=== PATIENT | female | born 1945 | race Two or more races ===

== ENCOUNTER → 2017-09-05 | Outpatient (CLI) | payer OTHER ==
[2017-09-05] MEDS: REGADENOSON 0.4 MG/5 ML DISP.SYRIN. IV (09:51)
== END | disposition home or self-care (01) ==
LOC: NM 07:59
DX: I73.9 Peripheral vascular disease, unspecified (principal); K21.9 Gastro-esophageal reflux disease without esophagitis; R06.00 Dyspnea, unspecified
CPT/HCPCS: 78452; 93017; 93925; 93970; 96374; 96375; 96376; A9500; J2785

== ENCOUNTER → 2017-09-29 | Outpatient (CLI) | payer OTHER | END | disposition home or self-care (01) | LOC: ECHO 11:46 | DX: I51.7 Cardiomegaly (principal); K21.9 Gastro-esophageal reflux disease without esophagitis; R07.9 Chest pain, unspecified | CPT/HCPCS: 93306 ==

== ENCOUNTER 2018-01-03 17:23 | Inpatient (IN) | payer OTHER ==
[~2018-01-03] VITALS: Ht 160 cm; Wt 64.4 kg
[2018-01-03] MEDS ORDERED: MORPHINE SULFATE 4 MG/ML VIAL. IV ONE (18:15)
[2018-01-03] MEDS ORDERED: CONTRAST GIVEN. MC PRN (18:15)
[2018-01-03] MEDS ORDERED: IOHEXOL 300 MG/ML 100ML VIAL. IV ONE (18:15)
[2018-01-03] MEDS ORDERED: ONDANSETRON PF 4 MG/2 ML VIAL. IV ONE (18:15)
[2018-01-03 18:24] LABS: BASO # 0.1 x10^3/uL (0.0-0.2); BASO % 1 % (0-3); EOS % 0 % (0-3); HEMATOCRIT 37.6 % (36.0-47.0); HEMOGLOBIN 12.3 g/dL (12.0-15.5); LYMPH # 0.5 x10^3/uL (1.0-4.8); LYMPH % 4 % (24-48); MEAN CORPUSCULAR HEMOGLOBIN 26 pg (25-35); MEAN CORPUSCULAR HGB CONC 33 g/dL (31-37); MEAN CORPUSCULAR VOLUME 80 fL (79-100); MONO # 0.9 x10^3/uL (0.0-1.1); MONO % 5 % (0-9); NEUT # 14.3 x10^3uL (1.8-7.7); NEUT % 91 % (31-73); PLATELET COUNT 231 x10^3/uL (140-400); RED CELL DISTRIBUTION WIDTH 15.9 % (11.5-14.5); WHITE BLOOD COUNT 15.8 x10^3/uL (4.0-11.0)
[2018-01-03 18:25] LABS: BILIRUBIN,URINE NEGATIVE (NEG); CLARITY,URINE CLEAR; COLOR,URINE YELLOW; NITRITE,URINE NEGATIVE (NEG); PH,URINE 8.5; PROTEIN,URINE NEGATIVE (NEG-TRACE)
[2018-01-03 18:32] LABS: BACTERIA,URINE 0 /HPF (0-FEW); RBC,URINE 0 /HPF (0-2); SQUAMOUS EPITHELIAL CELL,UR FEW /LPF; WBC,URINE RARE /HPF (0-4)
[2018-01-03 18:35] LABS: CALCIUM 9.8 mg/dL (8.5-10.1); CREATININE 0.6 mg/dL (0.6-1.0); GFR 98.5; POTASSIUM 3.9 mmol/L (3.5-5.1)
[2018-01-03 18:41] LABS: ALBUMIN 3.6 g/dL (3.4-5.0); DIRECT BILIRUBIN 0.1 mg/dL (0.0-0.2); TOTAL BILIRUBIN 0.5 mg/dL (0.2-1.0); TOTAL PROTEIN 7.5 g/dL (6.4-8.2)
--- NOTE | 2018-01-03 19:00 | PHYS DOC ---
Past Medical History Past Medical History: Diabetes-Type I Additional Past Surgical Histo: CYST REMOVAL ON OVARY Alcohol Use: None Adult General Chief Complaint Chief Complaint: ABDOMINAL PAIN HPI HPI Patient is a 72 year old female who presents with abdominal pain. Patient is a Portuguese speaking 72-year-old female who complains of diffuse abdominal pain over the last 3-4 days. Pain is not localized. She does have a history of hysterectomy previously. This was many years ago. She has some nausea and did have one episode of emesis as she was checking into the emergency department. She denies hematemesis or hematochezia or melanotic stools. Her last bowel movement was 3 days ago which is not normal for her. She denies urinary symptoms. She denies prior history of similar symptoms. Review of Systems Review of Systems Constitutional: Denies Eyes: Denies change in visual acuity HENT: Denies nasal congestion Respiratory: Denies cough Cardiovascular: No additional information GI: as documented above : Denies dysuria or hematuria Musculoskeletal: Denies back pain Integument: Denies rash or skin lesions Neurologic: Denies headache Endocrine: Denies polyuria All other systems were reviewed and found to be within normal limits, except as documented in this note. Current Medications Current Medications Allergies Allergies Allergies Coded Allergies Type Severity Reaction Last Updated Verified No Known Drug Allergies 09/05/17 No Physical Exam Physical Exam Constitutional: Well developed, well nourished, no acute distress HENT: Normocephalic, atraumatic, bilateral external ears normal, oropharynx moist Eyes: PERRLA, EOMI, conjunctiva normal Neck: Normal range of motion, no tenderness Cardiovascular:Heart rate regular rhythm, no murmur Lungs & Thorax: Bilateral breath sounds clear to auscultation Abdomen: Soft, TTP over right LQ. mildly guarded Skin: Warm, dry, no erythema Back: No tenderness Extremities: No tenderness, no edema Neurologic: Alert and oriented X 3 Psychologic: Affect normal Current Patient Data Vital Signs Lab Values EKG EKG No STEMI Interpretation Time: 19:25 Radiology/Procedures Radiology/Procedures FINDINGS: Images through the lung bases demonstrate minimal dependent subsegmental atelectasis bilaterally. The liver parenchyma has a decreased attenuation consistent with mild fatty infiltration. The spleen, pancreas, adrenal glands and kidneys are within normal limits. Moderate atherosclerotic calcification of the abdominal aorta is seen. The abdominal aorta tapers normally. Calcified gallstones are seen within the gallbladder. No free fluid or free air is seen within the abdomen. There is no evidence of bowel obstruction. The appendix is dilated measuring 1.8 cm in diameter. Mild wall thickening of the appendix is seen. Increased density is seen within the adjacent fat. These findings are consistent with acute appendicitis. No abnormal fluid collection is seen to suggest evidence of an abscess. Images through the pelvis demonstrate the urinary bladder distended with urine. Calcifications are seen within the pelvis consistent with phleboliths. No free fluid is seen. Multiple diverticula are seen involving the sigmoid colon. Degenerative changes are seen involving the thoracic and throughout the lumbar spine and both hips. IMPRESSION: Findings consistent with acute appendicitis. Course & Med Decision Making Course & Med Decision Making Pertinent Labs and Imaging studies reviewed. (See chart for details) Patient is seen and examined. Morphine for pain. CT scan and standard abd pain workup. Trop/EKG. 19:45: Pain is currently improved. CT scan is revealing for acute appendicitis which is consistent with the patient's presentation. She last ate at 9 AM this morning. Surgery is consulted. 20:30: Discussed with Dr. Peralta who will take patient to OR in the am. Patient is currently stable with no fever. She has mildly elevated white blood cell count but is nontoxic in appearance. Her abdominal exam is positive for tenderness at McBurney's point but no guarding or rebound. I also spoke to the patient's primary care physician, Dr. Drake, who will primarily admit. Orders are placed for Ancef 2 g as well as Flagyl 500. Patient's family member is primary implementation manager. All results are explained and all of her questions are answered prior to admission. She is agreeable to the plan of care. Dragon Disclaimer Dragon Disclaimer This electronic medical record was generated, in whole or in part, using a voice recognition dictation system. Departure Departure Referrals: ELLIOTT DRAKE MD (PCP) ALFREDA MAHONEY DO Jan 03, 2018 19:00
--- NOTE | 2018-01-03 19:26 | RAD ---
CT scan of the abdomen and pelvis with contrast 01/03/2018 CLINICAL HISTORY: Abdominal pain with nausea. TECHNIQUE: After the intravenous administration of 75 cc of Omnipaque 300, contiguous, 5 mm axial sections were obtained through the abdomen and pelvis. One or more of the following individualized dose reduction techniques were utilized for this study: 1. Automated exposure control. 2. Adjustment of the mA and/or kV according to patient size. 3. Use of iterative reconstruction technique. FINDINGS: Images through the lung bases demonstrate minimal dependent subsegmental atelectasis bilaterally. The liver parenchyma has a decreased attenuation consistent with mild fatty infiltration. The spleen, pancreas, adrenal glands and kidneys are within normal limits. Moderate atherosclerotic calcification of the abdominal aorta is seen. The abdominal aorta tapers normally. Calcified gallstones are seen within the gallbladder. No free fluid or free air is seen within the abdomen. There is no evidence of bowel obstruction. The appendix is dilated measuring 1.8 cm in diameter. Mild wall thickening of the appendix is seen. Increased density is seen within the adjacent fat. These findings are consistent with acute appendicitis. No abnormal fluid collection is seen to suggest evidence of an abscess. Images through the pelvis demonstrate the urinary bladder distended with urine. Calcifications are seen within the pelvis consistent with phleboliths. No free fluid is seen. Multiple diverticula are seen involving the sigmoid colon. Degenerative changes are seen involving the thoracic and throughout the lumbar spine and both hips. IMPRESSION: Findings consistent with acute appendicitis. Electronically signed by: Aroldo Sutton MD (01/03/2018 7:23 PM) [facility]
[2018-01-03] MEDS ORDERED: ONDANSETRON PF 4 MG/2 ML VIAL. IV PRN (20:00)
[2018-01-03] MEDS ORDERED: IV RINGERS,LACTATED 1000ML 1,000 ML IV ONE (20:00)
[2018-01-03] MEDS: MORPHINE SULFATE 4 MG/ML VIAL. IV PRN (20:31)
[2018-01-03 21:15] VITALS: BP 117/51
[2018-01-03] MEDS ORDERED: LISI-334 PO (22:21)
[2018-01-03] MEDS ORDERED: INSU100I13 SQ (22:21)
[2018-01-03] MEDS ORDERED: ATOR20TA58 PO (22:21)
[2018-01-03] MEDS ORDERED: METF10007 PO (22:21)
[2018-01-03] MEDS ORDERED: INSU100C4 SQ (22:21)
[2018-01-03 23:00] VITALS: BP 111/48
[2018-01-04] VITALS (11 sets, daily range): BP systolic 108–128; BP diastolic 45–65
--- NOTE | 2018-01-04 00:03 | EKG ---
[facility] [address] [place] [address] Test Date: 2018-01-03 Test Time: 19:21:23 Pat Name: RAJIV BARRERA Department: Room: 418 1 Gender: Female Anesthesia Director: : [id number] Requested By: ALFREDA MAHONEY Order Number: [id number] Reading MD: Robert Carter MD Measurements Intervals [place] Rate: 88 P: NV: QRS: 43 QRSD: 90 T: 37 QT: 366 QTc: 446 Interpretive Statements SR PAC'S Electronically Signed On 01-04-2018 8:10:27 CDT by Robert Carter MD
[2018-01-04] MEDS: MORPHINE SULFATE 4 MG/ML VIAL. IV PRN (00:53)
[2018-01-04 06:58] LABS: BASO % 0 % (0-3); EOS % 0 % (0-3); HEMATOCRIT 34.3 % (36.0-47.0); HEMOGLOBIN 11.3 g/dL (12.0-15.5); LYMPH # 0.5 x10^3/uL (1.0-4.8); LYMPH % 3 % (24-48); MEAN CORPUSCULAR HEMOGLOBIN 27 pg (25-35); MEAN CORPUSCULAR HGB CONC 33 g/dL (31-37); MEAN CORPUSCULAR VOLUME 81 fL (79-100); MONO # 1.5 x10^3/uL (0.0-1.1); MONO % 8 % (0-9); NEUT # 16.7 x10^3uL (1.8-7.7); NEUT % 89 % (31-73); PLATELET COUNT 209 x10^3/uL (140-400); RED BLOOD COUNT 4.25 x10^6/uL (3.50-5.40); RED CELL DISTRIBUTION WIDTH 15.9 % (11.5-14.5); WHITE BLOOD COUNT 18.8 x10^3/uL (4.0-11.0)
[2018-01-04 07:21] LABS: CALCIUM 9.2 mg/dL (8.5-10.1); CREATININE 0.7 mg/dL (0.6-1.0); GFR 82.5; POTASSIUM 3.7 mmol/L (3.5-5.1)
[2018-01-04 08:35] LABS: % BANDS 18 % (0-9); % LYMPHS 3 % (24-48); % MONOS 6 % (0-10); % SEGS 73 % (35-66)
[2018-01-04 08:36] LABS: PLT ESTIMATE ADEQUATE (ADEQUATE)
--- NOTE | 2018-01-04 08:37 | PDOC2 ---
CONSULT Date of Consult Date of Consult DATE: 01/04/18 TIME: 08:31 History of Present Illness Reason for Visit: The patient is a 72 year old female who has been experiencing 3 days of abdominal pain. The pain worsened yesterday and localized to the RLQ. She has associated vomiting. Past Medical History Past Medical History Diabetes Past Surgical History Past Surgical History Ovarian excision Current Medications Current Medications Current Medications Iohexol (Omnipaque 300 Mg/ml) 75 ml 1X ONCE IV Last administered on 01/03/18at 18:15; Start 01/03/18 at 18:15; Stop 01/03/18 at 18:16; Status DC Info (CONTRAST GIVEN -- Rx MONITORING) 1 each PRN DAILY PRN MC SEE COMMENTS; Start 01/03/18 at 18:15; Stop 01/05/18 at 18:14 Morphine Sulfate (Morphine Sulfate) 4 mg 1X ONCE IV Last administered on at 18:46; Start 01/03/18 at 18:15; Stop 01/03/18 at 18:18; Status DC Ondansetron HCl (Zofran) 4 mg 1X ONCE IV Last administered on 01/03/18at 18:44 ; Start 01/03/18 at 18:15; Stop 01/03/18 at 18:18; Status DC Ondansetron HCl (Zofran) 4 mg PRN Q8HRS PRN IV NAUSEA/VOMITING Last administered on 01/03/18at 21:28; Start 01/03/18 at 20:00; Stop 01/04/18 at 19:59 Morphine Sulfate (Morphine Sulfate) 4 mg PRN Q2HR PRN IV PAIN Last administered on 01/04/18at 00:53; Start 01/03/18 at 20:00; Stop 01/04/18 at 19:59 Ringer's Solution 1,000 ml @ 75 mls/hr 1X ONCE IV Last administered on at 21:48; Start 01/03/18 at 20:00; Stop 01/04/18 at 09:19 Cefazolin Sodium/ Dextrose 50 ml @ 100 mls/hr 1X ONCE IV Last administered on 01/03/18at 20:35; Start 01/03/18 at 20:00; Stop 01/03/18 at 20:29; Status DC Metronidazole 100 ml @ 100 mls/hr 1X ONCE IV Last administered on 01/03/18at 21:48; Start 01/03/18 at 20:00; Stop 01/03/18 at 20:59; Status DC Active Scripts Active Reported Atorvastatin Calcium 20 Mg Tablet 1 Tab PO DAILY Lisinopril 20 Mg Tablet 1 Tab PO DAILY Metformin Hcl 1,000 Mg Tablet 1,000 Mg PO BID Novolog (Insulin Aspart) 100 Unit/1 Ml Cartridge 15 Unit SQ TIDWMEALS Lantus Solostar (Insulin Glargine,Hum.rec.anlog) 100 Unit/1 Ml Insuln.pen 40 Unit SQ QHS Allergies Allergies: Coded Allergies: No Known Drug Allergies (Unverified , 09/05/17) ROS General: No: Chills, Night Sweats, Fatigue, Malaise, Appetite, Other PSYCHOLOGICAL ROS: No: Anxiety, Behavioral Disorder, Concentration difficultie , Decreased libido, Depression, Disorientation, Hallucinations, Hostility, Irritablity, Memory difficulties, Mood Swings, Obsessive thoughts, Physical abuse, Sexual abuse, Sleep disturbances, Suicidal ideation, Other Eyes: No Blurry vision, No Decreased vision, No Double vision, No Dry eyes, No Excessive tearing, No Eye Pain, No Itchy Eyes, No Loss of vision, No Photophobia , No Scotomata, No Uses contacts, No Uses glasses, No Other HEENT: No: Heacaches, Visual Changes, Hearing change, Nasal congestion, Nasal discharge, Oral lesions, Sinus pain, Sore Throat, Epistaxis, Sneezing, Snoring, Tinnitus, Vertigo, Vocal changes, Other Respiratory: No: Cough, Hemoptysis, Orthopnea, Pleuritic Pain, Shortness of breath, SOB with excertion, Sputum Changes, Stridor, Tachypnea, Wheezing, Other Cardiovascular: No Chest Pain, No Palpitations, No Orthopnea, No Paroxysmal Noc. Dyspnea, No Edema, No Lt Headedness, No Other Gastrointestinal: No Nausea, No Vomiting, No Abdominal Pain, No Diarrhea, No Constipation, No Melena, No Hematochezia, No Other Genitourinary: No Dysuria, No Frequency, No Incontinence, No Hematuria, No Retention, No Discharge, No Urgency, No Pain, No Flank Pain, No Other, No , No , No , No , No , No , No Musculoskeletal: No Gait Disturbance, No Joint Pain, No Joint Stiffness, No Joint Swelling, No Muscle Pain, No Muscular Weakness, No Pain In:, No Swelling In:, No Other Skin: No Dry Skin, No Eczema, No Hair Changes, No Lumps, No Mole Changes, No Mottling, No Nail Changes, No Pruritus, No Rash, No Skin Lesion Changes, No Other, No Acne Physical Exam General: Alert, Oriented X3, Cooperative HEENT: Atraumatic Lungs: Clear to auscultation Abdomen: Soft (obese, tender low abdomen, worse RLQ) Extremities: No clubbing, No cyanosis Skin: No rashes, No breakdown Neuro: Normal gait, Normal speech Psych/Mental Status: Mental status NL MUSCULOSKELETAL: No joint tenderness, No swelling Vitals VITALS Vital Signs Date Time Temp Pulse Resp B/P (MAP) Pulse Ox O2 Delivery O2 Flow Rate FiO2 01/04/18 07:00 98.3 90 16 113/53 (73) 94 Room Air 98.3 01/03/18 23:00 2.0 Labs Labs Laboratory Tests Test 01/03/18 18:15 01/03/18 23:02 01/04/18 05:48 01/04/18 06:30 White Blood Count 15.8 x10^3/uL (4.0-11.0) 18.8 x10^3/uL (4.0-11.0) Red Blood Count 4.70 x10^6/uL (3.50-5.40) 4.25 x10^6/uL (3.50-5.40) Hemoglobin 12.3 g/dL (12.0-15.5) 11.3 g/dL (12.0-15.5) Hematocrit 37.6 % (36.0-47.0) 34.3 % (36.0-47.0) Mean Corpuscular Volume 80 fL (79-100) 81 fL (79-100) Mean Corpuscular Hemoglobin 26 pg (25-35) 27 pg (25-35) Mean Corpuscular Hemoglobin Concent 33 g/dL (31-37) 33 g/dL (31-37) Red Cell Distribution Width 15.9 % (11.5-14.5) 15.9 % (11.5-14.5) Platelet Count 231 x10^3/uL (140-400) 209 x10^3/uL (140-400) Neutrophils (%) (Auto) 91 % (31-73) 89 % (31-73) Lymphocytes (%) (Auto) 4 % (24-48) 3 % (24-48) Monocytes (%) (Auto) 5 % (0-9) 8 % (0-9) Eosinophils (%) (Auto) 0 % (0-3) 0 % (0-3) Basophils (%) (Auto) 1 % (0-3) 0 % (0-3) Neutrophils # (Auto) 14.3 x10^3uL (1.8-7.7) 16.7 x10^3uL (1.8-7.7) Lymphocytes # (Auto) 0.5 x10^3/uL (1.0-4.8) 0.5 x10^3/uL (1.0-4.8) Monocytes # (Auto) 0.9 x10^3/uL (0.0-1.1) 1.5 x10^3/uL (0.0-1.1) Eosinophils # (Auto) 0.0 x10^3/uL (0.0-0.7) 0.0 x10^3/uL (0.0-0.7) Basophils # (Auto) 0.1 x10^3/uL (0.0-0.2) 0.0 x10^3/uL (0.0-0.2) Urine Collection Type Unknown Urine Color Yellow Urine Clarity Clear Urine pH 8.5 Urine Specific [place] 1.020 Urine Protein Negative mg/dL (NEG-TRACE) Urine Glucose (UA) Negative mg/dL (NEG) Urine Ketones (Stick) Trace mg/dL (NEG) Urine Blood Negative (NEG) Urine Nitrite Negative (NEG) Urine Bilirubin Negative (NEG) Urine Urobilinogen Dipstick 1.0 mg/dL (0.2 mg/dL) Urine Leukocyte Esterase Negative (NEG) Urine RBC 0 /HPF (0-2) Urine WBC Rare /HPF (0-4) Urine Squamous Epithelial Cells Few /LPF Urine Bacteria 0 /HPF (0-FEW) Urine Mucus Mod /LPF Sodium Level 139 mmol/L (136-145) 139 mmol/L (136-145) Potassium Level 3.9 mmol/L (3.5-5.1) 3.7 mmol/L (3.5-5.1) Chloride Level 102 mmol/L (98-107) 102 mmol/L (98-107) Carbon Dioxide Level 28 mmol/L (21-32) 29 mmol/L (21-32) Anion Gap 9 (6-14) 8 (6-14) Blood Urea Nitrogen 14 mg/dL (7-20) 15 mg/dL (7-20) Creatinine 0.6 mg/dL (0.6-1.0) 0.7 mg/dL (0.6-1.0) Estimated GFR (Cockcroft-Gault) 98.5 82.5 Glucose Level 188 mg/dL (70-99) 173 mg/dL (70-99) Lactic Acid Level 1.5 mmol/L (0.4-2.0) Calcium Level 9.8 mg/dL (8.5-10.1) 9.2 mg/dL (8.5-10.1) Total Bilirubin 0.5 mg/dL (0.2-1.0) Direct Bilirubin 0.1 mg/dL (0.0-0.2) Aspartate Amino Transf (AST/SGOT) 12 U/L (15-37) Alanine Aminotransferase (ALT/SGPT) 19 U/L (14-59) Alkaline Phosphatase 96 U/L (46-116) Troponin I Quantitative < 0.017 ng/mL (0.000-0.055) Total Protein 7.5 g/dL (6.4-8.2) Albumin 3.6 g/dL (3.4-5.0) Lipase 67 U/L (73-393) Glucose (Fingerstick) 162 mg/dL (70-99) 177 mg/dL (70-99) Test 01/04/18 07:41 Glucose (Fingerstick) 159 mg/dL (70-99) Laboratory Tests Test 01/03/18 18:15 01/03/18 23:02 01/04/18 05:48 01/04/18 06:30 White Blood Count 15.8 x10^3/uL (4.0-11.0) 18.8 x10^3/uL (4.0-11.0) Red Blood Count 4.70 x10^6/uL (3.50-5.40) 4.25 x10^6/uL (3.50-5.40) Hemoglobin 12.3 g/dL (12.0-15.5) 11.3 g/dL (12.0-15.5) Hematocrit 37.6 % (36.0-47.0) 34.3 % (36.0-47.0) Mean Corpuscular Volume 80 fL (79-100) 81 fL (79-100) Mean Corpuscular Hemoglobin 26 pg (25-35) 27 pg (25-35) Mean Corpuscular Hemoglobin Concent 33 g/dL (31-37) 33 g/dL (31-37) Red Cell Distribution Width 15.9 % (11.5-14.5) 15.9 % (11.5-14.5) Platelet Count 231 x10^3/uL (140-400) 209 x10^3/uL (140-400) Neutrophils (%) (Auto) 91 % (31-73) 89 % (31-73) Lymphocytes (%) (Auto) 4 % (24-48) 3 % (24-48) Monocytes (%) (Auto) 5 % (0-9) 8 % (0-9) Eosinophils (%) (Auto) 0 % (0-3) 0 % (0-3) Basophils (%) (Auto) 1 % (0-3) 0 % (0-3) Neutrophils # (Auto) 14.3 x10^3uL (1.8-7.7) 16.7 x10^3uL (1.8-7.7) Lymphocytes # (Auto) 0.5 x10^3/uL (1.0-4.8) 0.5 x10^3/uL (1.0-4.8) Monocytes # (Auto) 0.9 x10^3/uL (0.0-1.1) 1.5 x10^3/uL (0.0-1.1) Eosinophils # (Auto) 0.0 x10^3/uL (0.0-0.7) 0.0 x10^3/uL (0.0-0.7) Basophils # (Auto) 0.1 x10^3/uL (0.0-0.2) 0.0 x10^3/uL (0.0-0.2) Urine Collection Type Unknown Urine Color Yellow Urine Clarity Clear Urine pH 8.5 Urine Specific [place] 1.020 Urine Protein Negative mg/dL (NEG-TRACE) Urine Glucose (UA) Negative mg/dL (NEG) Urine Ketones (Stick) Trace mg/dL (NEG) Urine Blood Negative (NEG) Urine Nitrite Negative (NEG) Urine Bilirubin Negative (NEG) Urine Urobilinogen Dipstick 1.0 mg/dL (0.2 mg/dL) Urine Leukocyte Esterase Negative (NEG) Urine RBC 0 /HPF (0-2) Urine WBC Rare /HPF (0-4) Urine Squamous Epithelial Cells Few /LPF Urine Bacteria 0 /HPF (0-FEW) Urine Mucus Mod /LPF Sodium Level 139 mmol/L (136-145) 139 mmol/L (136-145) Potassium Level 3.9 mmol/L (3.5-5.1) 3.7 mmol/L (3.5-5.1) Chloride Level 102 mmol/L (98-107) 102 mmol/L (98-107) Carbon Dioxide Level 28 mmol/L (21-32) 29 mmol/L (21-32) Anion Gap 9 (6-14) 8 (6-14) Blood Urea Nitrogen 14 mg/dL (7-20) 15 mg/dL (7-20) Creatinine 0.6 mg/dL (0.6-1.0) 0.7 mg/dL (0.6-1.0) Estimated GFR (Cockcroft-Gault) 98.5 82.5 Glucose Level 188 mg/dL (70-99) 173 mg/dL (70-99) Lactic Acid Level 1.5 mmol/L (0.4-2.0) Calcium Level 9.8 mg/dL (8.5-10.1) 9.2 mg/dL (8.5-10.1) Total Bilirubin 0.5 mg/dL (0.2-1.0) Direct Bilirubin 0.1 mg/dL (0.0-0.2) Aspartate Amino Transf (AST/SGOT) 12 U/L (15-37) Alanine Aminotransferase (ALT/SGPT) 19 U/L (14-59) Alkaline Phosphatase 96 U/L (46-116) Troponin I Quantitative < 0.017 ng/mL (0.000-0.055) Total Protein 7.5 g/dL (6.4-8.2) Albumin 3.6 g/dL (3.4-5.0) Lipase 67 U/L (73-393) Glucose (Fingerstick) 162 mg/dL (70-99) 177 mg/dL (70-99) Test 01/04/18 07:41 Glucose (Fingerstick) 159 mg/dL (70-99) Assessment/Plan Assessment/Plan 72 year old female with RLQ pain, CT consistent with appendicitis. Plan to OR for laparoscopy. The details and risks of surgery were discussed with the patient and her daughter. She understands and would like to proceed. CAITLIN STEVE MD Jan 04, 2018 08:37
[2018-01-04] MEDS ORDERED: PROPOFOL 20 ML IV ONE (09:04)
[2018-01-04] MEDS ORDERED: SUCCINYLCHOLINE 200 MG/10 ML VIAL. ONE (09:04)
[2018-01-04] MEDS ORDERED: ROCURONIUM 50 MG/5 ML VIAL. ONE (09:04)
[2018-01-04] MEDS ORDERED: fentaNYL PF VIAL 100 MCG/2 ML VIAL ONE ×3 (09:04→14:02)
[2018-01-04] MEDS ORDERED: BUPIVACAINE-EPI 0.5%-1:200000 50 ML VIAL. ONE (09:27)
[2018-01-04] MEDS ORDERED: PIPERACILLIN/TAZOBACTAM 3.375 GM in IV NORMAL SALINE 50ML 50 ML IV ONE (09:45)
[2018-01-04] MEDS ORDERED: DEXAMETHASONE SOD PHOS 20 MG/5 ML VIAL. ONE (10:52)
[2018-01-04] MEDS ORDERED: DESFLURANE 31 TO 60 MINUTES IH ONE (10:52)
[2018-01-04] MEDS ORDERED: ONDANSETRON PF 4 MG/2 ML VIAL. ONE (10:52)
[2018-01-04] MEDS ORDERED: IV RINGERS,LACTATED 1000ML 1,000 ML IV SCH (10:57)
[2018-01-04] MEDS ORDERED: MORPHINE SULFATE 2 MG/ML VIAL. IV PRN (11:00)
[2018-01-04] MEDS ORDERED: HYDROmorphone 2 MG/ML VIAL IV PRN (11:00)
[2018-01-04] MEDS ORDERED: PROCHLORPERAZINE 10 MG/2 ML VIAL. IV PRN (11:00)
[2018-01-04] MEDS ORDERED: LIDOCAINE 1% PF 2 ML VIAL. ID PRN (11:00)
[2018-01-04] MEDS ORDERED: fentaNYL PF VIAL 100 MCG/2 ML VIAL IV PRN ×2 (11:00)
[2018-01-04] MEDS ORDERED: ONDANSETRON PF 4 MG/2 ML VIAL. IV PRN (11:00)
[2018-01-04] MEDS ORDERED: NEOSTIGMINE METHYLSULFATE 5 MG/5 ML SYRINGE. ONE (11:05)
[2018-01-04] MEDS ORDERED: GLYCOPYRROLATE 1 MG/5 ML VIAL. ONE (11:05)
[2018-01-04] MEDS ORDERED: PHENYLEPHRINE in 0.9% NACL PF 1 MG/10 ML SYRINGE. IV ONE (11:09)
[2018-01-04] MEDS ORDERED: IV NORMAL SALINE 1000ML BAG 1,000 ML IV SCH (11:29)
[2018-01-04] MEDS: INSULIN LISPRO 300 UNITS/3 ML INSULN.PEN. SQ SCH ×3 (12:00→18:12)
[2018-01-04] MEDS: LISINOPRIL 20 MG TABLET PO SCH (12:00)
--- NOTE | 2018-01-04 12:06 | HP ---
ADMIT DATE: 01/03/2018 CHIEF COMPLAINT: Abdominal pain. HISTORY OF PRESENT ILLNESS AND HOSPITAL COURSE: This patient is a 72-year-old female who came into the hospital with a 48-hour history of increasing abdominal pain. She was evaluated and had right lower quadrant pain with confirmed appendicitis by CT. She also had elevated white count. Due to severity of symptoms, Surgery was consulted and the patient was admitted to the hospital for further evaluation and urgent surgery. PAST MEDICAL HISTORY: Significant for: 1. Type 2 diabetes. 2. Hypercholesterolemia. 3. Hypertension. 4. Venous insufficiency. 5. Osteoarthritis. PAST SURGICAL HISTORY: Significant for cataract in right eye and ovarian surgery. SOCIAL HISTORY: The patient does not smoke or use alcohol. She quit smoking over a year ago and is a former smoker. The patient lives with daughter and is Eritrean speaking. ALLERGIES: The patient exhibits no known drug allergies. REVIEW OF SYSTEMS: The patient was doing well until 48 hours ago when she began having increasing abdominal pain localizing to the right lower quadrant over the last 24 hours. The patient has been having bowel movements until the last 24 hours. She denies any cough, congestion, chest pain, or shortness of breath. She has had no recent weight gain or weight loss. PHYSICAL EXAMINATION: GENERAL: This is a well-nourished, well-developed, female in no apparent distress on my exam, she is alert and oriented x 3. HEENT: Benign. CARDIAC: Regular rate and rhythm. LUNGS: Clear. ABDOMEN: Soft with tenderness in the right lower quadrant with guarding and minimal rebound. EXTREMITIES: 2+ pulses without significant edema. NEUROLOGIC: Showed no unilateral findings. ASSESSMENT AND PLAN: 1. Acute appendicitis. Plan to proceed with surgical consultation treatment. 2. Type 2 diabetes. Monitor sugar levels and manage hypertension, diabetes during hospital stay and continue to follow. ELLIOTT DRAKE MD DR: MARISSA/ysabel JOB#: [id number] / [id number]
[2018-01-04] MEDS ORDERED: MORPHINE SULFATE/PF 30 ML IV PRN (13:30)
--- NOTE | 2018-01-04 13:41 | PDOC4 ---
Operative Note Operative Note Preoperative Diagnosis: Acute Appendicitis Postoperative Diagnosis: Same Procedure: Laparoscopic converted to open appendectomy Surgeon: Dc Asst: Marguerite YOUNG Anesthesia: Gen. EBL: 50 mL Specimen: Appendix to pathology Drains: None Complications: None Indication: The patient is a 72-year-old female who reported to the emergency department with abdominal pain. The evaluation is consistent with acute appendicitis. The patient was offered surgical treatment with a laparoscopic appendectomy. The risks of surgery were discussed which include bleeding, infection, visceral injury, pain, anesthetic risk, potential need for additional surgery or procedure. The patient understands and would like to proceed. Description: The patient was taken to the operating room and placed supine on the operating table. Gen. anesthesia was performed. The abdomen was prepped with ChloraPrep and draped in a standard surgical manner. A visualized 5 mm trocar was inserted in the left upper abdomen. A pneumoperitoneum was then created and the laparoscope was introduced. Initial inspection of the abdomen showed several areas of adhesions of the omentum to the abdominal wall from prior surgery. In the left lower quadrant a 5 mm trocar was inserted. Sharp dissection was used for lysis of adhesions freeing up the omentum from the anterior abdominal wall. In the lower midabdomen a 12 mm trocar was inserted. We then directed our attention the right lower quadrant and identified the cecum. The appendix could not initially be identified due to multiple adhesions involving small bowel loops. Two additional 5 mm trochars were then placed one in the left abdomen and one in the right abdomen to assist with lysis of adhesions and mobilization of the small bowel. We still had some difficulty identifying the appendix however by moving the laparoscope to the other port sites we were finally able to see an acutely inflamed appendix. There was no clear evidence of perforation or periappendiceal abscess. We began bluntly freeing up some of the surrounding inflammatory adhesions which were quite dense. The mesoappendix was bluntly from the appendix. The mesoappendix was controlled using several clips and it was divided. We continued mobilizing the appendix proximally however were unable to identify clearly its junction with the cecum. With the Harmonic scalpel we mobilized some of the lateral attachments of the cecum to improve exposure. With repeated attempts and considerable time and effort we remained unable to clearly visualize the junction of the appendix with the cecum. We inverted to an open procedure to ensure securing the appendix base. A lower vertical midline incision was made with a scalpel at the site of her prior scar. Cautery dissection was carried through subcutaneous tissue. The fascia and peritoneum were then divided, and the Omni retractor was used to facilitate exposure. With gradual continued dissection were able to fully free up the remaining proximal portion of the appendix up to the cecum. The cecum seemed to overlap the appendix making the dissection initially difficult. Eventually however we clarified the junction with the cecum. The appendix was then emptied off the cecum using an Endo STEPHANY 45 stapling device. The appendix was then sent to pathology for evaluation. Some irrigation fluid was instilled in the right lower quadrant and then suctioned. Hemostasis appeared good and no other abnormalities were identified. The fascia was approximated with 1 PDS. A Ney drain was placed in the subcutaneous space and exited inferiorly. This was secured to the skin with a Vicryl suture. The skin was then approximated over the drain with 4-0 Monocryl was also used to close the laparoscopic incisions. Steri-Strips and a dressing were applied. The patient tolerated the procedure well sent to the recovery room in stable condition. At the end of the case all counts were correct. CAITLIN STEVE MD Jan 04, 2018 13:41
[2018-01-04] MEDS ORDERED: INSULIN LISPRO 100 UNIT/ML 3ML VIAL. SQ ONE (14:00)
[2018-01-04] MEDS: ENOXAPARIN 40 MG/0.4 ML SYRINGE. SQ SCH (14:00)
[2018-01-04] MEDS ORDERED: MORPHINE SULFATE/PF 30 ML IV ONE (14:03)
[2018-01-04] MEDS: PIPERACILLIN/TAZOBACTAM 3.375 GM in IV NORMAL SALINE 50ML 50 ML IV SCH (17:40)
[2018-01-04] MEDS ORDERED: DEXTROSE 50% 25 GM / 50ML DISP.SYRIN. IV PRN (18:00)
[2018-01-04] MEDS ORDERED: diphenhydrAMINE HCL 25 MG CAPSULE PO PRN (20:00)
[2018-01-04] MEDS: ATORVASTATIN CALCIUM 20 MG TABLET PO SCH (20:35)
[2018-01-04] MEDS: INSULIN GLARGINE 300 UNITS/3 ML INSULN.PEN. SQ SCH (21:42)
[2018-01-05] MEDS: PIPERACILLIN/TAZOBACTAM 3.375 GM in IV NORMAL SALINE 50ML 50 ML IV SCH ×4 (00:12→18:24)
[2018-01-05] MEDS ORDERED: CELE200C PO (02:13)
[2018-01-05 03:00] VITALS: BP 102/34
[2018-01-05 04:30] LABS: BASO % 0 % (0-3); EOS % 0 % (0-3); LYMPH # 0.7 x10^3/uL (1.0-4.8); LYMPH % 4 % (24-48); MEAN CORPUSCULAR HEMOGLOBIN 27 pg (25-35); MEAN CORPUSCULAR HGB CONC 33 g/dL (31-37); MEAN CORPUSCULAR VOLUME 80 fL (79-100); MONO % 6 % (0-9); NEUT # 14.7 x10^3uL (1.8-7.7); NEUT % 89 % (31-73); PLATELET COUNT 188 x10^3/uL (140-400); RED BLOOD COUNT 3.74 x10^6/uL (3.50-5.40); RED CELL DISTRIBUTION WIDTH 15.6 % (11.5-14.5); WHITE BLOOD COUNT 16.4 x10^3/uL (4.0-11.0)
[2018-01-05 05:15] LABS: ALBUMIN 2.6 g/dL (3.4-5.0); ALBUMIN/GLOBULIN RATIO 0.7 (1.0-1.7); ALK PHOS 82 U/L (46-116); ANION GAP 8 (6-14); AST (SGOT) 14 U/L (15-37); BLOOD UREA NITROGEN 19 mg/dL (7-20); BUN/CREATININE RATIO 24 (6-20); CALCIUM 8.1 mg/dL (8.5-10.1); CARBON DIOXIDE 27 mmol/L (21-32); CHLORIDE 100 mmol/L (98-107); CREATININE 0.8 mg/dL (0.6-1.0); GFR 70.7; GLUCOSE 167 mg/dL (70-99); SODIUM 135 mmol/L (136-145); TOTAL BILIRUBIN 0.8 mg/dL (0.2-1.0); TOTAL PROTEIN 6.1 g/dL (6.4-8.2)
[2018-01-05 05:23] LABS: ALT (SGPT) < 6 U/L (14-59)
[2018-01-05 07:00] VITALS: BP 118/48
[2018-01-05] MEDS: INSULIN LISPRO 300 UNITS/3 ML INSULN.PEN. SQ SCH ×6 (08:00→17:00)
[2018-01-05] MEDS: IV NORMAL SALINE 1000ML BAG 1,000 ML IV SCH (08:24)
[2018-01-05] MEDS: LISINOPRIL 20 MG TABLET PO SCH (08:31)
--- NOTE | 2018-01-05 08:49 | PDOC ---
VICKI WATKINS MAGNETIC RESONANCE IMAGING COORDINATOR 01/05/18 0849: SURGICAL PROGRESS NOTE Subjective no flatus pain managed no n/v Vital Signs Vital Signs Date Time Temp Pulse Resp B/P (MAP) Pulse Ox O2 Delivery O2 Flow Rate FiO2 01/05/18 08:31 79 117/52 01/05/18 03:00 97.5 16 93 Room Air 97.5 01/05/18 00:00 2.0 I&O Intake and Output 01/05/18 07:00 Intake Total 2220 ml Output Total 1050 ml Balance 1170 ml Intake Oral 170 ml IV Total 2050 ml Output Urine Total 1000 ml Estimated Blood Loss 50 ml PATIENT HAS A KENNEDY: Yes (dc pod 2) General: Alert, Oriented X3, Cooperative, No acute distress Abdomen: Soft, Other (dressing dry) Labs Laboratory Tests Test 01/03/18 18:15 01/03/18 23:02 01/04/18 05:48 01/04/18 06:30 White Blood Count 15.8 x10^3/uL (4.0-11.0) 18.8 x10^3/uL (4.0-11.0) Red Blood Count 4.70 x10^6/uL (3.50-5.40) 4.25 x10^6/uL (3.50-5.40) Hemoglobin 12.3 g/dL (12.0-15.5) 11.3 g/dL (12.0-15.5) Hematocrit 37.6 % (36.0-47.0) 34.3 % (36.0-47.0) Mean Corpuscular Volume 80 fL (79-100) 81 fL (79-100) Mean Corpuscular Hemoglobin 26 pg (25-35) 27 pg (25-35) Mean Corpuscular Hemoglobin Concent 33 g/dL (31-37) 33 g/dL (31-37) Red Cell Distribution Width 15.9 % (11.5-14.5) 15.9 % (11.5-14.5) Platelet Count 231 x10^3/uL (140-400) 209 x10^3/uL (140-400) Neutrophils (%) (Auto) 91 % (31-73) 89 % (31-73) Lymphocytes (%) (Auto) 4 % (24-48) 3 % (24-48) Monocytes (%) (Auto) 5 % (0-9) 8 % (0-9) Eosinophils (%) (Auto) 0 % (0-3) 0 % (0-3) Basophils (%) (Auto) 1 % (0-3) 0 % (0-3) Neutrophils # (Auto) 14.3 x10^3uL (1.8-7.7) 16.7 x10^3uL (1.8-7.7) Lymphocytes # (Auto) 0.5 x10^3/uL (1.0-4.8) 0.5 x10^3/uL (1.0-4.8) Monocytes # (Auto) 0.9 x10^3/uL (0.0-1.1) 1.5 x10^3/uL (0.0-1.1) Eosinophils # (Auto) 0.0 x10^3/uL (0.0-0.7) 0.0 x10^3/uL (0.0-0.7) Basophils # (Auto) 0.1 x10^3/uL (0.0-0.2) 0.0 x10^3/uL (0.0-0.2) Urine Collection Type Unknown Urine Color Yellow Urine Clarity Clear Urine pH 8.5 Urine Specific [place] 1.020 Urine Protein Negative mg/dL (NEG-TRACE) Urine Glucose (UA) Negative mg/dL (NEG) Urine Ketones (Stick) Trace mg/dL (NEG) Urine Blood Negative (NEG) Urine Nitrite Negative (NEG) Urine Bilirubin Negative (NEG) Urine Urobilinogen Dipstick 1.0 mg/dL (0.2 mg/dL) Urine Leukocyte Esterase Negative (NEG) Urine RBC 0 /HPF (0-2) Urine WBC Rare /HPF (0-4) Urine Squamous Epithelial Cells Few /LPF Urine Bacteria 0 /HPF (0-FEW) Urine Mucus Mod /LPF Sodium Level 139 mmol/L (136-145) 139 mmol/L (136-145) Potassium Level 3.9 mmol/L (3.5-5.1) 3.7 mmol/L (3.5-5.1) Chloride Level 102 mmol/L (98-107) 102 mmol/L (98-107) Carbon Dioxide Level 28 mmol/L (21-32) 29 mmol/L (21-32) Anion Gap 9 (6-14) 8 (6-14) Blood Urea Nitrogen 14 mg/dL (7-20) 15 mg/dL (7-20) Creatinine 0.6 mg/dL (0.6-1.0) 0.7 mg/dL (0.6-1.0) Estimated GFR (Cockcroft-Gault) 98.5 82.5 Glucose Level 188 mg/dL (70-99) 173 mg/dL (70-99) Lactic Acid Level 1.5 mmol/L (0.4-2.0) Calcium Level 9.8 mg/dL (8.5-10.1) 9.2 mg/dL (8.5-10.1) Total Bilirubin 0.5 mg/dL (0.2-1.0) Direct Bilirubin 0.1 mg/dL (0.0-0.2) Aspartate Amino Transf (AST/SGOT) 12 U/L (15-37) Alanine Aminotransferase (ALT/SGPT) 19 U/L (14-59) Alkaline Phosphatase 96 U/L (46-116) Troponin I Quantitative < 0.017 ng/mL (0.000-0.055) Total Protein 7.5 g/dL (6.4-8.2) Albumin 3.6 g/dL (3.4-5.0) Lipase 67 U/L (73-393) Glucose (Fingerstick) 162 mg/dL (70-99) 177 mg/dL (70-99) Segmented Neutrophils % 73 % (35-66) Band Neutrophils % 18 % (0-9) Lymphocytes % 3 % (24-48) Monocytes % 6 % (0-10) Platelet Estimate Adequate (ADEQUATE) Test 01/04/18 07:41 01/04/18 13:55 01/04/18 17:37 01/04/18 21:15 Glucose (Fingerstick) 159 mg/dL (70-99) 254 mg/dL (70-99) 228 mg/dL (70-99) 197 mg/dL (70-99) Test 01/05/18 01:43 01/05/18 04:15 Glucose (Fingerstick) 178 mg/dL (70-99) White Blood Count 16.4 x10^3/uL (4.0-11.0) Red Blood Count 3.74 x10^6/uL (3.50-5.40) Hemoglobin 10.0 g/dL (12.0-15.5) Hematocrit 30.0 % (36.0-47.0) Mean Corpuscular Volume 80 fL (79-100) Mean Corpuscular Hemoglobin 27 pg (25-35) Mean Corpuscular Hemoglobin Concent 33 g/dL (31-37) Red Cell Distribution Width 15.6 % (11.5-14.5) Platelet Count 188 x10^3/uL (140-400) Neutrophils (%) (Auto) 89 % (31-73) Lymphocytes (%) (Auto) 4 % (24-48) Monocytes (%) (Auto) 6 % (0-9) Eosinophils (%) (Auto) 0 % (0-3) Basophils (%) (Auto) 0 % (0-3) Neutrophils # (Auto) 14.7 x10^3uL (1.8-7.7) Lymphocytes # (Auto) 0.7 x10^3/uL (1.0-4.8) Monocytes # (Auto) 1.0 x10^3/uL (0.0-1.1) Eosinophils # (Auto) 0.0 x10^3/uL (0.0-0.7) Basophils # (Auto) 0.0 x10^3/uL (0.0-0.2) Sodium Level 135 mmol/L (136-145) Potassium Level 4.0 mmol/L (3.5-5.1) Chloride Level 100 mmol/L (98-107) Carbon Dioxide Level 27 mmol/L (21-32) Anion Gap 8 (6-14) Blood Urea Nitrogen 19 mg/dL (7-20) Creatinine 0.8 mg/dL (0.6-1.0) Estimated GFR (Cockcroft-Gault) 70.7 BUN/Creatinine Ratio 24 (6-20) Glucose Level 167 mg/dL (70-99) Calcium Level 8.1 mg/dL (8.5-10.1) Total Bilirubin 0.8 mg/dL (0.2-1.0) Aspartate Amino Transf (AST/SGOT) 14 U/L (15-37) Alanine Aminotransferase (ALT/SGPT) < 6 U/L (14-59) Alkaline Phosphatase 82 U/L (46-116) Total Protein 6.1 g/dL (6.4-8.2) Albumin 2.6 g/dL (3.4-5.0) Albumin/Globulin Ratio 0.7 (1.0-1.7) Laboratory Tests Test 01/04/18 13:55 01/04/18 17:37 01/04/18 21:15 01/05/18 01:43 Glucose (Fingerstick) 254 mg/dL (70-99) 228 mg/dL (70-99) 197 mg/dL (70-99) 178 mg/dL (70-99) Test 01/05/18 04:15 White Blood Count 16.4 x10^3/uL (4.0-11.0) Red Blood Count 3.74 x10^6/uL (3.50-5.40) Hemoglobin 10.0 g/dL (12.0-15.5) Hematocrit 30.0 % (36.0-47.0) Mean Corpuscular Volume 80 fL (79-100) Mean Corpuscular Hemoglobin 27 pg (25-35) Mean Corpuscular Hemoglobin Concent 33 g/dL (31-37) Red Cell Distribution Width 15.6 % (11.5-14.5) Platelet Count 188 x10^3/uL (140-400) Neutrophils (%) (Auto) 89 % (31-73) Lymphocytes (%) (Auto) 4 % (24-48) Monocytes (%) (Auto) 6 % (0-9) Eosinophils (%) (Auto) 0 % (0-3) Basophils (%) (Auto) 0 % (0-3) Neutrophils # (Auto) 14.7 x10^3uL (1.8-7.7) Lymphocytes # (Auto) 0.7 x10^3/uL (1.0-4.8) Monocytes # (Auto) 1.0 x10^3/uL (0.0-1.1) Eosinophils # (Auto) 0.0 x10^3/uL (0.0-0.7) Basophils # (Auto) 0.0 x10^3/uL (0.0-0.2) Sodium Level 135 mmol/L (136-145) Potassium Level 4.0 mmol/L (3.5-5.1) Chloride Level 100 mmol/L (98-107) Carbon Dioxide Level 27 mmol/L (21-32) Anion Gap 8 (6-14) Blood Urea Nitrogen 19 mg/dL (7-20) Creatinine 0.8 mg/dL (0.6-1.0) Estimated GFR (Cockcroft-Gault) 70.7 BUN/Creatinine Ratio 24 (6-20) Glucose Level 167 mg/dL (70-99) Calcium Level 8.1 mg/dL (8.5-10.1) Total Bilirubin 0.8 mg/dL (0.2-1.0) Aspartate Amino Transf (AST/SGOT) 14 U/L (15-37) Alanine Aminotransferase (ALT/SGPT) < 6 U/L (14-59) Alkaline Phosphatase 82 U/L (46-116) Total Protein 6.1 g/dL (6.4-8.2) Albumin 2.6 g/dL (3.4-5.0) Albumin/Globulin Ratio 0.7 (1.0-1.7) Assessment/Plan s/p open appy increase activity eric kennedy in AM await bowel function CAITLIN STEVE MD 01/06/18 0838: SURGICAL PROGRESS NOTE Assessment/Plan Agree with above VICKI WATKINS APRN Jan 05, 2018 08:49 CAITLIN STEVE MD Jan 06, 2018 08:38
[2018-01-05] MEDS ORDERED: CELECOXIB 100 MG CAPSULE. PO SCH (09:00)
[2018-01-05 11:00] VITALS: BP 118/62
--- NOTE | 2018-01-05 12:44 | PDOC ---
PROGRESS NOTES Subjective Subjective Patient doing well POD #1. Starting to pass gas Objective Objective Vital Signs Date Time Temp Pulse Resp B/P (MAP) Pulse Ox O2 Delivery O2 Flow Rate FiO2 01/05/18 08:31 79 117/52 01/05/18 08:00 Nasal Cannula 2.0 01/05/18 07:00 98.2 16 93 98.2 Intake and Output 01/05/18 07:00 Intake Total 2220 ml Output Total 1050 ml Balance 1170 ml Intake Oral 170 ml IV Total 2050 ml Output Urine Total 1000 ml Estimated Blood Loss 50 ml Physical Exam Abdomen: Other (+BS) Heart: Regular rate Extremities: No edema General: Alert Lungs: Clear to auscultation Assessment Assessment 1. Acute appendicitis 2. Type 2 diabetes 3. HTN Plan Plan of Care Continue post op care Advance diet per Surgery increase activity Home when stable Comment Review of Relevant I have reviewed the following items jorgito (where applicable) has been applied. Labs Laboratory Tests Test 01/03/18 18:15 01/03/18 23:02 01/04/18 05:48 01/04/18 06:30 White Blood Count 15.8 x10^3/uL (4.0-11.0) 18.8 x10^3/uL (4.0-11.0) Red Blood Count 4.70 x10^6/uL (3.50-5.40) 4.25 x10^6/uL (3.50-5.40) Hemoglobin 12.3 g/dL (12.0-15.5) 11.3 g/dL (12.0-15.5) Hematocrit 37.6 % (36.0-47.0) 34.3 % (36.0-47.0) Mean Corpuscular Volume 80 fL (79-100) 81 fL (79-100) Mean Corpuscular Hemoglobin 26 pg (25-35) 27 pg (25-35) Mean Corpuscular Hemoglobin Concent 33 g/dL (31-37) 33 g/dL (31-37) Red Cell Distribution Width 15.9 % (11.5-14.5) 15.9 % (11.5-14.5) Platelet Count 231 x10^3/uL (140-400) 209 x10^3/uL (140-400) Neutrophils (%) (Auto) 91 % (31-73) 89 % (31-73) Lymphocytes (%) (Auto) 4 % (24-48) 3 % (24-48) Monocytes (%) (Auto) 5 % (0-9) 8 % (0-9) Eosinophils (%) (Auto) 0 % (0-3) 0 % (0-3) Basophils (%) (Auto) 1 % (0-3) 0 % (0-3) Neutrophils # (Auto) 14.3 x10^3uL (1.8-7.7) 16.7 x10^3uL (1.8-7.7) Lymphocytes # (Auto) 0.5 x10^3/uL (1.0-4.8) 0.5 x10^3/uL (1.0-4.8) Monocytes # (Auto) 0.9 x10^3/uL (0.0-1.1) 1.5 x10^3/uL (0.0-1.1) Eosinophils # (Auto) 0.0 x10^3/uL (0.0-0.7) 0.0 x10^3/uL (0.0-0.7) Basophils # (Auto) 0.1 x10^3/uL (0.0-0.2) 0.0 x10^3/uL (0.0-0.2) Urine Collection Type Unknown Urine Color Yellow Urine Clarity Clear Urine pH 8.5 Urine Specific [place] 1.020 Urine Protein Negative mg/dL (NEG-TRACE) Urine Glucose (UA) Negative mg/dL (NEG) Urine Ketones (Stick) Trace mg/dL (NEG) Urine Blood Negative (NEG) Urine Nitrite Negative (NEG) Urine Bilirubin Negative (NEG) Urine Urobilinogen Dipstick 1.0 mg/dL (0.2 mg/dL) Urine Leukocyte Esterase Negative (NEG) Urine RBC 0 /HPF (0-2) Urine WBC Rare /HPF (0-4) Urine Squamous Epithelial Cells Few /LPF Urine Bacteria 0 /HPF (0-FEW) Urine Mucus Mod /LPF Sodium Level 139 mmol/L (136-145) 139 mmol/L (136-145) Potassium Level 3.9 mmol/L (3.5-5.1) 3.7 mmol/L (3.5-5.1) Chloride Level 102 mmol/L (98-107) 102 mmol/L (98-107) Carbon Dioxide Level 28 mmol/L (21-32) 29 mmol/L (21-32) Anion Gap 9 (6-14) 8 (6-14) Blood Urea Nitrogen 14 mg/dL (7-20) 15 mg/dL (7-20) Creatinine 0.6 mg/dL (0.6-1.0) 0.7 mg/dL (0.6-1.0) Estimated GFR (Cockcroft-Gault) 98.5 82.5 Glucose Level 188 mg/dL (70-99) 173 mg/dL (70-99) Lactic Acid Level 1.5 mmol/L (0.4-2.0) Calcium Level 9.8 mg/dL (8.5-10.1) 9.2 mg/dL (8.5-10.1) Total Bilirubin 0.5 mg/dL (0.2-1.0) Direct Bilirubin 0.1 mg/dL (0.0-0.2) Aspartate Amino Transf (AST/SGOT) 12 U/L (15-37) Alanine Aminotransferase (ALT/SGPT) 19 U/L (14-59) Alkaline Phosphatase 96 U/L (46-116) Troponin I Quantitative < 0.017 ng/mL (0.000-0.055) Total Protein 7.5 g/dL (6.4-8.2) Albumin 3.6 g/dL (3.4-5.0) Lipase 67 U/L (73-393) Glucose (Fingerstick) 162 mg/dL (70-99) 177 mg/dL (70-99) Segmented Neutrophils % 73 % (35-66) Band Neutrophils % 18 % (0-9) Lymphocytes % 3 % (24-48) Monocytes % 6 % (0-10) Platelet Estimate Adequate (ADEQUATE) Test 01/04/18 07:41 01/04/18 13:55 01/04/18 17:37 01/04/18 21:15 Glucose (Fingerstick) 159 mg/dL (70-99) 254 mg/dL (70-99) 228 mg/dL (70-99) 197 mg/dL (70-99) Test 01/05/18 01:43 01/05/18 04:15 Glucose (Fingerstick) 178 mg/dL (70-99) White Blood Count 16.4 x10^3/uL (4.0-11.0) Red Blood Count 3.74 x10^6/uL (3.50-5.40) Hemoglobin 10.0 g/dL (12.0-15.5) Hematocrit 30.0 % (36.0-47.0) Mean Corpuscular Volume 80 fL (79-100) Mean Corpuscular Hemoglobin 27 pg (25-35) Mean Corpuscular Hemoglobin Concent 33 g/dL (31-37) Red Cell Distribution Width 15.6 % (11.5-14.5) Platelet Count 188 x10^3/uL (140-400) Neutrophils (%) (Auto) 89 % (31-73) Lymphocytes (%) (Auto) 4 % (24-48) Monocytes (%) (Auto) 6 % (0-9) Eosinophils (%) (Auto) 0 % (0-3) Basophils (%) (Auto) 0 % (0-3) Neutrophils # (Auto) 14.7 x10^3uL (1.8-7.7) Lymphocytes # (Auto) 0.7 x10^3/uL (1.0-4.8) Monocytes # (Auto) 1.0 x10^3/uL (0.0-1.1) Eosinophils # (Auto) 0.0 x10^3/uL (0.0-0.7) Basophils # (Auto) 0.0 x10^3/uL (0.0-0.2) Sodium Level 135 mmol/L (136-145) Potassium Level 4.0 mmol/L (3.5-5.1) Chloride Level 100 mmol/L (98-107) Carbon Dioxide Level 27 mmol/L (21-32) Anion Gap 8 (6-14) Blood Urea Nitrogen 19 mg/dL (7-20) Creatinine 0.8 mg/dL (0.6-1.0) Estimated GFR (Cockcroft-Gault) 70.7 BUN/Creatinine Ratio 24 (6-20) Glucose Level 167 mg/dL (70-99) Calcium Level 8.1 mg/dL (8.5-10.1) Total Bilirubin 0.8 mg/dL (0.2-1.0) Aspartate Amino Transf (AST/SGOT) 14 U/L (15-37) Alanine Aminotransferase (ALT/SGPT) < 6 U/L (14-59) Alkaline Phosphatase 82 U/L (46-116) Total Protein 6.1 g/dL (6.4-8.2) Albumin 2.6 g/dL (3.4-5.0) Albumin/Globulin Ratio 0.7 (1.0-1.7) Laboratory Tests Test 01/04/18 13:55 01/04/18 17:37 01/04/18 21:15 01/05/18 01:43 Glucose (Fingerstick) 254 mg/dL (70-99) 228 mg/dL (70-99) 197 mg/dL (70-99) 178 mg/dL (70-99) Test 01/05/18 04:15 White Blood Count 16.4 x10^3/uL (4.0-11.0) Red Blood Count 3.74 x10^6/uL (3.50-5.40) Hemoglobin 10.0 g/dL (12.0-15.5) Hematocrit 30.0 % (36.0-47.0) Mean Corpuscular Volume 80 fL (79-100) Mean Corpuscular Hemoglobin 27 pg (25-35) Mean Corpuscular Hemoglobin Concent 33 g/dL (31-37) Red Cell Distribution Width 15.6 % (11.5-14.5) Platelet Count 188 x10^3/uL (140-400) Neutrophils (%) (Auto) 89 % (31-73) Lymphocytes (%) (Auto) 4 % (24-48) Monocytes (%) (Auto) 6 % (0-9) Eosinophils (%) (Auto) 0 % (0-3) Basophils (%) (Auto) 0 % (0-3) Neutrophils # (Auto) 14.7 x10^3uL (1.8-7.7) Lymphocytes # (Auto) 0.7 x10^3/uL (1.0-4.8) Monocytes # (Auto) 1.0 x10^3/uL (0.0-1.1) Eosinophils # (Auto) 0.0 x10^3/uL (0.0-0.7) Basophils # (Auto) 0.0 x10^3/uL (0.0-0.2) Sodium Level 135 mmol/L (136-145) Potassium Level 4.0 mmol/L (3.5-5.1) Chloride Level 100 mmol/L (98-107) Carbon Dioxide Level 27 mmol/L (21-32) Anion Gap 8 (6-14) Blood Urea Nitrogen 19 mg/dL (7-20) Creatinine 0.8 mg/dL (0.6-1.0) Estimated GFR (Cockcroft-Gault) 70.7 BUN/Creatinine Ratio 24 (6-20) Glucose Level 167 mg/dL (70-99) Calcium Level 8.1 mg/dL (8.5-10.1) Total Bilirubin 0.8 mg/dL (0.2-1.0) Aspartate Amino Transf (AST/SGOT) 14 U/L (15-37) Alanine Aminotransferase (ALT/SGPT) < 6 U/L (14-59) Alkaline Phosphatase 82 U/L (46-116) Total Protein 6.1 g/dL (6.4-8.2) Albumin 2.6 g/dL (3.4-5.0) Albumin/Globulin Ratio 0.7 (1.0-1.7) Medications Current Medications Iohexol (Omnipaque 300 Mg/ml) 75 ml 1X ONCE IV Last administered on 01/03/18at 18:15; Start 01/03/18 at 18:15; Stop 01/03/18 at 18:16; Status DC Info (CONTRAST GIVEN -- Rx MONITORING) 1 each PRN DAILY PRN MC SEE COMMENTS; Start 01/03/18 at 18:15; Stop 01/05/18 at 18:14 Morphine Sulfate (Morphine Sulfate) 4 mg 1X ONCE IV Last administered on at 18:46; Start 01/03/18 at 18:15; Stop 01/03/18 at 18:18; Status DC Ondansetron HCl (Zofran) 4 mg 1X ONCE IV Last administered on 01/03/18at 18:44 ; Start 01/03/18 at 18:15; Stop 01/03/18 at 18:18; Status DC Ondansetron HCl (Zofran) 4 mg PRN Q8HRS PRN IV NAUSEA/VOMITING Last administered on 01/03/18at 21:28; Start 01/03/18 at 20:00; Stop 01/04/18 at 19:59 ; Status DC Morphine Sulfate (Morphine Sulfate) 4 mg PRN Q2HR PRN IV PAIN Last administered on 01/04/18at 00:53; Start 01/03/18 at 20:00; Stop 01/04/18 at 16:41 ; Status DC Ringer's Solution 1,000 ml @ 75 mls/hr 1X ONCE IV Last administered on at 21:48; Start 01/03/18 at 20:00; Stop 01/04/18 at 09:19; Status DC Cefazolin Sodium/ Dextrose 50 ml @ 100 mls/hr 1X ONCE IV Last administered on 01/03/18at 20:35; Start 01/03/18 at 20:00; Stop 01/03/18 at 20:29; Status DC Metronidazole 100 ml @ 100 mls/hr 1X ONCE IV Last administered on 01/03/18at 21:48; Start 01/03/18 at 20:00; Stop 01/03/18 at 20:59; Status DC Propofol 20 ml @ As Directed STK-MED ONCE IV ; Start 01/04/18 at 09:04; Stop at 09:05; Status DC Succinylcholine Chloride (Anectine) 200 mg STK-MED ONCE .ROUTE ; Start 01/04/18 at 09:04; Stop 01/04/18 at 09:05; Status DC Rocuronium [place] (Zemuron) 50 mg STK-MED ONCE .ROUTE ; Start 01/04/18 at 09:04 ; Stop 01/04/18 at 09:05; Status DC Fentanyl Citrate (Fentanyl 2ml Vial) 100 mcg STK-MED ONCE .ROUTE ; Start at 09:04; Stop 01/04/18 at 09:05; Status DC Piperacillin Sod/ Tazobactam Sod 3.375 gm/Sodium Chloride 50 ml @ 100 mls/hr 1X ONCE IV Last administered on 01/04/18at 11:01; Start 01/04/18 at 09:45; Stop 01/04/18 at 10:14; Status DC Bupivacaine HCl/ Epinephrine Bitart (Marcaine-Epi 0.5%-[id number]) 50 ml STK-MED ONCE .ROUTE Last administered on 01/04/18at 13:34; Start 01/04/18 at 09:27; Stop 01/04/18 at 10:28; Status DC Dexamethasone Sodium Phosphate (Decadron) 20 mg STK-MED ONCE .ROUTE ; Start at 10:52; Stop 01/04/18 at 10:53; Status DC Ondansetron HCl (Zofran) 4 mg STK-MED ONCE .ROUTE ; Start 01/04/18 at 10:52; Stop 01/04/18 at 10:53; Status DC Desflurane (Suprane) 30 ml STK-MED ONCE IH ; Start 01/04/18 at 10:52; Stop 01/04 at 10:53; Status DC Ondansetron HCl (Zofran) 4 mg PRN Q6HRS PRN IV NAUSEA/VOMITING; Start 01/04/18 at 11:00; Stop 01/05/18 at 10:59; Status DC Fentanyl Citrate (Fentanyl 2ml Vial) 25 mcg PRN Q5MIN PRN IV MILD PAIN; Start 01/04/18 at 11:00; Stop 01/05/18 at 10:59; Status DC Fentanyl Citrate (Fentanyl 2ml Vial) 50 mcg PRN Q5MIN PRN IV MODERATE TO SEVERE PAIN Last administered on 01/04/18at 14:13; Start 01/04/18 at 11:00; Stop 01/05/18 at 10:59; Status DC Morphine Sulfate (Morphine Sulfate) 1 mg PRN Q10MIN PRN IV SEVERE PAIN; Start 01/04/18 at 11:00; Stop 01/04/18 at 16:41; Status DC Ringer's Solution 1,000 ml @ 30 mls/hr Q24H IV ; Start 01/04/18 at 10:57; Stop 01/04/18 at 22:56; Status DC Lidocaine HCl (Xylocaine-Mpf 1% 2ml Vial) 2 ml 1X PRN PRN ID IV START; Start at 11:00; Stop 01/05/18 at 10:59; Status DC Hydromorphone HCl (Dilaudid) 0.5 mg PRN Q10MIN PRN IV SEV PAIN, Second choice; Start 01/04/18 at 11:00; Stop 01/05/18 at 10:59; Status DC Prochlorperazine Edisylate (Compazine) 5 mg PACU PRN PRN IV NAUSEA, MRX1; Start 01/04/18 at 11:00; Stop 01/05/18 at 10:59; Status DC Glycopyrrolate (Robinul) 1 mg STK-MED ONCE .ROUTE ; Start 01/04/18 at 11:05; Stop 01/04/18 at 11:06; Status DC Neostigmine Methylsulfate (Neostigmine Methylsulfate) 5 mg STK-MED ONCE .ROUTE ; Start 01/04/18 at 11:05; Stop 01/04/18 at 11:06; Status DC Phenylephrine HCl (PHENYLEPHRINE in 0.9% NACL PF) 1 mg STK-MED ONCE IV ; Start 01/04/18 at 11:09; Stop 01/04/18 at 11:10; Status DC Atorvastatin Calcium (Lipitor) 20 mg QHS PO Last administered on 01/04/18at 20: 35; Start 01/04/18 at 21:00 Insulin Glargine (Lantus) 40 units QHS SQ Last administered on 01/04/18at 21:42 ; Start 01/04/18 at 21:00 Lisinopril (Prinivil) 20 mg DAILY PO Last administered on 01/05/18at 08:31; Start 01/04/18 at 12:00 Insulin Human Lispro (HumaLOG) 15 units TIDWMEALS SQ ; Start 01/04/18 at 12:00 Metformin HCl (Glucophage) 1,000 mg BIDWMEALS PO ; Start 01/06/18 at 08:00 Sodium Chloride 1,000 ml @ 100 mls/hr Q10H IV ; Start 01/04/18 at 11:29; Stop 01/04/18 at 21:28; Status DC Fentanyl Citrate (Fentanyl 2ml Vial) 100 mcg STK-MED ONCE .ROUTE ; Start at 12:43; Stop 01/04/18 at 12:44; Status DC Morphine Sulfate 30 ml @ 0 mls/hr CONT PRN PRN IV PER PROTOCOL Last administered on 01/04/18at 14:23; Start 01/04/18 at 13:30 Piperacillin Sod/ Tazobactam Sod 3.375 gm/Sodium Chloride 50 ml @ 100 mls/hr Q6HRS IV Last administered on 01/05/18at 12:25; Start 01/04/18 at 18:00 Enoxaparin Sodium (Lovenox 40mg Syringe) 40 mg Q24H SQ ; Start 01/04/18 at 14:00 Insulin Human Lispro (HumaLOG VIAL) 8 unit 1X ONCE SQ Last administered on at 14:06; Start 01/04/18 at 14:00; Stop 01/04/18 at 14:02; Status DC Fentanyl Citrate (Fentanyl 2ml Vial) 100 mcg STK-MED ONCE .ROUTE ; Start at 14:02; Stop 01/04/18 at 14:03; Status DC Morphine Sulfate 30 ml @ As Directed STK-MED ONCE IV ; Start 01/04/18 at 14:03; Stop 01/04/18 at 14:04; Status DC Insulin Human Lispro (HumaLOG) 0-9 UNITS TIDWMEALS SQ Last administered on 01/04at 18:12; Start 01/04/18 at 18:30 Dextrose (Dextrose 50%-Water Syringe) 12.5 gm PRN Q15MIN PRN IV SEE COMMENTS; Start 01/04/18 at 18:00 Diphenhydramine HCl (Benadryl) 25 mg PRN Q6HRS PRN PO ITCHING Last administered on 01/04/18at 20:35; Start 01/04/18 at 20:00 Celecoxib (CeleBREX) 200 mg BID PO ; Start 01/05/18 at 09:00; Status UNV Sodium Chloride 1,000 ml @ 25 mls/hr Q24H IV Last administered on 01/05/18at 08 :24; Start 01/05/18 at 07:45 Active Scripts Active Reported Celebrex (Celecoxib) 200 Mg Capsule 200 Mg PO BID 30 Days Atorvastatin Calcium 20 Mg Tablet 1 Tab PO DAILY Lisinopril 20 Mg Tablet 1 Tab PO DAILY Metformin Hcl 1,000 Mg Tablet 1,000 Mg PO BID Novolog (Insulin Aspart) 100 Unit/1 Ml Cartridge 15 Unit SQ TIDWMEALS Lantus Solostar (Insulin Glargine,Hum.rec.anlog) 100 Unit/1 Ml Insuln.pen 40 Unit SQ QHS Vitals/I & O Vital Sign - Last 24 Hours 01/04/18 01/04/18 01/04/18 01/04/18 13:48 13:48 14:03 14:13 Temp 99.6 99.6 Pulse 96 98 Resp 10 16 15 B/P (MAP) 155/53 110/54 Pulse Ox 100 92 92 O2 Delivery Mask Simple Mask Nasal Cannula Nasal Cannula O2 Flow Rate 10 10 3 3.0 01/04/18 01/04/1818 01/04/18 14:18 14:23 14:33 14:48 Pulse 96 96 98 Resp 14 20 10 18 B/P (MAP) 141/55 140/52 142/52 Pulse Ox 94 91 96 97 O2 Delivery Nasal Cannula Nasal Cannula Nasal Cannula Nasal Cannula O2 Flow Rate 4 2.0 4 4 01/04/18 01/04/18 01/04/18 01/04/18 15:03 15:18 15:45 16:00 Temp 98.2 97.5 97.9 98.2 97.5 97.9 Pulse 94 94 90 89 Resp 16 16 16 16 B/P (MAP) 139/48 125/46 127/48 (74) 122/45 (70) Pulse Ox 94 94 91 92 O2 Delivery Nasal Cannula Nasal Cannula Room Air Room Air O2 Flow Rate 2 2 01/04/18 01/04/18 01/04/18 01/04/18 16:15 16:30 16:45 17:15 Temp 97.9 98.0 97.9 98.1 97.9 98.0 97.9 98.1 Pulse 89 87 88 89 Resp 16 16 16 16 B/P (MAP) 123/46 (71) 118/50 (72) 128/49 (75) 108/52 (70) Pulse Ox 92 91 92 93 O2 Delivery Room Air Room Air Room Air Room Air 01/04/18 01/04/18 01/04/18 01/04/18 17:45 19:00 20:00 20:00 Temp 97.9 97.7 97.9 97.7 Pulse 90 95 Resp 16 16 11 B/P (MAP) 120/51 (74) 113/53 (73) Pulse Ox 92 91 93 O2 Delivery Room Air Room Air Nasal Cannula Mask O2 Flow Rate 2.0 2.0 01/04/1818 01/05/18 01/05/18 23:30 00:00 03:00 07:00 Temp 98.5 97.5 98.2 98.5 97.5 98.2 Pulse 89 85 80 Resp 16 8 16 16 B/P (MAP) 128/65 (86) 102/34 (56) 118/48 (71) Pulse Ox 90 90 93 93 O2 Delivery Room Air Nasal Cannula Room Air Room Air O2 Flow Rate 2.0 01/05/18 01/05/18 08:00 08:31 Pulse 79 B/P (MAP) 117/52 O2 Delivery Nasal Cannula O2 Flow Rate 2.0 Intake and Output 01/04/18 01/04/18 01/05/18 15:00 23:00 07:00 Intake Total 2050 ml 170 ml Output Total 300 ml 300 ml 450 ml Balance 1750 ml -130 ml -450 ml ELLIOTT DRAKE MD Jan 05, 2018 12:44
[2018-01-05] MEDS: ENOXAPARIN 40 MG/0.4 ML SYRINGE. SQ SCH (14:00)
[2018-01-05] MEDS: ONDANSETRON PF 4 MG/2 ML VIAL. IV PRN ×2 (14:56→20:15)
[2018-01-05 15:00] VITALS: BP 117/42
[2018-01-05] MEDS ORDERED: PROCHLORPERAZINE 10 MG/2 ML VIAL. IM PRN (18:30)
[2018-01-05] MEDS ORDERED: PROCHLORPERAZINE 10 MG/2 ML VIAL. IV PRN (18:30)
[2018-01-05 19:25] VITALS: BP 102/50
[2018-01-05] MEDS: ATORVASTATIN CALCIUM 20 MG TABLET PO SCH (20:14)
[2018-01-05] MEDS: CELECOXIB 100 MG CAPSULE. PO SCH (20:14)
[2018-01-05] MEDS: INSULIN GLARGINE 300 UNITS/3 ML INSULN.PEN. SQ SCH (21:17)
[2018-01-05 23:16] VITALS: BP 115/53
[2018-01-06] MEDS: PIPERACILLIN/TAZOBACTAM 3.375 GM in IV NORMAL SALINE 50ML 50 ML IV SCH ×5 (00:55→23:55)
[2018-01-06 03:20] VITALS: BP 115/50
[2018-01-06 07:00] VITALS: BP 120/52
[2018-01-06] MEDS: IV NORMAL SALINE 1000ML BAG 1,000 ML IV SCH (07:45)
[2018-01-06] MEDS: INSULIN LISPRO 300 UNITS/3 ML INSULN.PEN. SQ SCH ×6 (08:00→17:00)
--- NOTE | 2018-01-06 08:20 | PDOC ---
VICKI WATKINS LADLE FILLER 01/06/18 0820: SURGICAL PROGRESS NOTE Subjective pain managed + flatus no nausea Vital Signs Vital Signs Date Time Temp Pulse Resp B/P (MAP) Pulse Ox O2 Delivery O2 Flow Rate FiO2 01/06/18 03:20 97.4 85 16 115/50 (71) 94 Room Air 97.4 01/05/18 23:16 2.0 I&O Intake and Output 01/06/18 07:00 Intake Total 1880.22 ml Output Total 3000 ml Balance -1119.78 ml Intake Oral 50 ml IV Total 1830.22 ml Output Urine Total 3000 ml General: Alert, Oriented X3, Cooperative, No acute distress Abdomen: Soft, Other (incision c/d/i, no erythema, ND) Labs Laboratory Tests Test 01/04/18 13:55 01/04/18 17:37 01/04/18 21:15 01/05/18 01:43 Glucose (Fingerstick) 254 mg/dL (70-99) 228 mg/dL (70-99) 197 mg/dL (70-99) 178 mg/dL (70-99) Test 01/05/18 04:15 01/05/18 08:15 01/05/18 12:15 01/05/18 17:20 White Blood Count 16.4 x10^3/uL (4.0-11.0) Red Blood Count 3.74 x10^6/uL (3.50-5.40) Hemoglobin 10.0 g/dL (12.0-15.5) Hematocrit 30.0 % (36.0-47.0) Mean Corpuscular Volume 80 fL (79-100) Mean Corpuscular Hemoglobin 27 pg (25-35) Mean Corpuscular Hemoglobin Concent 33 g/dL (31-37) Red Cell Distribution Width 15.6 % (11.5-14.5) Platelet Count 188 x10^3/uL (140-400) Neutrophils (%) (Auto) 89 % (31-73) Lymphocytes (%) (Auto) 4 % (24-48) Monocytes (%) (Auto) 6 % (0-9) Eosinophils (%) (Auto) 0 % (0-3) Basophils (%) (Auto) 0 % (0-3) Neutrophils # (Auto) 14.7 x10^3uL (1.8-7.7) Lymphocytes # (Auto) 0.7 x10^3/uL (1.0-4.8) Monocytes # (Auto) 1.0 x10^3/uL (0.0-1.1) Eosinophils # (Auto) 0.0 x10^3/uL (0.0-0.7) Basophils # (Auto) 0.0 x10^3/uL (0.0-0.2) Sodium Level 135 mmol/L (136-145) Potassium Level 4.0 mmol/L (3.5-5.1) Chloride Level 100 mmol/L (98-107) Carbon Dioxide Level 27 mmol/L (21-32) Anion Gap 8 (6-14) Blood Urea Nitrogen 19 mg/dL (7-20) Creatinine 0.8 mg/dL (0.6-1.0) Estimated GFR (Cockcroft-Gault) 70.7 BUN/Creatinine Ratio 24 (6-20) Glucose Level 167 mg/dL (70-99) Calcium Level 8.1 mg/dL (8.5-10.1) Total Bilirubin 0.8 mg/dL (0.2-1.0) Aspartate Amino Transf (AST/SGOT) 14 U/L (15-37) Alanine Aminotransferase (ALT/SGPT) < 6 U/L (14-59) Alkaline Phosphatase 82 U/L (46-116) Total Protein 6.1 g/dL (6.4-8.2) Albumin 2.6 g/dL (3.4-5.0) Albumin/Globulin Ratio 0.7 (1.0-1.7) Glucose (Fingerstick) 164 mg/dL (70-99) 149 mg/dL (70-99) 139 mg/dL (70-99) Test 01/05/18 20:50 Glucose (Fingerstick) 144 mg/dL (70-99) Laboratory Tests Test 01/05/18 12:15 01/05/18 17:20 01/05/18 20:50 Glucose (Fingerstick) 149 mg/dL (70-99) 139 mg/dL (70-99) 144 mg/dL (70-99) Assessment/Plan s/p open appy start diet ambulate CAITLIN STEVE MD 01/06/18 0839: SURGICAL PROGRESS NOTE Assessment/Plan Agree with above VICKI WATKINS APRN Jan 06, 2018 08:20 CAITLIN STEVE MD Jan 06, 2018 08:39
[2018-01-06] MEDS: CELECOXIB 100 MG CAPSULE. PO SCH ×2 (08:27→21:21)
[2018-01-06] MEDS: LISINOPRIL 20 MG TABLET PO SCH (08:28)
--- NOTE | 2018-01-06 08:33 | PDOC ---
PROGRESS NOTES Subjective Subjective Patient feeling better. Passing gas Objective Objective Vital Signs Date Time Temp Pulse Resp B/P (MAP) Pulse Ox O2 Delivery O2 Flow Rate FiO2 01/06/18 08:28 79 120/52 01/06/18 03:20 97.4 16 94 Room Air 97.4 01/05/18 23:16 2.0 Intake and Output 01/06/18 07:00 Intake Total 1880.22 ml Output Total 3000 ml Balance -1119.78 ml Intake Oral 50 ml IV Total 1830.22 ml Output Urine Total 3000 ml Physical Exam Abdomen: Normal bowel sounds Heart: Regular rate Extremities: No edema General: Alert Lungs: Clear to auscultation Assessment Assessment 1. Acute appendicitis s/p open appendectomy POD # 2 2. Type 2 diabetes 3. HTN Plan Plan of Care Continue post op care Advance diet per Surgery increase activity Home when stable Comment Review of Relevant I have reviewed the following items jorgito (where applicable) has been applied. Labs Laboratory Tests Test 01/04/18 13:55 01/04/18 17:37 01/04/18 21:15 01/05/18 01:43 Glucose (Fingerstick) 254 mg/dL (70-99) 228 mg/dL (70-99) 197 mg/dL (70-99) 178 mg/dL (70-99) Test 01/05/18 04:15 01/05/18 08:15 01/05/18 12:15 01/05/18 17:20 White Blood Count 16.4 x10^3/uL (4.0-11.0) Red Blood Count 3.74 x10^6/uL (3.50-5.40) Hemoglobin 10.0 g/dL (12.0-15.5) Hematocrit 30.0 % (36.0-47.0) Mean Corpuscular Volume 80 fL (79-100) Mean Corpuscular Hemoglobin 27 pg (25-35) Mean Corpuscular Hemoglobin Concent 33 g/dL (31-37) Red Cell Distribution Width 15.6 % (11.5-14.5) Platelet Count 188 x10^3/uL (140-400) Neutrophils (%) (Auto) 89 % (31-73) Lymphocytes (%) (Auto) 4 % (24-48) Monocytes (%) (Auto) 6 % (0-9) Eosinophils (%) (Auto) 0 % (0-3) Basophils (%) (Auto) 0 % (0-3) Neutrophils # (Auto) 14.7 x10^3uL (1.8-7.7) Lymphocytes # (Auto) 0.7 x10^3/uL (1.0-4.8) Monocytes # (Auto) 1.0 x10^3/uL (0.0-1.1) Eosinophils # (Auto) 0.0 x10^3/uL (0.0-0.7) Basophils # (Auto) 0.0 x10^3/uL (0.0-0.2) Sodium Level 135 mmol/L (136-145) Potassium Level 4.0 mmol/L (3.5-5.1) Chloride Level 100 mmol/L (98-107) Carbon Dioxide Level 27 mmol/L (21-32) Anion Gap 8 (6-14) Blood Urea Nitrogen 19 mg/dL (7-20) Creatinine 0.8 mg/dL (0.6-1.0) Estimated GFR (Cockcroft-Gault) 70.7 BUN/Creatinine Ratio 24 (6-20) Glucose Level 167 mg/dL (70-99) Calcium Level 8.1 mg/dL (8.5-10.1) Total Bilirubin 0.8 mg/dL (0.2-1.0) Aspartate Amino Transf (AST/SGOT) 14 U/L (15-37) Alanine Aminotransferase (ALT/SGPT) < 6 U/L (14-59) Alkaline Phosphatase 82 U/L (46-116) Total Protein 6.1 g/dL (6.4-8.2) Albumin 2.6 g/dL (3.4-5.0) Albumin/Globulin Ratio 0.7 (1.0-1.7) Glucose (Fingerstick) 164 mg/dL (70-99) 149 mg/dL (70-99) 139 mg/dL (70-99) Test 01/05/18 20:50 Glucose (Fingerstick) 144 mg/dL (70-99) Laboratory Tests Test 01/05/18 12:15 01/05/18 17:20 01/05/18 20:50 Glucose (Fingerstick) 149 mg/dL (70-99) 139 mg/dL (70-99) 144 mg/dL (70-99) Medications Current Medications Iohexol (Omnipaque 300 Mg/ml) 75 ml 1X ONCE IV Last administered on 01/03/18at 18:15; Start 01/03/18 at 18:15; Stop 01/03/18 at 18:16; Status DC Info (CONTRAST GIVEN -- Rx MONITORING) 1 each PRN DAILY PRN MC SEE COMMENTS; Start 01/03/18 at 18:15; Stop 01/05/18 at 18:14; Status DC Morphine Sulfate (Morphine Sulfate) 4 mg 1X ONCE IV Last administered on at 18:46; Start 01/03/18 at 18:15; Stop 01/03/18 at 18:18; Status DC Ondansetron HCl (Zofran) 4 mg 1X ONCE IV Last administered on 01/03/18at 18:44 ; Start 01/03/18 at 18:15; Stop 01/03/18 at 18:18; Status DC Ondansetron HCl (Zofran) 4 mg PRN Q8HRS PRN IV NAUSEA/VOMITING Last administered on 01/03/18at 21:28; Start 01/03/18 at 20:00; Stop 01/04/18 at 19:59 ; Status DC Morphine Sulfate (Morphine Sulfate) 4 mg PRN Q2HR PRN IV PAIN Last administered on 01/04/18at 00:53; Start 01/03/18 at 20:00; Stop 01/04/18 at 16:41 ; Status DC Ringer's Solution 1,000 ml @ 75 mls/hr 1X ONCE IV Last administered on at 21:48; Start 01/03/18 at 20:00; Stop 01/04/18 at 09:19; Status DC Cefazolin Sodium/ Dextrose 50 ml @ 100 mls/hr 1X ONCE IV Last administered on 01/03/18at 20:35; Start 01/03/18 at 20:00; Stop 01/03/18 at 20:29; Status DC Metronidazole 100 ml @ 100 mls/hr 1X ONCE IV Last administered on 01/03/18at 21:48; Start 01/03/18 at 20:00; Stop 01/03/18 at 20:59; Status DC Propofol 20 ml @ As Directed STK-MED ONCE IV ; Start 01/04/18 at 09:04; Stop at 09:05; Status DC Succinylcholine Chloride (Anectine) 200 mg STK-MED ONCE .ROUTE ; Start 01/04/18 at 09:04; Stop 01/04/18 at 09:05; Status DC Rocuronium Reading (Zemuron) 50 mg STK-MED ONCE .ROUTE ; Start 01/04/18 at 09:04 ; Stop 01/04/18 at 09:05; Status DC Fentanyl Citrate (Fentanyl 2ml Vial) 100 mcg STK-MED ONCE .ROUTE ; Start at 09:04; Stop 01/04/18 at 09:05; Status DC Piperacillin Sod/ Tazobactam Sod 3.375 gm/Sodium Chloride 50 ml @ 100 mls/hr 1X ONCE IV Last administered on 01/04/18at 11:01; Start 01/04/18 at 09:45; Stop 01/04/18 at 10:14; Status DC Bupivacaine HCl/ Epinephrine Bitart (Marcaine-Epi 0.5%-1:802500) 50 ml STK-MED ONCE .ROUTE Last administered on 01/04/18at 13:34; Start 01/04/18 at 09:27; Stop 01/04/18 at 10:28; Status DC Dexamethasone Sodium Phosphate (Decadron) 20 mg STK-MED ONCE .ROUTE ; Start at 10:52; Stop 01/04/18 at 10:53; Status DC Ondansetron HCl (Zofran) 4 mg STK-MED ONCE .ROUTE ; Start 01/04/18 at 10:52; Stop 01/04/18 at 10:53; Status DC Desflurane (Suprane) 30 ml STK-MED ONCE IH ; Start 01/04/18 at 10:52; Stop 01/04 at 10:53; Status DC Ondansetron HCl (Zofran) 4 mg PRN Q6HRS PRN IV NAUSEA/VOMITING; Start 01/04/18 at 11:00; Stop 01/05/18 at 10:59; Status DC Fentanyl Citrate (Fentanyl 2ml Vial) 25 mcg PRN Q5MIN PRN IV MILD PAIN; Start 01/04/18 at 11:00; Stop 01/05/18 at 10:59; Status DC Fentanyl Citrate (Fentanyl 2ml Vial) 50 mcg PRN Q5MIN PRN IV MODERATE TO SEVERE PAIN Last administered on 01/04/18at 14:13; Start 01/04/18 at 11:00; Stop 01/05/18 at 10:59; Status DC Morphine Sulfate (Morphine Sulfate) 1 mg PRN Q10MIN PRN IV SEVERE PAIN; Start 01/04/18 at 11:00; Stop 01/04/18 at 16:41; Status DC Ringer's Solution 1,000 ml @ 30 mls/hr Q24H IV ; Start 01/04/18 at 10:57; Stop 01/04/18 at 22:56; Status DC Lidocaine HCl (Xylocaine-Mpf 1% 2ml Vial) 2 ml 1X PRN PRN ID IV START; Start at 11:00; Stop 01/05/18 at 10:59; Status DC Hydromorphone HCl (Dilaudid) 0.5 mg PRN Q10MIN PRN IV SEV PAIN, Second choice; Start 01/04/18 at 11:00; Stop 01/05/18 at 10:59; Status DC Prochlorperazine Edisylate (Compazine) 5 mg PACU PRN PRN IV NAUSEA, MRX1; Start 01/04/18 at 11:00; Stop 01/05/18 at 10:59; Status DC Glycopyrrolate (Robinul) 1 mg STK-MED ONCE .ROUTE ; Start 01/04/18 at 11:05; Stop 01/04/18 at 11:06; Status DC Neostigmine Methylsulfate (Neostigmine Methylsulfate) 5 mg STK-MED ONCE .ROUTE ; Start 01/04/18 at 11:05; Stop 01/04/18 at 11:06; Status DC Phenylephrine HCl (PHENYLEPHRINE in 0.9% NACL PF) 1 mg STK-MED ONCE IV ; Start 01/04/18 at 11:09; Stop 01/04/18 at 11:10; Status DC Atorvastatin Calcium (Lipitor) 20 mg QHS PO Last administered on 01/05/18at 20: 14; Start 01/04/18 at 21:00 Insulin Glargine (Lantus) 40 units QHS SQ Last administered on 01/05/18at 21:17 ; Start 01/04/18 at 21:00 Lisinopril (Prinivil) 20 mg DAILY PO Last administered on 01/06/18at 08:28; Start 01/04/18 at 12:00 Insulin Human Lispro (HumaLOG) 15 units TIDWMEALS SQ ; Start 01/04/18 at 12:00 Metformin HCl (Glucophage) 1,000 mg BIDWMEALS PO ; Start 01/06/18 at 08:00 Sodium Chloride 1,000 ml @ 100 mls/hr Q10H IV ; Start 01/04/18 at 11:29; Stop 01/04/18 at 21:28; Status DC Fentanyl Citrate (Fentanyl 2ml Vial) 100 mcg STK-MED ONCE .ROUTE ; Start at 12:43; Stop 01/04/18 at 12:44; Status DC Morphine Sulfate 30 ml @ 0 mls/hr CONT PRN PRN IV PER PROTOCOL Last administered on 01/04/18at 14:23; Start 01/04/18 at 13:30 Piperacillin Sod/ Tazobactam Sod 3.375 gm/Sodium Chloride 50 ml @ 100 mls/hr Q6HRS IV Last administered on 01/06/18at 06:08; Start 01/04/18 at 18:00 Enoxaparin Sodium (Lovenox 40mg Syringe) 40 mg Q24H SQ ; Start 01/04/18 at 14:00 Insulin Human Lispro (HumaLOG VIAL) 8 unit 1X ONCE SQ Last administered on at 14:06; Start 01/04/18 at 14:00; Stop 01/04/18 at 14:02; Status DC Fentanyl Citrate (Fentanyl 2ml Vial) 100 mcg STK-MED ONCE .ROUTE ; Start at 14:02; Stop 01/04/18 at 14:03; Status DC Morphine Sulfate 30 ml @ As Directed STK-MED ONCE IV ; Start 01/04/18 at 14:03; Stop 01/04/18 at 14:04; Status DC Insulin Human Lispro (HumaLOG) 0-9 UNITS TIDWMEALS SQ Last administered on 01/04at 18:12; Start 01/04/18 at 18:30 Dextrose (Dextrose 50%-Water Syringe) 12.5 gm PRN Q15MIN PRN IV SEE COMMENTS; Start 01/04/18 at 18:00 Diphenhydramine HCl (Benadryl) 25 mg PRN Q6HRS PRN PO ITCHING Last administered on 01/04/18at 20:35; Start 01/04/18 at 20:00 Celecoxib (CeleBREX) 200 mg BID PO ; Start 01/05/18 at 09:00; Status UNV Sodium Chloride 1,000 ml @ 25 mls/hr Q24H IV Last administered on 01/05/18at 08 :24; Start 01/05/18 at 07:45 Ondansetron HCl (Zofran) 4 mg PRN Q6HRS PRN IV NAUSEA/VOMITING Last administered on 01/05/18at 20:15; Start 01/05/18 at 15:00 Celecoxib (CeleBREX) 200 mg BID PO Last administered on 01/06/18at 08:27; Start 01/05/18 at 21:00 Prochlorperazine Edisylate (Compazine) 10 mg PRN Q6HRS PRN IM NAUSEA/VOMITING; Start 01/05/18 at 18:30; Stop 01/05/18 at 18:30; Status DC Prochlorperazine Edisylate (Compazine) 10 mg PRN Q6HRS PRN IV NAUSEA/VOMITING; Start 01/05/18 at 18:30 Active Scripts Active Reported Celebrex (Celecoxib) 200 Mg Capsule 200 Mg PO BID 30 Days Atorvastatin Calcium 20 Mg Tablet 1 Tab PO DAILY Lisinopril 20 Mg Tablet 1 Tab PO DAILY Metformin Hcl 1,000 Mg Tablet 1,000 Mg PO BID Novolog (Insulin Aspart) 100 Unit/1 Ml Cartridge 15 Unit SQ TIDWMEALS Lantus Solostar (Insulin Glargine,Hum.rec.anlog) 100 Unit/1 Ml Insuln.pen 40 Unit SQ QHS Vitals/I & O Vital Sign - Last 24 Hours 01/05/18 01/05/18 01/05/18 01/05/18 08:31 11:00 15:00 19:25 Temp 97.9 98.1 97.8 97.9 98.1 97.8 Pulse 79 68 81 74 Resp 16 16 18 B/P (MAP) 117/52 118/62 (80) 117/42 (67) 102/50 (67) Pulse Ox 94 94 99 O2 Delivery Room Air Room Air Room Air 01/05/18 01/05/18 01/06/18 01/06/18 20:05 23:16 03:20 08:28 Temp 97.6 97.4 97.6 97.4 Pulse 77 85 79 Resp 18 16 B/P (MAP) 115/53 (73) 115/50 (71) 120/52 Pulse Ox 96 94 O2 Delivery Nasal Cannula Nasal Cannula Room Air O2 Flow Rate 2.0 2.0 Intake and Output 01/05/18 01/05/18 01/06/18 15:00 23:00 07:00 Intake Total 1141.0 ml 50 ml 689.22 ml Output Total 2500 ml 500 ml Balance 1141.0 ml -2450 ml 189.22 ml ELLIOTT DRAKE MD Jan 06, 2018 08:33
[2018-01-06 11:00] VITALS: BP 99/57
--- NOTE | 2018-01-06 14:08 | PATHOLOGY ---
[facility] Accession Number: [id number] . 01 Material submitted: . APPENDIX . 01 Clinical history: . Appendicitis . 02 Diagnosis: Appendix, laparoscopic appendectomy: - Acute suppurative and hemorrhagic appendicitis. [facility]/01/06/2018 . 02 Comment: There is no evidence of rupture. There is no evidence of malignancy. . (JPM:mm; 01/06/18) . 02 Electronically signed: . Rupert Hayes MD, Pathologist NPI- [id number] . 01 Gross description: . Received in formalin labeled "Macarena Gibbons, appendix" is a burnett, brown and hemorrhagic vermiform appendix (9.0 x 1.4 cm) with attached congested and hemorrhagic mesoappendix (4.0 x 2.2 x 2.0 cm). The stapled margin is inked. The lumen contains thick brown material. There is marked transmural necrosis as well as red-brown mucosal discoloration. There are no masses identified. Team Facilitator sections are submitted A1-A2. (NORBERTO; 01/05/2018) JBR/JBR . 02 Pathologist provided ICD-10: K35.80 . 02 CPT . 053546 Specimen Comment: A courtesy copy of this report has been sent to Specimen Comment: [phone], . Specimen Comment: Report sent to Performed at: 01 [facility] [address], [place] [id number] MD Dom Valencia MD Phone: [phone] Performed at: 02 [facility] [address] [place], [place] [id number] MD Rupert Hayes MD Phone: [phone]
[2018-01-06 15:00] VITALS: BP 130/47
[2018-01-06] MEDS ORDERED: HYDROcodone/APAP 7.5/325MG 1 TAB TABLET PO PRN (15:00)
[2018-01-06] MEDS: HYDROcodone/APAP 7.5/325MG 1 TAB TABLET PO PRN (15:54)
[2018-01-06] MEDS: ENOXAPARIN 40 MG/0.4 ML SYRINGE. SQ SCH (15:55)
[2018-01-06 19:00] VITALS: BP 126/43
[2018-01-06] MEDS: INSULIN GLARGINE 300 UNITS/3 ML INSULN.PEN. SQ SCH (21:00)
[2018-01-06] MEDS: LACTOBACILLUS RHAMNOSUS GG 1 CAPSULE. PO SCH (21:20)
[2018-01-06] MEDS: ATORVASTATIN CALCIUM 20 MG TABLET PO SCH (21:20)
[2018-01-06 23:00] VITALS: BP 134/61
[2018-01-07 03:00] VITALS: BP 130/75
[2018-01-07 05:09] LABS: BASO % 1 % (0-3); EOS % 1 % (0-3); HEMATOCRIT 31.3 % (36.0-47.0); HEMOGLOBIN 10.2 g/dL (12.0-15.5); LYMPH % 15 % (24-48); MEAN CORPUSCULAR HEMOGLOBIN 26 pg (25-35); MEAN CORPUSCULAR HGB CONC 33 g/dL (31-37); MEAN CORPUSCULAR VOLUME 80 fL (79-100); MONO # 0.6 x10^3/uL (0.0-1.1); MONO % 9 % (0-9); NEUT % 75 % (31-73); PLATELET COUNT 198 x10^3/uL (140-400); RED BLOOD COUNT 3.89 x10^6/uL (3.50-5.40); RED CELL DISTRIBUTION WIDTH 15.4 % (11.5-14.5); WHITE BLOOD COUNT 6.6 x10^3/uL (4.0-11.0)
[2018-01-07 05:43] LABS: CALCIUM 8.8 mg/dL (8.5-10.1); CREATININE 0.5 mg/dL (0.6-1.0); GFR 121.6; POTASSIUM 3.8 mmol/L (3.5-5.1)
[2018-01-07] MEDS: PIPERACILLIN/TAZOBACTAM 3.375 GM in IV NORMAL SALINE 50ML 50 ML IV SCH ×3 (06:18→18:26)
[2018-01-07 07:00] VITALS: BP 153/64
[2018-01-07] MEDS: INSULIN LISPRO 300 UNITS/3 ML INSULN.PEN. SQ SCH ×6 (08:00→17:00)
[2018-01-07] MEDS: LACTOBACILLUS RHAMNOSUS GG 1 CAPSULE. PO SCH ×2 (08:32→20:57)
[2018-01-07] MEDS: CELECOXIB 100 MG CAPSULE. PO SCH ×2 (08:37→20:58)
[2018-01-07] MEDS: LISINOPRIL 20 MG TABLET PO SCH (08:37)
--- NOTE | 2018-01-07 09:52 | PDOC ---
SURGICAL PROGRESS NOTE Subjective Patient doing well minimal complaints no pain passing stool Vital Signs Vital Signs Date Time Temp Pulse Resp B/P (MAP) Pulse Ox O2 Delivery O2 Flow Rate FiO2 01/07/18 08:37 153 64/74 01/07/18 07:00 97.9 16 100 Room Air 2.5 97.9 I&O Intake and Output 01/07/18 07:00 Intake Total 150 ml Balance 150 ml Intake Oral 150 ml # Voids 4 PATIENT HAS A HOFFMAN: No General: Alert, Oriented X3, Cooperative, mild distress Abdomen: Normal bowel sounds, Soft, No tenderness, Other (wounds clean dry and intact) Labs Laboratory Tests Test 01/05/18 12:15 01/05/18 17:20 01/05/18 20:50 01/06/18 08:11 Glucose (Fingerstick) 149 mg/dL (70-99) 139 mg/dL (70-99) 144 mg/dL (70-99) 105 mg/dL (70-99) Test 01/06/18 11:38 01/06/18 13:25 01/06/18 17:11 01/06/18 21:18 Glucose (Fingerstick) 114 mg/dL (70-99) 160 mg/dL (70-99) 134 mg/dL (70-99) 137 mg/dL (70-99) Test 01/07/18 04:05 01/07/18 08:38 White Blood Count 6.6 x10^3/uL (4.0-11.0) Red Blood Count 3.89 x10^6/uL (3.50-5.40) Hemoglobin 10.2 g/dL (12.0-15.5) Hematocrit 31.3 % (36.0-47.0) Mean Corpuscular Volume 80 fL (79-100) Mean Corpuscular Hemoglobin 26 pg (25-35) Mean Corpuscular Hemoglobin Concent 33 g/dL (31-37) Red Cell Distribution Width 15.4 % (11.5-14.5) Platelet Count 198 x10^3/uL (140-400) Neutrophils (%) (Auto) 75 % (31-73) Lymphocytes (%) (Auto) 15 % (24-48) Monocytes (%) (Auto) 9 % (0-9) Eosinophils (%) (Auto) 1 % (0-3) Basophils (%) (Auto) 1 % (0-3) Neutrophils # (Auto) 5.0 x10^3uL (1.8-7.7) Lymphocytes # (Auto) 1.0 x10^3/uL (1.0-4.8) Monocytes # (Auto) 0.6 x10^3/uL (0.0-1.1) Eosinophils # (Auto) 0.0 x10^3/uL (0.0-0.7) Basophils # (Auto) 0.0 x10^3/uL (0.0-0.2) Sodium Level 141 mmol/L (136-145) Potassium Level 3.8 mmol/L (3.5-5.1) Chloride Level 105 mmol/L (98-107) Carbon Dioxide Level 29 mmol/L (21-32) Anion Gap 7 (6-14) Blood Urea Nitrogen 14 mg/dL (7-20) Creatinine 0.5 mg/dL (0.6-1.0) Estimated GFR (Cockcroft-Gault) 121.6 Glucose Level 112 mg/dL (70-99) Calcium Level 8.8 mg/dL (8.5-10.1) Glucose (Fingerstick) 124 mg/dL (70-99) Laboratory Tests Test 01/06/18 11:38 01/06/18 13:25 01/06/18 17:11 01/06/18 21:18 Glucose (Fingerstick) 114 mg/dL (70-99) 160 mg/dL (70-99) 134 mg/dL (70-99) 137 mg/dL (70-99) Test 01/07/18 04:05 01/07/18 08:38 White Blood Count 6.6 x10^3/uL (4.0-11.0) Red Blood Count 3.89 x10^6/uL (3.50-5.40) Hemoglobin 10.2 g/dL (12.0-15.5) Hematocrit 31.3 % (36.0-47.0) Mean Corpuscular Volume 80 fL (79-100) Mean Corpuscular Hemoglobin 26 pg (25-35) Mean Corpuscular Hemoglobin Concent 33 g/dL (31-37) Red Cell Distribution Width 15.4 % (11.5-14.5) Platelet Count 198 x10^3/uL (140-400) Neutrophils (%) (Auto) 75 % (31-73) Lymphocytes (%) (Auto) 15 % (24-48) Monocytes (%) (Auto) 9 % (0-9) Eosinophils (%) (Auto) 1 % (0-3) Basophils (%) (Auto) 1 % (0-3) Neutrophils # (Auto) 5.0 x10^3uL (1.8-7.7) Lymphocytes # (Auto) 1.0 x10^3/uL (1.0-4.8) Monocytes # (Auto) 0.6 x10^3/uL (0.0-1.1) Eosinophils # (Auto) 0.0 x10^3/uL (0.0-0.7) Basophils # (Auto) 0.0 x10^3/uL (0.0-0.2) Sodium Level 141 mmol/L (136-145) Potassium Level 3.8 mmol/L (3.5-5.1) Chloride Level 105 mmol/L (98-107) Carbon Dioxide Level 29 mmol/L (21-32) Anion Gap 7 (6-14) Blood Urea Nitrogen 14 mg/dL (7-20) Creatinine 0.5 mg/dL (0.6-1.0) Estimated GFR (Cockcroft-Gault) 121.6 Glucose Level 112 mg/dL (70-99) Calcium Level 8.8 mg/dL (8.5-10.1) Glucose (Fingerstick) 124 mg/dL (70-99) Assessment/Plan That is post open appendectomy white count normal Advance diet if tolerated potentially home tomorrow JADE NGUYỄN MD Jan 07, 2018 09:52
--- NOTE | 2018-01-07 12:11 | PDOC ---
PROGRESS NOTES Subjective She feels well, no chest pain, no SOA, pain controlled, dressing dry, bowel function returning but needs another day here per surgery. Family present, no concerns or questions Objective Afebrile General: Up in chair, NAD Heart: RRR no murmur Lungs: CTAB Abd: soft, incision healing Ext: no C/C/E Vital Signs Vital Signs Date Time Temp Pulse Resp B/P (MAP) Pulse Ox O2 Delivery O2 Flow Rate FiO2 01/07/18 08:37 153 64/74 01/07/18 07:00 97.9 16 100 Room Air 2.5 97.9 I & O Intake and Output 01/07/18 07:00 Intake Total 150 ml Balance 150 ml Intake Oral 150 ml # Voids 4 Assessment and Plan 1. Acute appendicitis s/p open appendectomy POD # 3 - likely home tomorrow 2. Type 2 diabetes - controlled 3. HTN - controlled Stephanie ODELL MD Jan 07, 2018 12:11
[2018-01-07 15:23] VITALS: BP 149/53
[2018-01-07] MEDS: ENOXAPARIN 40 MG/0.4 ML SYRINGE. SQ SCH (17:18)
[2018-01-07 19:00] VITALS: BP 139/53
[2018-01-07] MEDS: ATORVASTATIN CALCIUM 20 MG TABLET PO SCH (20:58)
[2018-01-07] MEDS: HYDROcodone/APAP 7.5/325MG 1 TAB TABLET PO PRN (20:58)
[2018-01-07] MEDS: INSULIN GLARGINE 300 UNITS/3 ML INSULN.PEN. SQ SCH (20:59)
[2018-01-07 23:00] VITALS: BP 145/71
[2018-01-08] MEDS: PIPERACILLIN/TAZOBACTAM 3.375 GM in IV NORMAL SALINE 50ML 50 ML IV SCH ×2 (00:15→06:14)
[2018-01-08 03:00] VITALS: BP 154/58
[2018-01-08 07:00] VITALS: BP 153/58
[2018-01-08] MEDS: INSULIN LISPRO 300 UNITS/3 ML INSULN.PEN. SQ SCH ×2 (08:00)
[2018-01-08 09:05] VITALS: BP 154/58
[2018-01-08] MEDS: LACTOBACILLUS RHAMNOSUS GG 1 CAPSULE. PO SCH (09:05)
[2018-01-08] MEDS: LISINOPRIL 20 MG TABLET PO SCH (09:05)
[2018-01-08] MEDS: CELECOXIB 100 MG CAPSULE. PO SCH (09:05)
--- NOTE | 2018-01-08 09:34 | PDOC ---
SURGICAL PROGRESS NOTE Subjective Patient doing well denies any pain tolerating diet Vital Signs Vital Signs Date Time Temp Pulse Resp B/P (MAP) Pulse Ox O2 Delivery O2 Flow Rate FiO2 01/08/18 09:05 76 154/58 01/08/18 03:00 98.3 18 95 Room Air 98.3 01/07/18 07:00 2.5 I&O Intake and Output 01/08/18 07:00 Intake Total 150 ml Balance 150 ml IV Total 150 ml # Voids 9 # Bowel Movements 3 General: Alert, Oriented X3, Cooperative, No acute distress Abdomen: Normal bowel sounds, Soft, No tenderness, Other (wounds clean dry and intact) Labs Laboratory Tests Test 01/06/18 11:38 01/06/18 13:25 01/06/18 17:11 01/06/18 21:18 Glucose (Fingerstick) 114 mg/dL (70-99) 160 mg/dL (70-99) 134 mg/dL (70-99) 137 mg/dL (70-99) Test 01/07/18 04:05 01/07/18 08:38 01/07/18 12:10 01/07/18 16:58 White Blood Count 6.6 x10^3/uL (4.0-11.0) Red Blood Count 3.89 x10^6/uL (3.50-5.40) Hemoglobin 10.2 g/dL (12.0-15.5) Hematocrit 31.3 % (36.0-47.0) Mean Corpuscular Volume 80 fL (79-100) Mean Corpuscular Hemoglobin 26 pg (25-35) Mean Corpuscular Hemoglobin Concent 33 g/dL (31-37) Red Cell Distribution Width 15.4 % (11.5-14.5) Platelet Count 198 x10^3/uL (140-400) Neutrophils (%) (Auto) 75 % (31-73) Lymphocytes (%) (Auto) 15 % (24-48) Monocytes (%) (Auto) 9 % (0-9) Eosinophils (%) (Auto) 1 % (0-3) Basophils (%) (Auto) 1 % (0-3) Neutrophils # (Auto) 5.0 x10^3uL (1.8-7.7) Lymphocytes # (Auto) 1.0 x10^3/uL (1.0-4.8) Monocytes # (Auto) 0.6 x10^3/uL (0.0-1.1) Eosinophils # (Auto) 0.0 x10^3/uL (0.0-0.7) Basophils # (Auto) 0.0 x10^3/uL (0.0-0.2) Sodium Level 141 mmol/L (136-145) Potassium Level 3.8 mmol/L (3.5-5.1) Chloride Level 105 mmol/L (98-107) Carbon Dioxide Level 29 mmol/L (21-32) Anion Gap 7 (6-14) Blood Urea Nitrogen 14 mg/dL (7-20) Creatinine 0.5 mg/dL (0.6-1.0) Estimated GFR (Cockcroft-Gault) 121.6 Glucose Level 112 mg/dL (70-99) Calcium Level 8.8 mg/dL (8.5-10.1) Glucose (Fingerstick) 124 mg/dL (70-99) 132 mg/dL (70-99) 144 mg/dL (70-99) Test 01/07/18 20:41 01/08/18 07:55 Glucose (Fingerstick) 151 mg/dL (70-99) 176 mg/dL (70-99) Laboratory Tests Test 01/07/18 12:10 01/07/18 16:58 01/07/18 20:41 01/08/18 07:55 Glucose (Fingerstick) 132 mg/dL (70-99) 144 mg/dL (70-99) 151 mg/dL (70-99) 176 mg/dL (70-99) Assessment/Plan Status post open appendectomy Stable from surgical point of view Follow-up with Dr. Irwin in 2 weeks JADE NGUYỄN MD Jan 08, 2018 09:34
--- NOTE | 2018-01-08 09:35 | DISCH ---
DISCHARGE INSTRUCTIONS Activity After Discharge Activity Instructions for Disc: Avoid exertion Other activity instructions: no lifting more than 20 pounds for 2 weeks Follow-Up Follow up with: Dr. Irwin in 2 weeks JADE NGUYỄN MD Jan 08, 2018 09:35
[2018-01-08] MEDS ORDERED: HYDR-2762 PO (11:01)
[2018-01-08] MEDS ORDERED: ONDA4TAB7 PO (11:01)
--- NOTE | 2018-01-08 11:13 | PDOC3 ---
Discharge Summary [facility] Date of Admission: Jan 03, 2018 Discharge Date: Jan 08, 2018 Admitting Diagnosis acute appendicitis Final Diagnosis acute appendicitis CONSULTS Dc Procedures open appendectomy Brief Hospital Course Ms. Gibbons is a 72 old who presented with: acute RLQ abdominal pain and found to have acute appendicitis and taken to OR with plan for laparoscopic removal but it was difficult to isolate from the cecum due to adhesions and required an open procedure resulting in longer hospital stay while awaiting bowel function to return. Her chronic problems were stable and her diabetes and blood pressure were controlled Disposition home CONDITION AT DISCHARGE: Improved, Stable Diet advance as tolerated to diabetic Scheduled Atorvastatin Calcium (Atorvastatin Calcium), 1 TAB PO DAILY, (Reported) Celecoxib (Celebrex), 200 MG PO BID, (Reported) Insulin Aspart (Novolog), 15 UNIT SQ TIDWMEALS, (Reported) Insulin Glargine,Hum.rec.anlog (Lantus Solostar), 40 UNIT SQ QHS, (Reported) Lisinopril (Lisinopril), 1 TAB PO DAILY, (Reported) Metformin Hcl (Metformin Hcl), 1,000 MG PO BID, (Reported) Follow Up [address] Irwin and Dr. Del Angel within 2 weeks Stephanie ODELL MD Jan 08, 2018 11:13
== END 2018-01-08 13:20 | disposition home or self-care (01) | DRG 341 ==
LOC: ER 17:23 → 4 NORTH 17:45
PROVIDERS: ADMIT Family Medicine; ATTEND Family Medicine
PROC: 0DJD4ZZ Inspection of Lower Intestinal Tract, Percutaneous Endoscopic Approach (ICD-10-PCS; 2018-01-04)
PROC: 0DTJ0ZZ Resection of Appendix, Open Approach (ICD-10-PCS; principal; 2018-01-04 10:00)
DX: K35.80 Unspecified acute appendicitis (principal); R65.11 Systemic inflammatory response syndrome (SIRS) of non-infectious origin with acute organ dysfunction; E11.9 Type 2 diabetes mellitus without complications; E78.00 Pure hypercholesterolemia, unspecified; I10 Essential (primary) hypertension; M19.90 Unspecified osteoarthritis, unspecified site; H26.9 Unspecified cataract; I87.2 Venous insufficiency (chronic) (peripheral); Z90.710 Acquired absence of both cervix and uterus; Z87.891 Personal history of nicotine dependence; Z53.31 Laparoscopic surgical procedure converted to open procedure
CPT/HCPCS: 36415; 74177; 80048; 80053; 80076; 81001; 82962; 83605; 83690; 84484; 85007; 85025; 88304; 93005; 96365; 96368; 96375; 96376; J0330; J0690; J1100; J1650; J1815; J2270; J2370; J2405; J2543; J2704; J2710; J3010; J3490; J7030; J7120; Q0163; Q9967; 97116; 97535; 99285-25

== ENCOUNTER → 2018-02-23 | Outpatient (CLI) | payer OTHER ==
[~2018-02-23] MED LIST: ALBUTEROL SULFATE 2.5 MG/3 ML NEBU. NEB ONE; ATOR20TA58 PO; CELE200C PO; HYDR-2762 PO; INSU100C4 SQ; INSU100I13 SQ; LISI-334 PO; METF10007 PO; ONDA4TAB7 PO
--- NOTE | 2018-02-28 14:53 | RESP ---
DATE OF SERVICE: 02/23/2018 ATTENDING PHYSICIAN: Dr. Carter. The patient's FVC was 2.04, which is 83% predicted, FEV1 1.37, which is 73% predicted. The FEV1/FVC ratio was mildly reduced. VPQ50-40 was 40% predicted. There was an excellent response to bronchodilators with 20% improvement in FVC and 18% improvement in FEV1. Lung volume showed a total lung capacity of 117% predicted, residual volume increased at 164% predicted. Diffusion capacity was normal at 81% predicted. IMPRESSION: 1. Mild obstructive airway disease. 2. Excellent response to bronchodilators, suggesting a component of reactive airway disease. 3. Lung volumes consistent with hyperinflation and air trapping. 4. Normal diffusion capacity. ROSA LIMON MD DR: LILIANE/ysabel JOB#: [id number] / [id number] DUSTIN Corbett MD
== END | disposition home or self-care (01) ==
LOC: PF 08:47
PROVIDERS: ATTEND Internal Medicine Cardiovascular Disease
DX: R06.00 Dyspnea, unspecified (principal)
CPT/HCPCS: 94060; 94640; 94729; J7613

== ENCOUNTER → 2018-06-13 | Outpatient (CLI) | payer OTHER ==
[~2018-06-13] MED LIST changes: -ALBUTEROL SULFATE 2.5 MG/3 ML NEBU. NEB ONE; +ATOR10TA60 PO; +CITA20TA6 PO; +FERR325T14 PO; -HYDR-2762 PO; +HYDR-2765 PO; +LISI10TA2 PO; +OXYC1TAB15 PO
--- NOTE | 2018-06-13 14:05 | RAD ---
DATE: June 13, 2018 EXAM: DIGITAL SCREEN BILAT W/CAD HISTORY: Screening study. COMPARISON: August 11, 2012 2-D digital mammography of both breasts were performed in the CC and MLO projections. This study was interpreted with the benefit of Computerized Aided Detection (CAD). FINDINGS: Breast Density: SCATTERED The breast parenchyma shows scattered fibroglandular densities. Breast parenchyma level B.. There are no dominant suspicious masses, suspicious microcalcifications or evidence of architectural distortion. Scattered calcifications of the upper-outer quadrant of the left breast are stable. Coarse benign-appearing calcifications of the right breast are stable. IMPRESSION: No mammographic indicators for malignancy. BI-RADS CATEGORY: 2 BENIGN FINDING RECOMMENDED FOLLOW-UP: 12M 12 MONTH FOLLOW-UP PQRS compliance statement: Patient information was entered into a reminder system with a target due date June 14, 2019 for the next mammogram. Mammography is a sensitive method for finding small breast cancers, but it does not detect them all and is not a substitute for careful clinical examination. A negative mammogram does not negate a clinically suspicious finding and should not result in delay in biopsying a clinically suspicious abnormality. "Our facility is accredited by the [employer] Mammography Program." The patient's breast density may affect the ability of mammography to detect breast cancer. There are 4 categories of breast density, A, B, C and D. Breast density A means that most of the breast tissue is replaced with adipose tissue and therefore is not dense. Breast density B means that the breast tissue is mildly dense and scattered. Breast density C means that the breast tissue is heterogeneously dense. Breast density D means that the breast tissue is very dense. Breast densities especially C and D may decrease the sensitivity of mammography to detect breast cancer. Therefore, the patient may benefit from 3-D breast mammography (3D breast tomography) as a part of their screening mammogram. Insurance may or may not pay for this additional imaging. The patient's breast density based on today's mammogram is category B..
== END | disposition home or self-care (01) ==
LOC: MAMMO 09:51
PROVIDERS: ATTEND Family Medicine
DX: Z12.31 Encounter for screening mammogram for malignant neoplasm of breast (principal)
CPT/HCPCS: 77067

== ENCOUNTER → 2018-06-28 | Outpatient (CLI) | payer OTHER ==
--- NOTE | 2018-06-28 09:43 | RAD ---
Abdominal ultrasound, 06/28/2018: HISTORY: Gallstone The gallbladder is within normal limits in size. It contains multiple echogenic foci with posterior acoustic shadowing compatible with gallstones. The gallbladder wall is not thickened. The common hepatic duct measures 5 mm which is within normal limits. The hepatic echogenicity is mildly increased in a diffuse pattern, most commonly due to fatty change. No hepatic mass is evident. The visualized portions of the pancreatic body are unremarkable. Other portions of the pancreas as well as much of the abdominal aorta and inferior vena cava were obscured by overlying bowel. The spleen is within normal limits in size. No renal abnormality is detected. No free fluid is evident in the abdomen. IMPRESSION: 1. Cholelithiasis. 2. Increased hepatic echogenicity suggesting fatty change. Electronically signed by: Bradley Oropeza MD (06/28/2018 9:40 AM) [facility]
== END | disposition home or self-care (01) ==
LOC: US 09:11
PROVIDERS: ATTEND Family Medicine
DX: K80.12 Calculus of gallbladder with acute and chronic cholecystitis without obstruction (principal)
CPT/HCPCS: 76700

== ENCOUNTER → 2018-07-10 | Outpatient (CLI) | payer OTHER ==
[2018-07-10 10:48] LABS: BASO % 0 % (0-3); EOS % 0 % (0-3); HEMATOCRIT 39.8 % (36.0-47.0); HEMOGLOBIN 12.6 g/dL (12.0-15.5); LYMPH # 1.2 x10^3/uL (1.0-4.8); LYMPH % 21 % (24-48); MEAN CORPUSCULAR HEMOGLOBIN 26 pg (25-35); MEAN CORPUSCULAR HGB CONC 32 g/dL (31-37); MEAN CORPUSCULAR VOLUME 81 fL (79-100); MONO # 0.4 x10^3/uL (0.0-1.1); MONO % 7 % (0-9); NEUT # 4.2 x10^3uL (1.8-7.7); NEUT % 72 % (31-73); PLATELET COUNT 219 x10^3/uL (140-400); RED BLOOD COUNT 4.93 x10^6/uL (3.50-5.40); RED CELL DISTRIBUTION WIDTH 18.7 % (11.5-14.5); WHITE BLOOD COUNT 5.9 x10^3/uL (4.0-11.0)
[2018-07-10 11:27] LABS: ALBUMIN 3.4 g/dL (3.4-5.0); ALBUMIN/GLOBULIN RATIO 0.8 (1.0-1.7); CALCIUM 9.5 mg/dL (8.5-10.1); CREATININE 0.6 mg/dL (0.6-1.0); GFR 98.5; POTASSIUM 4.6 mmol/L (3.5-5.1); TOTAL BILIRUBIN 0.4 mg/dL (0.2-1.0); TOTAL PROTEIN 7.6 g/dL (6.4-8.2)
[2018-07-11 06:15] LABS: HEMOGLOBIN A1C 7.4 % (4.8-5.6)
--- NOTE | 2018-07-11 18:32 | NUR ---
PRE -OP TEST REPORTS WAS FAXED TO 'S OFFICE AT 0355 07/11/2018 AND ALSO CALLED OFFICE AND TALKED TO JEREMI YOUNG OF OFFICE PANEL LAMINATOR AT 1350 TODAY AND INFORMED HER THAT EKG WAS DONE 01/03/2018..
== END | disposition home or self-care (01) ==
LOC: SURGPAT 09:16
PROVIDERS: ATTEND Surgery
DX: K80.12 Calculus of gallbladder with acute and chronic cholecystitis without obstruction (principal); Z01.812 Encounter for preprocedural laboratory examination; Z87.891 Personal history of nicotine dependence; R79.89 Other specified abnormal findings of blood chemistry
CPT/HCPCS: 36415; 80053; 83036; 85025

== ENCOUNTER → 2018-07-14 | Day surgery (SDC) | payer OTHER ==
[~2018-07-14] VITALS: Ht 147.3 cm; Wt 73.9 kg
[~2018-07-14] MED LIST changes: +BUPIVAC MPF-EPI 0.5%-1:200000 30 ML VIAL. ONE; +DEXAMETHASONE SOD PHOS 20 MG/5 ML VIAL. ONE; +GLYCOPYRROLATE 1 MG/5 ML VIAL. ONE; +HYDROmorphone 2 MG/ML VIAL IV PRN; +IV RINGERS,LACTATED 1000ML 1,000 ML IV SCH; +LIDOCAINE 2% PF 5 ML VIAL. ONE; +MORPHINE SULFATE 2 MG/ML VIAL. IV PRN; +NEOSTIGMINE METHYLSULFATE 5 MG/5 ML SYRINGE. ONE; +ONDANSETRON PF 4 MG/2 ML VIAL. ONE; +PROCHLORPERAZINE 10 MG/2 ML VIAL. IV PRN; +PROPOFOL 20 ML IV ONE; +ROCURONIUM 50 MG/5 ML VIAL. ONE; +SEVOFLURANE 31 TO 60 MINUTES. IH ONE; +SURGICEL HEMOSTAT 4X8 EACH. ONE; +ceFAZolin 2GM PREMIX 2 GM/50 ML BAG IV ONE; +fentaNYL PF VIAL 100 MCG/2 ML VIAL IV PRN; +fentaNYL PF VIAL 250 MCG/5 ML VIAL ONE; +oxyCODONE/APAP 5/325 1 TAB TABLET PO ONE
--- NOTE | 2018-07-14 10:13 | PDOC4 ---
Operative Note Operative Note Date: 07/14/2018 Preoperative diagnosis chronic cholecystitis cholelithiasis Postoperative diagnosis: Same Procedure: Laparoscopic cholecystectomy Surgeon: Paulo Specimen: Gallbladder Dictation: Patient is a 72-year-old female is had right upper quadrant abdominal pain postprandial nausea and ultrasound showing gallbladder sludge and small stones. The procedure of laparoscopic cholecystectomy was explained to the patient and her family in detail all risks benefits were also discussed including bleeding infection injury to intra-abdominal contents possibly necessitating further open operations alternatives to this procedure also discussed with the patient who seemed to understand and gave both verbal and written consent to have the procedure performed. Patient was taken to the operating room placed in supine position general anesthesia was initiated once patient was sleep and intubated her abdomen was prepped and draped usual sterile fashion using ChloraPrep since patient had previous abdominal surgery and area in the left upper quadrant was injected with quarter percent Marcaine with epinephrine small incision was made with 11 blade scalpel and a 5 mm Visiport was placed under direct visualization into the abdomen and a pneumoperitoneum was achieved 5 mm scope was then placed within the abdomen and inspected there were minimal adhesions mostly below the umbilicus in her pelvis eighth 11 mm port was placed at the umbilicus under direct visualization a 5 mm port was placed in the epigastrium a 5 mill meter port was placed in the right lateral abdomen and a 5 mm port was placed in the right mid abdomen the dome of the gallbladder is grasped and retracted cephalad the infundibulum of the gallbladder is grasped and retracted laterally exposing the triangle the adherent tissues the triangle were taken down with blunt and sharp dissection exposing the cystic duct and cystic artery artery was doubly clipped and transected the duct was doubly clipped and transected the gallbladder taken off the liver with a clot cautery placed in Endo Catch bag and removed from the umbilicus right upper quadrant was irrigated and suctioned dry hemostasis was deemed to be appropriate and the pneumoperitoneum was reduced all ports removed the fascial defect at the umbilicus was closed with a [id number]-[id number]-vennb 0 Vicryl suture and the skin was reapproximated all port sites with 40 subarticular Monocryl Mastisol Steri-Strips and island dressings were applied. The patient was awakened and extubated in the operating room taken to recovery in stable condition all sponge instrument needle counts listed as correct. Estimated blood loss 20 mL JADE NGUYỄN MD Jul 14, 2018 10:13
--- NOTE | 2018-07-14 10:15 | DISCH ---
DISCHARGE INSTRUCTIONS Condition on Discharge Condition on Discharge: Stable Activity After Discharge Activity Instructions for Disc: Avoid exertion Other activity instructions: no lifting more than 20 pounds for 2 weeks Diet after Discharge Diet after Discharge: Low Fat Wound Incision Care Other wound/incision instructi: May shower in 24 hours Contacting the after DC Call your doctor for: If your condition worsens Follow-Up Follow up with: Dr. Nguyễn in 2 weeks JADE NGUYỄN MD Jul 14, 2018 10:15
[2018-07-14 11:30] VITALS: BP 126/65
--- NOTE | 2018-07-17 16:07 | PATHOLOGY ---
[facility] Accession Number: [id number] . 01 Material submitted: . GALLBLADDER . 01 Clinical history: . Chronic cholecystitis . 02 Diagnosis: Gallbladder, laparoscopic cholecystectomy: - Cholelithiasis. - Chronic cholecystitis. . (JP:mm; 07/17/2018) [facility]/07/17/2018 . 02 Comment: There is no evidence of malignancy. . (JPM:mm; 07/17/2018) . 02 Electronically signed: . Rupert Hayes MD, Pathologist NPI- [id number] . 01 Gross description: . The specimen is received in formalin, labeled "Lopezserna, Macarena, gallbladder", is a disrupted, collapsed gallbladder measuring 6.0 x 3.2 x 1.4 c m with a harris-pink serosa. The lumen has scant yellow-harris blie and multiple irregular black-yellow calculi and its fragments measuring 2.8 x 2.0 x 1.2 cm in aggregate. The cystic duct is impacted by a calculus and is dilated. The mucosa is harris-pink, granular and the wall has an average thickness of 0.1 cm. No discrete masses are identified. [employer] tissue is submitted in A1. ([facility]; 07/14/2018) [facility] . 02 Pathologist provided ICD-10: K80.10 . 02 CPT . 557010 Specimen Comment: A courtesy copy of this report has been sent to Specimen Comment: [phone]. Specimen Comment: Report sent to Performed at: 01 [facility] [address], [place], [place] [id number] MD Dom Valencia MD Phone: [phone] Performed at: 02 [facility] [place] [address] [place], [place] [id number] MD Rupert Hayes MD Phone: [phone]
== END | disposition home or self-care (01) ==
LOC: SURG 07:20
PROVIDERS: ATTEND Surgery
DX: K80.10 Calculus of gallbladder with chronic cholecystitis without obstruction (principal); I10 Essential (primary) hypertension; E11.9 Type 2 diabetes mellitus without complications; E78.5 Hyperlipidemia, unspecified; J44.9 Chronic obstructive pulmonary disease, unspecified; M19.90 Unspecified osteoarthritis, unspecified site; Z79.84 Long term (current) use of oral hypoglycemic drugs; Z79.899 Other long term (current) drug therapy; Z79.2 Long term (current) use of antibiotics; Z90.49 Acquired absence of other specified parts of digestive tract; Z98.41 Cataract extraction status, right eye; Z96.1 Presence of intraocular lens; Z90.722 Acquired absence of ovaries, bilateral; Z82.61 Family history of arthritis; Z83.3 Family history of diabetes mellitus; Z82.49 Family history of ischemic heart disease and other diseases of the circulatory system; Z87.891 Personal history of nicotine dependence
CPT/HCPCS: 47562; 82962; 88304; A7015; J0696; J0780; J1100; J2001; J2405; J2704; J2710; J3010; J3490; J7030

== ENCOUNTER → 2019-05-07 | Outpatient (CLI) | payer MEDICAID ==
[2018-07-14 11:30] VITALS: BP 126/65
[~2019-05-07] MED LIST changes: -BUPIVAC MPF-EPI 0.5%-1:200000 30 ML VIAL. ONE; -DEXAMETHASONE SOD PHOS 20 MG/5 ML VIAL. ONE; -GLYCOPYRROLATE 1 MG/5 ML VIAL. ONE; -HYDROmorphone 2 MG/ML VIAL IV PRN; -IV RINGERS,LACTATED 1000ML 1,000 ML IV SCH; -LIDOCAINE 2% PF 5 ML VIAL. ONE; -MORPHINE SULFATE 2 MG/ML VIAL. IV PRN; -NEOSTIGMINE METHYLSULFATE 5 MG/5 ML SYRINGE. ONE; -ONDANSETRON PF 4 MG/2 ML VIAL. ONE; -PROCHLORPERAZINE 10 MG/2 ML VIAL. IV PRN; -PROPOFOL 20 ML IV ONE; -ROCURONIUM 50 MG/5 ML VIAL. ONE; -SEVOFLURANE 31 TO 60 MINUTES. IH ONE; -SURGICEL HEMOSTAT 4X8 EACH. ONE; -ceFAZolin 2GM PREMIX 2 GM/50 ML BAG IV ONE; -fentaNYL PF VIAL 100 MCG/2 ML VIAL IV PRN; -fentaNYL PF VIAL 250 MCG/5 ML VIAL ONE; -oxyCODONE/APAP 5/325 1 TAB TABLET PO ONE
--- NOTE | 2019-05-07 17:53 | KCIC ---
Pelvic ultrasound 05/07/2019 CLINICAL HISTORY: Pelvic pain. History of hysterectomy with surgical removal of one ovary. The patient is uncertain of which one. TECHNIQUE: Using the distended urinary bladder as a sonographic window, a real-time ultrasound examination of the pelvis was performed. Multiple images were obtained. FINDINGS: The uterus is not visualized consistent with the patient's history of a hysterectomy. Neither ovary is seen. No adnexal mass is noted. No free fluid is seen. IMPRESSION: Negative postoperative pelvic ultrasound. Electronically signed by: Aroldo Sutton MD (05/07/2019 5:50 PM) [id number]
== END | disposition home or self-care (01) ==
LOC: KCIC US 14:35
PROVIDERS: ATTEND Family Medicine
DX: R10.2 Pelvic and perineal pain (principal); Z90.710 Acquired absence of both cervix and uterus; Z90.721 Acquired absence of ovaries, unilateral
CPT/HCPCS: 76856

== ENCOUNTER → 2020-01-02 | Outpatient (CLI) | payer MEDICAID ==
[2018-07-14 11:30] VITALS: BP 126/65
--- NOTE | 2020-01-02 13:56 | RAD ---
Bilateral lower extremity venous doppler ultrasound History: Bilateral lower extremity edema Comparison: None Findings: Multiple grayscale, color, and duplex spectral analysis sonographic images were acquired of the bilateral lower extremity veins to evaluate for the presence of DVT. There is normal phasicity. Normal compression, color-flow, and augmentation is demonstrated from the bilateral common femoral to the popliteal veins. There is normal color flow of the proximal greater saphenous and profunda femoris veins. There is normal color flow of segments of the calf veins. Impression: 1. There is no evidence of deep venous thrombosis from the bilateral common femoral to the popliteal veins. Electronically signed by: Juan Cool MD (01/02/2020 1:53 PM) [id number]
== END | disposition home or self-care (01) ==
LOC: US 11:53
PROVIDERS: ATTEND Nurse Practitioner Gerontology
DX: R60.0 Localized edema (principal)
CPT/HCPCS: 93970

== ENCOUNTER → 2020-05-01 | Outpatient (CLI) | payer MEDICAID ==
[2018-07-14 11:30] VITALS: BP 126/65
--- NOTE | 2020-05-02 09:06 | RAD ---
US RIGHT LOWER EXTREMITY ARTERIAL DUPLEX EVAL 05/01/2020 2:39 PM INDICATION: Right leg pain COMPARISON: None available. TECHNIQUE: Sonographic evaluation of the right lower extremity arterial system was performed utilizi ng grayscale, color Doppler and spectral waveform analysis. FINDINGS: Biphasic waveforms identified throughout the right lower extremity. Common femoral artery: 174 cm/s Profunda artery: 86 cm/s Superficial femoral artery, proximal: 115 cm/s Superficial femoral artery, mid: 206 cm/s Superficial femoral artery, distal: 107 cm/s Popliteal artery: 153 cm/s Posterior tibial artery: 45-84 cm/s Anterior tibial artery: 121 cm/s Peroneal artery: 56 cm/s Dorsalis pedis artery: 122 cm/s IMPRESSION: Triphasic waveforms throughout the right lower extremity may reflect mild peripheral arterial disease . Focal increased velocity involving the mid superficial femoral artery could reflect a focal stenosi s. Electronically signed by: Anais Duncan MD (05/02/2020 9:04 AM) [id number]
== END ==
LOC: US 14:39
PROVIDERS: ATTEND Family Medicine
DX: L97.909 Non-pressure chronic ulcer of unspecified part of unspecified lower leg with unspecified severity (principal); M79.604 Pain in right leg
CPT/HCPCS: 93926

== ENCOUNTER → 2020-10-16 | Outpatient (CLI) | payer MEDICAID ==
[2018-07-14 11:30] VITALS: BP 126/65
[~2020-10-16] MED LIST changes: +IOHEXOL 240 MG/ML 50ML VIAL. PO ONE; +IOHEXOL 300 MG/ML 100ML VIAL. IV ONE; -LISI-334 PO; +LISI10TA16 PO; -LISI10TA2 PO; +LISI20TA18 PO
--- NOTE | 2020-10-16 15:33 | KCIC ---
EXAM: Abdomen and pelvis CT with intravenous contrast. HISTORY: Epigastric pain. Weight loss. TECHNIQUE: Computed tomographic images of the abdomen and pelvis were obtained following the administ ration of intravenous contrast. Multiplanar reformatting was performed. *One or more of the following individualized dose reduction techniques were utilized for this examina tion: 1. Automated exposure control. 2. Adjustment of the mA and/or kV according to patient size. 3. Use of iterative reconstruction technique. COMPARISON: 01/03/2018. FINDINGS: Evaluation of the lower thorax demonstrates a 5 mm nodule within the right lower lobe. No h epatic lesion is seen. The gallbladder is absent. There is a multiloculated cystic lesion involving t he pancreatic neck and proximal pancreatic body, measuring approximately 4.7 cm in maximum dimension. The spleen is normal in size. The adrenal glands are unremarkable. There are tiny simple appearing r ight renal cysts. The appendix is absent. There is a moderate large amount of stool throughout the colon. There is sigm oid diverticulosis. There is no convincing diverticulosis. There is no bowel obstruction. There are nonspecific lymph nodes within the retroperitoneum and mesentery. There is heavily calcifie d and vascular plaque involving the aorta and aortic branch vessels. There is soft tissue prominence superior to a reported vaginal cuff status post hysterectomy, likely due to the cervix. There are sma ll cysts and coarse calcifications along the right aspect of the cervix which appear to be ovarian. T here are degenerative changes involving the spine. There is no suspicious or acute osseous finding. IMPRESSION: 1. Distal colonic diverticulosis without diverticulitis. There is moderate colonic stool. Correlate f or constipation. 2. Small right renal cysts. Follow-up is not routinely performed for simple cysts. 3. Stable multiloculated cystic lesion involving the pancreas. The long-term stability favors irregul ar ductal dilatation related to prior pancreatitis or a low-grade cystic neoplasms such as side branc h intraductal papillary mucinous neoplasms. MRI/MRCP can be performed for better characterization. 4. Stable cystic structure with coarse calcifications within the right adnexa, likely ovarian given a history of unilateral oophorectomy. The interval stability favors benignity. However, given the post menopausal status the patient, pelvic sonography is recommended for characterization. Electronically signed by: Eunice Perez MD (10/16/2020 3:30 PM) [id number]
== END ==
LOC: KCIC CT 12:21
PROVIDERS: ATTEND Internal Medicine Gastroenterology
DX: K57.30 Diverticulosis of large intestine without perforation or abscess without bleeding (principal); N28.1 Cyst of kidney, acquired; K59.00 Constipation, unspecified; N95.9 Unspecified menopausal and perimenopausal disorder; R91.1 Solitary pulmonary nodule; R59.9 Enlarged lymph nodes, unspecified; I70.0 Atherosclerosis of aorta; M47.817 Spondylosis without myelopathy or radiculopathy, lumbosacral region; R63.4 Abnormal weight loss; Z90.710 Acquired absence of both cervix and uterus; Z87.19 Personal history of other diseases of the digestive system; Z90.49 Acquired absence of other specified parts of digestive tract; Z90.721 Acquired absence of ovaries, unilateral
CPT/HCPCS: 74177; Q9966; Q9967

== ENCOUNTER → 2020-10-30 | Outpatient (CLI) | payer MEDICAID ==
[2018-07-14 11:30] VITALS: BP 126/65
[~2020-10-30] MED LIST changes: -IOHEXOL 240 MG/ML 50ML VIAL. PO ONE; -IOHEXOL 300 MG/ML 100ML VIAL. IV ONE
== END ==
LOC: LAB 09:31
PROVIDERS: ATTEND Internal Medicine Gastroenterology
DX: K86.9 Disease of pancreas, unspecified (principal)
CPT/HCPCS: 36415; 86301

== ENCOUNTER → 2020-10-30 | Outpatient (CLI) | payer MEDICAID ==
[2018-07-14 11:30] VITALS: BP 126/65
--- NOTE | 2020-10-30 16:05 | RAD ---
EXAMINATION: MRI and MRCP abdomen without IV contrast. INDICATION: Pancreatic lesion seen on CT exam. Further evaluation. TECHNIQUE: Multiplanar multisequence MRI and MRCP abdomen without IV contrast. 3-D coronal heavily T2 -weighted MRCP sequences obtained. COMPARISON: CT dated 10/16/2020 and multiple priors. FINDINGS: Normal morphology and size of the liver. Mild diffuse hepatic steatosis. Subcentimeter T2 hyperintens e lesion in right hepatic lobe, incompletely evaluated due to lack of IV contrast but most likely rep resenting simple cyst. Unremarkable spleen. Cholecystectomy. No biliary ductal dilatation. No adrenal nodule. No hydronephrosis in either kidney. Simple appearing cyst in the right kidney with the large st measures 0.8 cm. No bowel dilatation. No lymphadenopathy in the abdomen by size criteria. Normal c aliber abdominal aorta. No ascites. Unremarkable visualized lung bases. No suspicious osseous lesion. Diffuse pancreatic parenchymal atrophy. Irregular dilated main pancreatic duct at the body with multi ple internal septations, measures 2.2 cm in maximum diameter and 6 cm in length (series 5 image 23 an d series 5 image 64). The main pancreatic duct at the tail is irregular but normal in caliber. Few pr ominent to side branch ducts seen at the tail. The pancreatic duct at the head is normal in caliber a nd morphology. No discrete soft tissue component. These findings are worsening since December 2017. IMPRESSION: 1. Irregular dilated main pancreatic duct at the body with multiple internal septations measures 2.2 cm in maximum diameter and approximately 6 cm in length, minimally worsened since December 2017. The main pancreatic duct proximal and distal to this segment is normal in caliber. Findings suggesting o f main branch intraductal papillary mucinous neoplasm. Other differential consideration is sequelae o f chronic pancreatitis. No discrete soft tissue component. Further evaluation with EUS and fluid samp le is recommended. 2. Mild diffuse hepatic steatosis. Electronically signed by: Marci Smalls MD (10/30/2020 4:02 PM) [facility]
== END ==
LOC: MRI 08:30
PROVIDERS: ATTEND Internal Medicine Gastroenterology
DX: K86.89 Other specified diseases of pancreas (principal); K76.0 Fatty (change of) liver, not elsewhere classified; R93.89 Abnormal findings on diagnostic imaging of other specified body structures; Z90.49 Acquired absence of other specified parts of digestive tract
CPT/HCPCS: 74181

== ENCOUNTER → 2020-11-04 | Outpatient (CLI) | payer MEDICAID ==
[2018-07-14 11:30] VITALS: BP 126/65
[2020-11-04 13:50] LABS: ALBUMIN 3.2 g/dL (3.4-5.0); ALBUMIN/GLOBULIN RATIO 0.9 (1.0-1.7); CALCIUM 9.5 mg/dL (8.5-10.1); CREATININE 0.7 mg/dL (0.6-1.0); GFR 81.8; POTASSIUM 4.6 mmol/L (3.5-5.1); TOTAL BILIRUBIN 0.2 mg/dL (0.2-1.0); TOTAL PROTEIN 6.7 g/dL (6.4-8.2)
--- NOTE | 2020-11-04 16:32 | CARD ---
MR#: [id number] Date of Study: 11/04/2020 Ordering Physician: DUSTIN PAIGE, Referring Physician: DUSTIN PAIGE, Tech: Hetal Ness [facility] APPROVED REPORT EXAM: Two-dimensional and M-mode echocardiogram with Doppler and color Doppler. Other Information Quality : FairHR: 86bpm Rhythm : NSR INDICATION Murmur RISK FACTORS Hypertension Obesity Hyperlipidemia Diabetes 2D DIMENSIONS Left Atrium(2D)3.0 (1.6-4.0cm)IVSd0.8 (0.7-1.1cm) LVDd4.0 (3.9-5.9cm)LVOT Diameter2.5 (1.8-2.4cm) PWd1.0 (0.7-1.1cm)LVDs3.0 (2.5-4.0cm) FS (%) 25.7 %SV36.3 ml Aortic Valve AoV Peak Wilfredo.115.8cm/Jh Peak GR.5.4mmHg Mitral Valve MV E Aektfwoo34.8cm/sMV A Cejbnxvx929.1cm/s E/A Ratio0.5 TDI Lateral E' P. V16.06cm/sMedial E' P. V6.95cm/s E/Lateral E'3.9E/Medial E'9.0 LEFT VENTRICLE The left ventricle is normal size. There is normal left ventricular wall thickness. The left ventricu lar systolic function is normal and the ejection fraction is within normal range. Estimated ejection fraction 60%. There is normal LV segmental wall motion. RIGHT VENTRICLE The right ventricle is normal size. There is normal right ventricular wall thickness. The right ventr icular systolic function is normal. ATRIA The left atrium size is normal. The right atrium size is normal. The interatrial septum is intact wit h no evidence for an atrial septal defect or patent foramen ovale as noted on 2-D or Doppler imaging. AORTIC VALVE The aortic valve is normal in structure and function. Doppler and Color Flow revealed no significant aortic regurgitation. There is no significant aortic valvular stenosis. MITRAL VALVE The mitral valve is normal in structure and function. There is no evidence of mitral valve prolapse. There is no mitral valve stenosis. Doppler and Color Flow revealed trace mitral valve regurgitation. TRICUSPID VALVE The tricuspid valve is normal in structure and function. Doppler and Color Flow revealed no tricuspid valve regurgitation noted. There is no tricuspid valve prolapse or vegetation. There is no tricuspid valve stenosis. PULMONIC VALVE The pulmonary valve is normal in structure and function. Doppler and Color Flow revealed no pulmonic valvular regurgitation. GREAT VESSELS The aortic root is normal in size. The ascending aorta is normal in size. The IVC is normal in size a nd collapses >50% with inspiration. PERICARDIAL EFFUSION There is no evidence of significant pericardial effusion. Critical Notification Critical Value: No <Conclusion> The left ventricle is normal size. The left ventricular systolic function is normal and the ejection fraction is within normal range. E stimated ejection fraction 60%. There is normal LV segmental wall motion. Doppler and Color Flow revealed no significant aortic regurgitation. There is no significant aortic valvular stenosis. Doppler and Color Flow revealed trace mitral valve regurgitation. Doppler and Color Flow revealed no tricuspid valve regurgitation noted. Signed by : Yanick Theodore MD Electronically Approved : 11/04/2020 16:32:08
--- NOTE | 2020-11-05 18:34 | RAD ---
MR#: [id number] Date of Study: 11/04/2020 Ordering Physician: DUSTIN PAIGE, Referring Physician: DUSTIN PAIGE, Tech: Deyanira Main RDMS, RVT, RTR APPROVED REPORT Patient Location : OUT-PATIENT Indications Lower Extremity Pain : Bilateral Skin Changes Greater Saphenous Veins (GSV) Significant venous relux noted in the RIGHT GSV at the following levels : Superficial Femoral Junctio n, Proximal Thigh, Mid Thigh, Distal Thigh, Proximal Calf, Mid Calf, Distal Calf Significant venous relux noted in the LEFT GSV at the following levels : Superficial Femoral Junction , Proximal Thigh, Mid Thigh, Distal Thigh, Proximal Calf, Mid Calf, Distal Calf Findings Limited grayscale images of bilateral saphenofemoral junctions are grossly unremarkable. On the right side the great saphenous vein measures 6.7 mm in the left side the great saphenous vein measures 5.3 mm. Bilateral greater saphenous veins have notable reflux. On the right side it is 2.8 seconds and on th e left side it is 2 seconds. Bilateral lesser saphenous veins did not reveal any evidence of reflux. Critical Notification Critical Value: No <Conclusion> 1. Positive for reflux in the bilateral greater saphenous veins. Signed by : Dustin Paige, Electronically Approved : 11/05/2020 18:34:10
== END ==
LOC: US 12:05
PROVIDERS: ATTEND Internal Medicine Cardiovascular Disease
DX: I87.2 Venous insufficiency (chronic) (peripheral) (principal); R06.00 Dyspnea, unspecified
CPT/HCPCS: 36415; 80053; 83880; 93306; 93970

== ENCOUNTER → 2020-11-21 | Outpatient (CLI) | payer MEDICAID ==
[2018-07-14 11:30] VITALS: BP 126/65
[~2020-11-21] MED LIST changes: +REGADENOSON 0.4 MG/5 ML DISP.SYRIN. IV ONE
--- NOTE | 2020-11-21 14:01 | RAD ---
MR#: [id number] Date of Study: 11/21/2020 Ordering Physician: DUSTIN PAIGE, Referring Physician: HOLLIS PHELPS Tech: RT Kevin (R) (N) APPROVED REPORT Test Type: Pharmacological Stress Nurse/Tech: Sisi Davila R.N. Test Indications: [place] Cardiac History: copd, hyn, dm, former smoker Medications: see ehr Medical History: see ehr Resting ECG: SR Resting Heart Rate: 91 bpm Resting Blood Pressure: 134/63mmHg Pretest Chest Pain: No chest pain Nurse/Tech Notes lungs cta, heart tones regular Consent: The procedure was explained to the patient in lay terms. Informed consent was witnessed. Alex eout was entered into [employer]. History and Stress Test performed by LUZ MARINA Ledesma Pharm. Details Pharmacologic stress testing was performed using 0.4mg per 5ml of regadenoson given intravenously ove r 7-10 seconds. Stress Symptoms No chest pain or symptoms. POST EXERCISE Reason for Termination: Infusion complete Target HR: Yes Max HR: 117 bpm Max Blood Pressure: 152/59mmHg Chest Pain: No. Arrhythmia: No. ST Change: No. INTERPRETATION Stress EKG Conclusion: Baseline EKG showed sinus rhythm. No ischemic changes at peak stress. No arr hythmias. Imaging Protocol IMAGE PROTOCOL: Rest Tc-99m/stress Tc-99m 1 day Rest: Stress: Viability: Radiopharm.Tc99m IferpouwjIc83d Sestamibi Podg08pRn 32.4mCi Duration 15min. 10min. Img Date 11/21/2020 11/21/2020 Inj-Img Rbtq25isa. 60min. Rest Admin Site:IV - Right HandAdministrator:LUZ MARINA Ledesma Stress Admin Site: IV - Right HandAdministrator: LUZ MARINA Ledesma STRESS DATA End Diast. Vol.41.0mlAv. Heart Lztv563.0bpm End Syst. Vol.1.0mlCO Index BSA0.0L/min Myocardial Mass94.0gEject. Xsmfhawj56.0% Stress Rates Pk. Fill Rate1.43EDV/secLVtime Pk. Fill 99.10msec Pk. Empty Rate7.42ESV/secLVtime Pk. Eject99.12msec /3 Pk. Fill1.68EDV/sec Stress Scores Regional WT1.00Summed WT2.00 Regional WM0.00Summed WM1.00 Study quality was good. Left Ventricular size was Normal at Rest and Stress. Lung uptake was . Left Ventricular ejection fraction is >80%. The rest and stress images show normal perfusion, normal contraction and thickening. LV Perf. Quant 17 Seg. SSS1.00 17 Seg. SRS1.00 17 Seg. SDS0.00 Stress Defect Extent (% LAD)0.00Rest Defect Extent (% LAD)0.00Rev. Defect Extent (% LAD)0.00 Stress Defect Extent (% LCX) 11.30Rest Defect Extent (% LCX)7.50Rev. Defect Extent (% LCX)0.00 Stress Defect Extent (% RCA)0.00Rest Defect Extent (% RCA)0.00Rev. Defect Extent (% RCA)0.00 Stress Defect Extent (% LESLY)2.00Rest Defect Extent (% LESLY)1.70Rev. Defect Extent (% LESLY)0.00 Conclusion 1. Regadenoson cardioisotope stress test did not show any evidence of ischemia or infarct. 2. Normal left ventricular systolic function with ejection fraction calculated at >80%. 3. Low risk for cardiac events. Signed by : Francisco J Mazariegos, Electronically Approved : 11/21/2020 14:00:53
== END ==
LOC: NM 08:54
PROVIDERS: ATTEND Internal Medicine Cardiovascular Disease
DX: R06.00 Dyspnea, unspecified (principal); I10 Essential (primary) hypertension; J44.9 Chronic obstructive pulmonary disease, unspecified; E11.9 Type 2 diabetes mellitus without complications; Z87.891 Personal history of nicotine dependence
CPT/HCPCS: 78452; 93017; A9500; J2785

== ENCOUNTER → 2021-02-03 | Outpatient (CLI) | payer MEDICAID ==
[2018-07-14 11:30] VITALS: BP 126/65
[~2021-02-03] MED LIST changes: -REGADENOSON 0.4 MG/5 ML DISP.SYRIN. IV ONE
--- NOTE | 2021-02-03 14:13 | RAD ---
History: Reason: NAUSEA, VOMITING, GETS FULL QUICKLY AT MEALS / Spl. Instructions: / History: Procedure: The patient ate a standard meal containing 2 mCi Tc-99m sulfur colloid. Scintigraphic images of the a bderika were obtained. Counts were obtained. Findings: Retention percentages are as follows: 1 Hr: 46 2 Hr:31 3 Hr:23 4 Hr:15 Normal Retention Percentage Range is as Follows: 1 Hr: 35-91% 2 Hr: 2.7-60% 3 Hr: 0.5-28% 4 Hr: 0-10% Impression: Time to half emptying for solids is estimated at 57 minutes without evidence of gastroparesis. Gastr ic retention percentage is within normal limits at the 1, 2 and 3 are time point but slightly elevate d at 4 hours. Electronically signed by: Jerry Ferguson MD (02/03/2021 2:10 PM) [id number]
== END ==
LOC: NM 08:54
PROVIDERS: ATTEND Internal Medicine Gastroenterology
DX: R11.2 Nausea with vomiting, unspecified (principal)
CPT/HCPCS: 78264; A9541

== ENCOUNTER → 2021-02-25 | Outpatient (CLI) | payer MEDICAID ==
[2018-07-14 11:30] VITALS: BP 126/65
--- NOTE | 2021-02-25 11:55 | RAD ---
MRI BRAIN WO Date: 02/25/2021 9:57 AM Indication: PARKINSONS Comparison: None. Technique: Multiplanar multisequence MRI of the brain was performed without intravenous contrast usin g the standard protocol. Findings: No acute infarct. No acute or chronic hemorrhage. The ventricles are normal in size and configuration without hydrocephalus. Mild scattered FLAIR hyperintensities in the subcortical and periventricular deep white matter, a nonspecific finding, most commonly seen with chronic small vessel ischemic disea se. The scalp and calvarium are normal. The pituitary and sella are normal. No Chiari malformation. Mild incompletely characterized degenerative spondylosis of the visualized upper cervical spine. The visualized orbits and globes are normal. The visualized paranasal sinuses are clear. The mastoid air cells are clear. Normal flow voids within the vertebral, basilar, and internal carotid arteries indicating patency. IMPRESSION: 1. No acute infarct, hemorrhage, mass, or hydrocephalus. 2. Mild scattered FLAIR hyperintensities in the subcortical and periventricular deep white matter, a nonspecific finding, most commonly seen with chronic small vessel ischemic disease. 3. Mild age-appropriate cerebral volume loss. Electronically signed by: Juan Lemos MD (02/25/2021 11:53 AM) [id number]
== END ==
LOC: MRI 09:37
PROVIDERS: ATTEND Psychiatry & Neurology Neurology with Special Qualifications in Child Neurology
DX: G93.89 Other specified disorders of brain (principal); G20 Parkinson's disease
CPT/HCPCS: 70551

== ENCOUNTER 2021-06-06 21:08 | Inpatient (IN) | payer MEDICAID ==
[~2021-06-06] VITALS: Ht 152.4 cm; Wt 68.0 kg
[2021-06-06 22:28] LABS: BASO # 0.1 x10^3/uL (0.0-0.2); BASO % 1 % (0-3); EOS % 0 % (0-3); HEMATOCRIT 31.8 % (36.0-47.0); HEMOGLOBIN 9.4 g/dL (12.0-15.5); LYMPH % 7 % (24-48); MEAN CORPUSCULAR HEMOGLOBIN 21 pg (25-35); MEAN CORPUSCULAR HGB CONC 30 g/dL (31-37); MEAN CORPUSCULAR VOLUME 72 fL (79-100); MONO # 1.2 x10^3/uL (0.0-1.1); MONO % 8 % (0-9); NEUT # 12.7 x10^3/uL (1.8-7.7); NEUT % 85 % (31-73); PLATELET COUNT 325 x10^3/uL (140-400); RED BLOOD COUNT 4.41 x10^6/uL (3.50-5.40); RED CELL DISTRIBUTION WIDTH 17.6 % (11.5-14.5)
--- NOTE | 2021-06-06 22:29 | PHYS DOC ---
Past Medical History Past Medical History: Diabetes-Type I Additional Past Medical Histor: PARKINSON Past Surgical History: No Surgical History Additional Past Surgical Histo: CYST REMOVAL ON OVARY Smoking Status: Former Smoker Alcohol Use: None General Adult EDM: Chief Complaint: TRAUMA ALERT HPI: HPI: 75-year-old female past medical history of Parkinson's and insulin-dependent diabetes, presents the ED as a trauma alert, with her biological daughter who elects to translate (technical solutions consultant services were offered), presents the ED after patient fell down on 7 wooden steps onto a hard tile surface just prior to ED arrival. Patient was found down lying on her right side, head had hit a door. Family does not suspect any loss of consciousness reports patient is very unsteady on her feet due to her Parkinson's. Patient is not on any anticoagulants. Unknown last tetanus. Patient complains of right upper chest wall pain and right scapular pain. Review of Systems: Review of Systems: Constitutional: Denies fever or chills. [] Eyes: Denies change in visual acuity. [] HENT: Denies nasal congestion or sore throat. [] Respiratory: Denies cough or shortness of breath. [] Cardiovascular: Denies palpitations or edema. [] GI: Denies abdominal pain, nausea, vomiting, bloody stools or diarrhea. [] : Denies saddle anesthesia or incontinence Musculoskeletal: Denies flank pain or joint pain. [] Integument: Denies diaphoresis or blistering lesions Neurologic: Denies headache, midline neck pain, focal weakness or sensory changes. [] Endocrine: Denies polyuria or polydipsia. [] Lymphatic: Denies swollen glands. [] Psychiatric: Denies depression or anxiety. [] Heart Score: C/O Chest Pain: Yes HEART Score for Chest Pain: HEART Score for Chest Pain Response (Comments) Value History Slighlty/Non-Suspicious 0 ECG Nonspecific Repolarizatio 1 Age > 65 2 Risk Factors >3 Risk Factors or Hx CAD 2 Troponin < Normal Limit 0 Total 5 Risk Factors: Risk Factors: DM, Current or recent (<one month) smoker, HTN, HLP, family history of CAD, obesity. Risk Scores: Score 0 - 3: 2.5% MACE over next 6 weeks - Discharge Home Score 4 - 6: 20.3% MACE over next 6 weeks - Admit for Clinical Observation Score 7 - 10: 72.7% MACE over next 6 weeks - Early Invasive Strategies Allergies: Allergies: Allergies Coded Allergies Type Severity Reaction Last Updated Verified No Known Drug Allergies 06/06/21 No Physical Exam: PE: Constitutional: Well developed, well nourished, no acute distress, non-toxic appearance. HENT: Normocephalic, atraumatic, no septal hematoma, no hemotympanum, no oral bleeding Eyes: Pupils equal and reactive, EOMI, conjunctiva normal, no discharge, no raccoon eyes Neck: Normal range of motion, supple, no midline neck pain Cardiovascular: S1/2 present, regular rhythm Lungs & Thorax: Speaking in full sentences, bilateral equal chest rise, no tachypnea or increased work of breathing, no palpable lower rib tenderness, does report right anterior rib tenderness over ribs 1 through 4-no visible flail chest, no chest wall contusions seen Abdomen: soft, no tenderness, no hip tenderness, obese with no tenderness Skin: Warm, dry, muscle contusions-see extremities Back: Reports midline upper thoracic tenderness-no palpable step-offs, no CVA tenderness, painful proximal right scapula Extremities: Superficial skin abrasion over her distal leg, significant ecchymosis over right dorsal forearm, bruising noted over right thenar eminence and left dorsal second MCP joint, reports no pain to both elbows or shoulders, no cyanosis, no lower extremity edema, full range of motion of both legs, very small abrasion over left knee anterior knee, no focal knee/fibular head/ankle tenderness, equal radial/DP and PT pulses Neurologic: Alert and oriented X 3, normal motor function, normal sensory function, no focal deficits noted, GCS 15 Psychologic: No agitation, calm mood Current Patient Data: Vital Signs: Vital Signs Date Time Temp Pulse Resp B/P (MAP) Pulse Ox O2 Delivery O2 Flow Rate FiO2 06/06/21 22:03 98.0 98 18 163/70 (101) 95 98.0 EKG: EKG: Dysrhythmia 95 bpm, no ST ration, normal intervals, Q3, T wave inversion lead III, no ST elevation ST depression Radiology/Procedures: Radiology/Procedures: IMAGING REPORT Signed PATIENT: RAJIV BARRERAACCOUNT: [id number] : 1945 LOCATION: ER AGE: 75 SEX: F EXAM STATUS: REG ER ORD. PHYSICIAN: VINCENT RIVERA DO REASON: right scapualr fracture, OMNI 300 60 ML IV PROCEDURE: CT CHEST ABD PELVIS W/CONTRAST PQRS Compliance Statement: One or more of the following individualized dose reduction techniques were utilized for this examination: 1. Automated exposure control 2. Adjustment of the mA and/or kV according to patient size 3. Use of iterative reconstruction technique CT LUMBAR SPINE RECONSTRUCTION, CT THORACIC SPINE RECONSTRUCT, CT CHEST+ABD+PELVIS W 06/06/2021 11:01 PM INDICATION: Right scapular fracture COMPARISON: None available TECHNIQUE: Multiple axial CT images of the chest, abdomen and pelvis were obtained after the intravenous administration of Isovue-370. Coronal and sagittal reformats are provided. 2-D reconstructions of the thoracic and lumbar spine were obtained. FINDINGS: Thyroid gland is normal in appearance. There are no pathologically enlarged axillary, mediastinal or hilar lymph nodes. Heart size is within normal limits. Thoracic aorta is normal in course and caliber. There is no significant pericardial effusion. Thoracic esophagus is normal in appearance. Anterior chest wall appears intact. Three-vessel coronary artery vascular calcifications are present. Moderate calcified atheromatous plaque is identified along the thoracic aorta There is subpleural groundglass opacity at the posterior right upper lobe which may represent contusive change. Moderate centrilobular pulmonary emphysema. There is a solid noncalcified pulmonary nodule at the right lung base measuring 5 mm (series 2, image 45). No pleural effusions, pulmonary vascular congestion or pneumothorax. The clavicles appear intact. Left scapula is intact. There may be a nondisplaced fracture involving the posterior right third rib. There is a minimally displaced fracture of the lateral right fourth rib the acromioclavicular joint is well aligned. Glenohumeral joint is well aligned. There is a comminuted fracture involving the scapular body with involvement of the medial border, right infraspinous fossa and inferior angle. Liver, spleen, adrenal glands are normal in appearance. There is dilatation of main pancreatic duct measuring up to 8 mm. There is atrophy of the head, neck and body of pancreas with relative preservation the tail the pancreas. May be a cystic lesion within the body of pancreas measuring 3.6 x 2.2 cm (series 4, image 28). Further characterization with MRCP with and without contrast would be of benefit. Gallbladder surgically absent. Abdominal aorta is normal in course and caliber with dense calcified atheromatous plaque. No pathologically enlarged lymph nodes are identified in abdomen and pelvis. There is no free fluid or free intraperitoneal air. Small large bowel are normal in appearance. No bowel obstruction or inflammation. Appendix is not definitively visualized. Few nonenlarged lymph nodes are identified within the right lower quadrant abdomen measuring up to 6 mm (series 4, image 56). Urinary bladder is within normal limits given degree of distention. The kidneys enhance symmetrically. There is no suspicious renal mass . There is no hydronephrosis. There are no suspected calculi within the kidneys, ureters or urinary bladder. Simple cyst identified in the interpolar right kidney measuring 9 mm. No suspicious pelvic mass. Uterus is normal in appearance. No suspicious adnexal mass. Small fat-containing infraumbilical ventral hernia measuring 1.6 cm. Superior and inferior pubic rami are intact. Iliac bones are intact. No sacral fractures identified. Coccyx is intact. Alignment of thoracic spine is normal. Spinous processes are intact. Disc heights are maintained. Mild anterior marginal osteophytosis. No displaced sternal fracture. Vertebral body heights are maintained. No acute compression fracture is identified. Alignment of the lumbar spine is intact. Mild disc height loss L5-S1. Spinous processes are intact. IMPRESSION: 1. There is a comminuted right scapular fracture without involvement of the right acromioclavicular glenohumeral joints. 2. Posterior right third and lateral right fourth rib fractures. 3. Minimal contusive change identified in the posterior subpleural right upper lobe. 4. There is a solid noncalcified pulmonary nodule measuring 5 mm in the right lower lobe. Fleischner guidelines for incidentally detected pulmonary nodules suggests no routine follow-up for low risk patients and optional CT at 12 months for high risk patients with solid noncalcified pulmonary nodules less than 6 mm in size. 5. There is a cystic lesion within the body of the pancreas measuring 3.6 x 2.2 cm. Further evaluation with MRCP with and without contrast versus endoscopic ultrasound is recommended. There is pancreatic ductal dilatation. Cystic neoplasm remains a differential consideration. 6. No acute fracture or malalignment of the thoracic and lumbar spine. Electronically signed by: Kd Horne MD (06/06/2021 11:48 PM) [facility] DICTATED and SIGNED BY: KD HORNE MD DATE: 06/06/21 [id number] 0 IMAGING REPORT Signed PATIENT: RAJIV BARRERAACCOUNT: [id number] : 1945 LOCATION: ER AGE: 75 SEX: F EXAM STATUS: REG ER ORD. PHYSICIAN: VINCENT RIVERA DO REASON: chest pain/scapular pain, s/p fall down 7 steps PROCEDURE: CT HEAD AND CERVICAL SPINE WO EXAM: Head CT without contrast, cervical spine CT without contrast; chest CT without contrast. HISTORY: Fall. Pain. TECHNIQUE: Computed tomographic images of the head, cervical spine and chest were obtained without contrast. *One or more of the following individualized dose reduction techniques were utilized for this examination: 1. Automated exposure control. 2. Adjustment of the mA and/or kV according to patient size. 3. Use of iterative reconstruction technique. COMPARISON: None. FINDINGS: Head: There is no acute hemorrhage. There is no mass effect or midline shift. There is no hydrocephalus. There is mild cerebral volume loss. The burnett-white matter differentiation pattern is intact. There is focal mucosal thickening involving the posterior left ethmoid and sphenoid sinuses. The mastoid air cells are clear. There is no suspicious calvarial lesion. Cervical spine: There is minimal degenerative or positional listhesis at the mid cervical levels. There is multilevel endplate remodeling and facet arthropathy. There is no suspicious osseous lesion. There is no acute fracture. The combination of degenerative changes results in mild to moderate right foraminal stenosis at C3-C4 and mild left foraminal stenosis at C4-C5. There is calcified atherosclerotic plaque involving the carotid bifurcations. Chest: The heart is normal in size. There is coronary artery calcification. There is aortic and aortic great vessel calcified atherosclerotic plaque. There is no lymphadenopathy. There is no pneumothorax or pleural effusion. There is minimal posterior dependent atelectasis. There is emphysema. There is a 5 mm nodule within the right lower lobe (series 3, image 52). There is a 7 mm nodule abutting the pleura of the medial right lung apex (series 3, image 19). There is a 3 mm nodule within the lateral left upper lobe (series 3, image 29). There is adjacent 2 mm groundglass pleural-based nodular opacity within the lateral left upper lobe (series 3, image 32). There is no acute finding involving the upper abdomen. The spleen is upper normal in size. There is no acute vertebral fracture. There is degenerative change throughout the thoracic spine. There are minimally displaced acute fractures at the anterior right third and fourth and fifth ribs. There is a comminuted fracture of the scapular body. There is moderate left glenohumeral and mild bilateral acromioclavicular joint osteoarthritis. IMPRESSION: 1. Comminuted right scapular body fracture. 2. Mildly displaced anterior right third, fourth and fifth rib fractures. 3. Multiple pulmonary nodules measuring up to 7 mm. Follow-up is recommended in one year to confirm benignity. 4. Pulmonary emphysema. 5. No acute intracranial finding or evidence of acute cervical spine trauma. 6. Degenerative change involving the cervical spine, resulting in stenosis at the aforementioned levels. 7. Mild cerebral volume loss. Electronically signed by: Eunice Weaver MD (06/06/2021 10:49 PM) [facility] DICTATED and SIGNED BY: EUNICE WEAVER MD DATE: 06/06/21 [id number] 0 IMAGING REPORT Signed PATIENT: RAJIV BARRERAACCOUNT: [id number] : 1945 LOCATION: ER AGE: 75 SEX: F EXAM STATUS: REG ER ORD. PHYSICIAN: VINCENT RIVERA DO REASON: fall down 7 steps, knee pain PROCEDURE: PELVIS XR PELVIS 1-2V 06/06/2021 11:20 PM INDICATION: Fall down 7 steps, knee pain COMPARISON: CT chest, abdomen and pelvis 06/06/2021 TECHNIQUE: AP view the abdomen and pelvis are obtained. FINDINGS/ IMPRESSION: There is no free intraperitoneal air. There is no portal venous gas. No pneumatosis coli. Cholecystectomy changes are present. There are no dilated loops of small or large bowel. There are no differential air-fluid levels. There is no organomegaly. No suspicious calcifications are identified along the expected course of the genitourinary tract. No suspicious osseous abnormality is identified. Limited evaluation of the sacrum due to overlying bowel gas. Electronically signed by: Kd Horne MD (06/06/2021 11:27 PM) [facility] and SIGNED BY: KD HORNE MD DATE: 06/06/21 [id number] 0 IMAGING REPORT Signed PATIENT: RAJIV BARRERAACCOUNT: [id number] : 1945 LOCATION: ER AGE: 75 SEX: F EXAM STATUS: REG ER ORD. PHYSICIAN: VINCENT RIVERA DO REASON: Taruma PROCEDURE: HAND BILAT 3V XR HAND 3 VIEWS 06/06/2021 11:37 PM INDICATION: Trauma COMPARISON: None available. TECHNIQUE: 3 views of the right hand and 3 views the left hand are provided. FINDINGS/ IMPRESSION: There is no acute fracture or dislocation. There is advanced osteoarthrosis of the distal interphalangeal joints of the right third and fourth distal interphalangeal joints. Moderate osteophytosis of the distal second and fifth interphalangeal joints. There is severe osteoarthrosis of the second, third and fourth distal interphalangeal joints of the left hand. Mild osteoporosis of the first and carpometacarpal joints of the bilateral hands. Bone mineralization is within normal limits. Regional soft tissues are within normal limits. There is no soft tissue gas or osseous erosion. No radiopaque foreign body. Electronically signed by: Kd Horne MD (06/07/2021 12:15 AM) [facility] DICTATED and SIGNED BY: KD HORNE MD DATE: 06/07/21 [id number] 0 IMAGING REPORT Signed PATIENT: RAJIV BARRERAACCOUNT: [id number] : 1945 LOCATION: ER AGE: 75 SEX: F EXAM STATUS: REG ER ORD. PHYSICIAN: VINCENT RIVERA DO REASON: Trauma PROCEDURE: WRIST BILAT 2V XR WRIST 2 VIEWS 06/06/2021 11:37 PM INDICATION: Trauma COMPARISON: None available. TECHNIQUE: 2 views the right and 2 views left wrist are provided. FINDINGS/ IMPRESSION: There is no acute fracture or dislocation. Mild to moderate osteoarthrosis of the first carpometacarpal joint of the bilateral hands. Bone mineralization is within normal limits. Regional soft tissues are within normal limits. There is no soft tissue gas or osseous erosion. No radiopaque foreign body. Electronically signed by: Kd Horne MD (06/07/2021 12:34 AM) [facility] DICTATED and SIGNED BY: KD HORNE MD DATE: 06/07/[id number] 0 IMAGING REPORT Signed PATIENT: RAJIV BARRERAACCOUNT: [id number] : 1945 LOCATION: ER AGE: 75 SEX: F EXAM STATUS: REG ER ORD. PHYSICIAN: VINCENT RIVERA DO REASON: Taruma PROCEDURE: TIBIA FIBULA BILAT XR KNEE 1-2 VIEWS, XR TIBIA+FIBULA 06/06/2021 11:37 PM INDICATION: Trauma COMPARISON: None available. TECHNIQUE: 2 views of the right and 2 views of the left tibia and fibula are provided. 2 views of the knee are provided. FINDINGS/ IMPRESSION: Tibia and fibula: There is no acute fracture or dislocation. Joint spaces are maintained. Bone mineralization is within normal limits. Regional soft tissues are within normal limits. There is no soft tissue gas or osseous erosion. No radiopaque foreign body. Of note, images are not labeled and therefore right left evaluation is limited. Knee: Images not labeled, limiting evaluation. 2 views of a single knee are provided. No significant knee joint effusion. Vascular calculations are present. There is no acute fracture or dislocation. Joint spaces are maintained. Bone mineralization is within normal limits. Regional soft tissues are within normal limits. There is no soft tissue gas or osseous erosion. No radiopaque foreign body. Electronically signed by: Kd Horne MD (06/07/2021 12:33 AM) [facility] DICTATED and SIGNED BY: KD HORNE MD DATE: 06/07/[id number] 0 Course & Med Decision Making: Course & Med Decision Making Pertinent Labs and Imaging studies reviewed. (See chart for details) Concern for fall down steps in a Parkinson's patient not on any anticoagulants. Imaging c/w physical exam -concern for right scapular fracture, posterior right third and fourth rib fractures, right upper lobe pulmonary contusion, microcyti c anemia and medication adverse effect (patient with persistent vomiting after 0.5 mg of Dilaudid). Will admit for pain control, trauma surgery consultation and further medical management-would benefit from repeating hemoglobin. I have spoken with the patient and/or caregivers-daughter at bedside. I have explained the patient's condition, diagnosis and treatment plan based on the information available to me at this time. I have answered the patient's and/or caregivers questions and answered any concerns. The patient and/or caregivers have as good an understanding of the patient's diagnosis, condition and treatment plan as can be expected at this point. The patient has been stabilized within the capability of the emergency department. The patient will be transported for further care and management or will be moved to an observation or inpatient service. I have communicated with the staff or medical practitioner taking over this patient's care. Dragon Disclaimer: Last Disclaimer: This electronic medical record was generated, in whole or in part, using a voice recognition dictation system. Departure Departure Impression: Primary Impression: Fall Additional Impressions: Closed right scapular fracture Multiple rib fractures Microcytic anemia Medication adverse effect Right pulmonary contusion Disposition: ADMITTED INPATIENT Admitting Physician: GREGG (Dr. Rob) Condition: GUARDED Referrals: ELLIOTT DRAKE MD (PCP) VINCENT RIVERA DO Jun 06, 2021 22:29
[2021-06-06] MEDS ORDERED: DIPHTH,PERTUSS(ACELL),TET TOX 0.5 ML DISP.SYRIN. VAX IM ONE (22:30)
[2021-06-06 22:37] LABS: PROTHROMBIN TIME PATIENT 13.1 SEC (11.7-14.0)
[2021-06-06 22:40] LABS: CALCIUM 8.7 mg/dL (8.5-10.1); GFR 54.2; POTASSIUM 4.9 mmol/L (3.5-5.1)
[2021-06-06] MEDS ORDERED: HYDROmorphone 2 MG/ML INJ. IVP ONE (22:45)
--- NOTE | 2021-06-06 22:52 | RAD ---
EXAM: Head CT without contrast, cervical spine CT without contrast; chest CT without contrast. HISTORY: Fall. Pain. TECHNIQUE: Computed tomographic images of the head, cervical spine and chest were obtained without co ntrast. *One or more of the following individualized dose reduction techniques were utilized for this examina tion: 1. Automated exposure control. 2. Adjustment of the mA and/or kV according to patient size. 3. Use of iterative reconstruction technique. COMPARISON: None. FINDINGS: Head: There is no acute hemorrhage. There is no mass effect or midline shift. There is no hydrocephal us. There is mild cerebral volume loss. The burnett-white matter differentiation pattern is intact. Ther e is focal mucosal thickening involving the posterior left ethmoid and sphenoid sinuses. The mastoid air cells are clear. There is no suspicious calvarial lesion. Cervical spine: There is minimal degenerative or positional listhesis at the mid cervical levels. The re is multilevel endplate remodeling and facet arthropathy. There is no suspicious osseous lesion. Th ere is no acute fracture. The combination of degenerative changes results in mild to moderate right foraminal stenosis at C3-C4 and mild left foraminal stenosis at C4-C5. There is calcified atherosclerotic plaque involving the c arotid bifurcations. Chest: The heart is normal in size. There is coronary artery calcification. There is aortic and aorti c great vessel calcified atherosclerotic plaque. There is no lymphadenopathy. There is no pneumothora x or pleural effusion. There is minimal posterior dependent atelectasis. There is emphysema. There is a 5 mm nodule within the right lower lobe (series 3, image 52). There is a 7 mm nodule abutt ing the pleura of the medial right lung apex (series 3, image 19). There is a 3 mm nodule within the lateral left upper lobe (series 3, image 29). There is adjacent 2 mm groundglass pleural-based nodula r opacity within the lateral left upper lobe (series 3, image 32). There is no acute finding involving the upper abdomen. The spleen is upper normal in size. There is n o acute vertebral fracture. There is degenerative change throughout the thoracic spine. There are min imally displaced acute fractures at the anterior right third and fourth and fifth ribs. There is a co mminuted fracture of the scapular body. There is moderate left glenohumeral and mild bilateral acromi oclavicular joint osteoarthritis. IMPRESSION: 1. Comminuted right scapular body fracture. 2. Mildly displaced anterior right third, fourth and fifth rib fractures. 3. Multiple pulmonary nodules measuring up to 7 mm. Follow-up is recommended in one year to confirm b enignity. 4. Pulmonary emphysema. 5. No acute intracranial finding or evidence of acute cervical spine trauma. 6. Degenerative change involving the cervical spine, resulting in stenosis at the aforementioned leve ls. 7. Mild cerebral volume loss. Electronically signed by: Eunice Perez MD (06/06/2021 10:49 PM) [facility]
[2021-06-06 22:56] LABS: ALBUMIN 2.9 g/dL (3.4-5.0); ALBUMIN/GLOBULIN RATIO 0.7 (1.0-1.7); TOTAL BILIRUBIN 0.4 mg/dL (0.2-1.0)
[2021-06-06] MEDS ORDERED: CONTRAST GIVEN. MC PRN (23:15)
[2021-06-06] MEDS ORDERED: IOHEXOL 300 MG/ML 100ML VIAL. IV ONE (23:15)
--- NOTE | 2021-06-06 23:30 | RAD ---
XR PELVIS 1-2V 06/06/2021 11:20 PM INDICATION: Fall down 7 steps, knee pain COMPARISON: CT chest, abdomen and pelvis 06/06/2021 TECHNIQUE: AP view the abdomen and pelvis are obtained. FINDINGS/ IMPRESSION: There is no free intraperitoneal air. There is no portal venous gas. No pneumatosis coli. Cholecystec andres changes are present. There are no dilated loops of small or large bowel. There are no differential air-fluid levels. There is no organomegaly. No suspicious calcifications are identified along the expected course of the genitourinary tract. No suspicious osseous abnormality is identified. Limited evaluation of the sacrum due to overlying bowel gas. Electronically signed by: Anais Duncan MD (06/06/2021 11:27 PM) MEMO
[2021-06-06 23:31] LABS: % BANDS 5 % (0-9); % EOS 1 % (0-5); % LYMPHS 12 % (24-48); % MONOS 4 % (0-10); % SEGS 78 % (35-66); ANISOCYTOSIS SLIGHT; HYPOCHROMIA MOD; MICROCYTOSIS SLIGHT; OVALOCYTES FEW; PLT ESTIMATE ADEQUATE (ADEQUATE); POIKILOCYTOSIS SLIGHT
--- NOTE | 2021-06-06 23:31 | RAD ---
XR FOREARM_RIGHT 2 VIEWS 06/06/2021 11:20 PM INDICATION: Fall down 7 steps COMPARISON: None available. TECHNIQUE: 2 views the right forearm are provided FINDINGS/ IMPRESSION: Subtle cortical step-off involving the radial head could represent a radial head fracture. Correlate with point tenderness.. Joint spaces are maintained. Bone mineralization is within normal limits. Reg ional soft tissues are within normal limits. There is no soft tissue gas or osseous erosion. No radio paque foreign body. Vascular calcifications are present. Electronically signed by: Anais Duncan MD (06/06/2021 11:28 PM) MEMO
[2021-06-06] MEDS ORDERED: IV NORMAL SALINE 1000ML BAG 1,000 ML IV ONE ×2 (23:45)
--- NOTE | 2021-06-06 23:50 | RAD ---
PQRS Compliance Statement: One or more of the following individualized dose reduction techniques were utilized for this examinat ion: 1. Automated exposure control 2. Adjustment of the mA and/or kV according to patient size 3. Use of iterative reconstruction technique CT LUMBAR SPINE RECONSTRUCTION, CT THORACIC SPINE RECONSTRUCT, CT CHEST+ABD+PELVIS W 06/06/2021 11:01 PM INDICATION: Right scapular fracture COMPARISON: None available TECHNIQUE: Multiple axial CT images of the chest, abdomen and pelvis were obtained after the intraven ous administration of Isovue-370. Coronal and sagittal reformats are provided. 2-D reconstructions of the thoracic and lumbar spine were obtained. FINDINGS: Thyroid gland is normal in appearance. There are no pathologically enlarged axillary, mediastinal or hilar lymph nodes. Heart size is within normal limits. Thoracic aorta is normal in course and caliber. There is no significant pericardial e ffusion. Thoracic esophagus is normal in appearance. Anterior chest wall appears intact. Three-vessel coronary artery vascular calcifications are present. Moderate calcified atheromatous plaque is ident ified along the thoracic aorta There is subpleural groundglass opacity at the posterior right upper lobe which may represent contusi ve change. Moderate centrilobular pulmonary emphysema. There is a solid noncalcified pulmonary nodule at the right lung base measuring 5 mm (series 2, image 45). No pleural effusions, pulmonary vascular congestion or pneumothorax. The clavicles appear intact. Left scapula is intact. There may be a nondisplaced fracture involving t he posterior right third rib. There is a minimally displaced fracture of the lateral right fourth rib the acromioclavicular joint is well aligned. Glenohumeral joint is well aligned. There is a comminut ed fracture involving the scapular body with involvement of the medial border, right infraspinous fos sa and inferior angle. Liver, spleen, adrenal glands are normal in appearance. There is dilatation of main pancreatic duct m easuring up to 8 mm. There is atrophy of the head, neck and body of pancreas with relative preservati on the tail the pancreas. May be a cystic lesion within the body of pancreas measuring 3.6 x 2.2 cm ( series 4, image 28). Further characterization with MRCP with and without contrast would be of benefit . Gallbladder surgically absent. Abdominal aorta is normal in course and caliber with dense calcified atheromatous plaque. No patholog ically enlarged lymph nodes are identified in abdomen and pelvis. There is no free fluid or free intr aperitoneal air. Small large bowel are normal in appearance. No bowel obstruction or inflammation. Ap pendix is not definitively visualized. Few nonenlarged lymph nodes are identified within the right lo wer quadrant abdomen measuring up to 6 mm (series 4, image 56). Urinary bladder is within normal limi ts given degree of distention. The kidneys enhance symmetrically. There is no suspicious renal mass. There is no hydronephrosis. There are no suspected calculi within the kidneys, ureters or urinary abdelrahman dder. Simple cyst identified in the interpolar right kidney measuring 9 mm. No suspicious pelvic mass . Uterus is normal in appearance. No suspicious adnexal mass. Small fat-containing infraumbilical ellie tral hernia measuring 1.6 cm. Superior and inferior pubic rami are intact. Iliac bones are intact. No sacral fractures identified. Coccyx is intact. Alignment of thoracic spine is normal. Spinous processes are intact. Disc heights are maintained. Mil d anterior marginal osteophytosis. No displaced sternal fracture. Vertebral body heights are maintain ed. No acute compression fracture is identified. Alignment of the lumbar spine is intact. Mild disc h eight loss L5-S1. Spinous processes are intact. IMPRESSION: 1. There is a comminuted right scapular fracture without involvement of the right acromioclavicular g lenohumeral joints. 2. Posterior right third and lateral right fourth rib fractures. 3. Minimal contusive change identified in the posterior subpleural right upper lobe. 4. There is a solid noncalcified pulmonary nodule measuring 5 mm in the right lower lobe. Fleischner guidelines for incidentally detected pulmonary nodules suggests no routine follow-up for low risk pat ients and optional CT at 12 months for high risk patients with solid noncalcified pulmonary nodules l ess than 6 mm in size. 5. There is a cystic lesion within the body of the pancreas measuring 3.6 x 2.2 cm. Further evaluatio n with MRCP with and without contrast versus endoscopic ultrasound is recommended. There is pancreati c ductal dilatation. Cystic neoplasm remains a differential consideration. 6. No acute fracture or malalignment of the thoracic and lumbar spine. Electronically signed by: Anais Duncan MD (06/06/2021 11:48 PM) [facility]
[2021-06-07] MEDS ORDERED: ONDANSETRON PF 4 MG/2 ML VIAL. IVP ONE
--- NOTE | 2021-06-07 00:18 | RAD ---
XR HAND 3 VIEWS 06/06/2021 11:37 PM INDICATION: Trauma COMPARISON: None available. TECHNIQUE: 3 views of the right hand and 3 views the left hand are provided. FINDINGS/ IMPRESSION: There is no acute fracture or dislocation. There is advanced osteoarthrosis of the distal interphalan geal joints of the right third and fourth distal interphalangeal joints. Moderate osteophytosis of th e distal second and fifth interphalangeal joints. There is severe osteoarthrosis of the second, third and fourth distal interphalangeal joints of the left hand. Mild osteoporosis of the first and carpom etacarpal joints of the bilateral hands. Bone mineralization is within normal limits. Regional soft t issues are within normal limits. There is no soft tissue gas or osseous erosion. No radiopaque foreig n body. Electronically signed by: Anais Duncan MD (06/07/2021 12:15 AM) KATT
[2021-06-07] MEDS ORDERED: METOCLOPRAMIDE HCL 10 MG/2 ML VIAL. IVP ONE (00:30)
--- NOTE | 2021-06-07 00:36 | RAD ---
XR KNEE 1-2 VIEWS, XR TIBIA+FIBULA 06/06/2021 11:37 PM INDICATION: Trauma COMPARISON: None available. TECHNIQUE: 2 views of the right and 2 views of the left tibia and fibula are provided. 2 views of th e knee are provided. FINDINGS/ IMPRESSION: Tibia and fibula: There is no acute fracture or dislocation. Joint spaces are maintained. Bone minera lization is within normal limits. Regional soft tissues are within normal limits. There is no soft ti ssue gas or osseous erosion. No radiopaque foreign body. Of note, images are not labeled and therefor e right left evaluation is limited. Knee: Images not labeled, limiting evaluation. 2 views of a single knee are provided. No significant knee joint effusion. Vascular calculations are present. There is no acute fracture or dislocation. Stephanie int spaces are maintained. Bone mineralization is within normal limits. Regional soft tissues are wit hin normal limits. There is no soft tissue gas or osseous erosion. No radiopaque foreign body. Electronically signed by: Anais Duncan MD (06/07/2021 12:33 AM) MEMO
--- NOTE | 2021-06-07 00:36 | RAD ---
XR WRIST 2 VIEWS 06/06/2021 11:37 PM INDICATION: Trauma COMPARISON: None available. TECHNIQUE: 2 views the right and 2 views left wrist are provided. FINDINGS/ IMPRESSION: There is no acute fracture or dislocation. Mild to moderate osteoarthrosis of the first carpometacarp al joint of the bilateral hands. Bone mineralization is within normal limits. Regional soft tissues a re within normal limits. There is no soft tissue gas or osseous erosion. No radiopaque foreign body. Electronically signed by: Anais Duncan MD (06/07/2021 12:34 AM) KATT
--- NOTE | 2021-06-07 02:35 | EKG ---
[facility] [address] [place] [address] Test Date: 2021-06-07 Test Time: 00:08:34 Pat Name: RAJIV BARRERA Department: Room: 536 Gender: F Manager Assurance: : 1945 Requested By: VINCENT RIVERA Order Number: [id number] Reading MD: Francisco J Mazariegos Measurements Intervals [place] Rate: 95 P: 90 [place]: 184 QRS: 31 QRSD: 84 T: 22 QT: 350 QTc: 443 Interpretive Statements SINUS ARRHYTHMIA Electronically Signed On 06-07-2021 13:46:41 ENTRY MANAGER by Francisco J Mazariegos
[2021-06-07] MEDS ORDERED: PROCHLORPERAZINE 10 MG/2 ML VIAL. IV ONE (02:45)
[2021-06-07 03:00] VITALS: BP 137/55
[2021-06-07 07:00] VITALS: BP 122/45
[2021-06-07] MEDS ORDERED: hydrALAZINE 20 MG/ML VIAL. IVP PRN (07:45)
[2021-06-07] MEDS ORDERED: ACETAMINOPHEN 325 MG TABLET. PO PRN (07:45)
[2021-06-07] MEDS ORDERED: DEXTROSE 50% 25 GM / 50ML DISP.SYRIN. IV PRN (07:45)
[2021-06-07] MEDS ORDERED: IV DEXTROSE 5% 250 ML BAG. IV PRN (07:45)
[2021-06-07] MEDS ORDERED: traMADol 50 MG TABLET PO PRN (07:45)
[2021-06-07] MEDS ORDERED: fentaNYL PF VIAL 100 MCG/2 ML VIAL IVP PRN (07:45)
[2021-06-07] MEDS ORDERED: guaiFENesin DM 200MG/20MG 10 ML SYRUP PO PRN (07:45)
[2021-06-07] MEDS ORDERED: MAGNESIUM HYDROXIDE 2,400 MG/30 ML ORAL.SUSP. PO PRN (08:00)
[2021-06-07] MEDS ORDERED: SENNOSIDES/DOCUSATE 8.6/50MG TABLET. PO PRN (08:00)
[2021-06-07] MEDS: INSULIN LISPRO 300 UNITS/3 ML VIAL. SQ SCH ×3 (08:00→17:48)
--- NOTE | 2021-06-07 08:06 | PDOC1 ---
History and Physical Date of Admission Date of Admission DATE: 06/07/21 TIME: 07:42 Identification/Chief Complaint Chief Complaint Fall at home Source Source: Chart review, Patient History of Present Illness History of Present Illness Ms Ocampo is a 75yo female who is [place]-speaking only with PMHx DM2, HTN, HLD, Parkinsons who comes to ED after a fall down 7-9 stairs. Her daughter describes the story about 2029 she fell backwards down about 7 stairs and landed on her right side did not lose consciousness but noted her right shoulder did not appear normal and she was not able to move her right arm. Her pain was minimally relieved with a dose of Aleve. Patient complains of right upper back pain and difficulty lifting up her right arm no loss of sensation no numbness or tingling. She complains of right facial pain where there is bruising bilateral hand bruising and swelling and a skin tear on her right anterior tibia. She is fully vaccinated against COVID-19, does not smoke (quit in 2018), does not drink or use illicit drugs has no recent travel or sick contacts. WBC 15, Hb 9.4, MCV 72, platelets 325, INR 1, PTT 37, NA 136, K4.9, BUN 23, CR 1, glucose 199, calcium 8.7, bilirubin 0.4, AST 14, ALT 10, alk phos 88, albumin 2.9, high-sensitivity troponin is 7. EKG. Sinus arrhythmia rate 95 bpm normal axis and intervals otherwise, QTC [address] segment elevations or T wave inversions. Found on trauma series imaging to have possible right scapular fracture posterior right third and fourth rib fractures, right upper lobe pulmonary contusion. Was given 0.5mg Dilaudid and subsequent episode of emesis. Unable to ambulated safely in ED, admitted for further care. Past Medical History Cardiovascular: HTN, Hyperlipidemia CENTRAL NERVOUS SYSTEM: Other (Parkinson disease) Endocrine: Diabetes Past Surgical History Past Surgical History: Appendectomy (01/04/2018), Cholecystectomy (07/14/2018), Cataract Removal Family History Family History: Diabetes, High Cholestrol, Hypertension Social History Smoke: Quit (2018) ALCOHOL: none Drugs: None Current Problem List Problem List Problems Medical Problems: (1) Closed right scapular fracture Status: Acute (2) Fall Status: Acute (3) Medication adverse effect Status: Acute (4) Microcytic anemia Status: Acute (5) Multiple rib fractures Status: Acute (6) Right pulmonary contusion Status: Acute Current Medications Current Medications Home meds: Lisinopril 40 mg daily carbidopa levodopa 84194 3 times daily Protonix 40 mg daily tizanidine 4 mg 1-2 tabs nightly as needed fluoxetine 10 mg daily rosuvastatin 20 mg daily Lantus 45 units nightly, lispro 3 times daily with meals Metformin 1000 mg twice daily Current Medications Diphtheria/ Tetanus/Acell Pertussis (Boostrix) 0.5 ml ONCE ONCE VAX IM Last administered on 06/06/21at 23:34; Start 06/06/21 at 22:30; Stop 06/06/21 at 22:31; Status DC Hydromorphone HCl (Dilaudid) 0.5 mg 1X ONCE IVP Last administered on 06/06/21at 23:31; Start 06/06/21 at 22:45; Stop 06/06/21 at 22:46; Status DC Iohexol (Omnipaque 300 Mg/ml) 60 ml 1X ONCE IV Last administered on 06/06/21at 23:26; Start 06/06/21 at 23:15; Stop 06/06/21 at 23:16; Status DC Info (CONTRAST GIVEN -- Rx MONITORING) 1 each PRN DAILY PRN MC SEE COMMENTS; Start 06/06/21 at 23:15; Stop 06/08/21 at 23:14 Sodium Chloride 1,000 ml @ 1,000 mls/hr 1X ONCE IV Last administered on 06/06/21at 23:57; Start 06/06/21 at 23:45; Stop 06/07/21 at 00:44; Status DC Sodium Chloride 1,000 ml @ 1,000 mls/hr 1X ONCE IV Last administered on 06/06/21at 23:58; Start 06/06/21 at 23:45; Stop 06/07/21 at 00:44; Status DC Ondansetron HCl (Zofran) 8 mg 1X ONCE IVP Last administered on 06/06/21at 23:55; Start 06/07/21 at 00:00; Stop 06/07/21 at 00:01; Status DC Metoclopramide HCl (Reglan Vial) 10 mg 1X ONCE IVP Last administered on 06/07/21at 00:25; Start 06/07/21 at 00:30; Stop 06/07/21 at 00:31; Status DC Prochlorperazine Edisylate (Compazine) 10 mg 1X ONCE IV Last administered on 06/07/21at 02:46; Start 06/07/21 at 02:45; Stop 06/07/21 at 02:46; Status DC Active Scripts Active Reported Percocet 5-325 Mg Tablet (Oxycodone/Acetaminophen) 1 Each Tablet 1-2 Tab PO PRN Q4HRS PRN Citalopram Hbr (Citalopram Hydrobromide) 20 Mg Tablet 1 Tab PO DAILY Lisinopril 10 Mg Tablet 1 Tab PO DAILY Ferrous Sulfate 325 Mg Tablet 1 Tab PO BID Atorvastatin Calcium 10 Mg Tablet 10 Mg PO HS Celebrex (Celecoxib) 200 Mg Capsule 200 Mg PO DAILY 30 Days Metformin Hcl 1,000 Mg Tablet 1,000 Mg PO BID Novolog (Insulin Aspart) 100 Unit/1 Ml Cartridge 15 Unit SQ TIDWMEALS Lantus Solostar (Insulin Glargine,Hum.rec.anlog) 100 Unit/1 Ml Insuln.pen 40 Unit SQ QHS Allergies Allergies: Coded Allergies: No Known Drug Allergies (Unverified , 06/06/21) ROS General: YES: Fatigue, Malaise; No: Chills, Night Sweats, Appetite, Other PSYCHOLOGICAL ROS: YES: Memory difficulties; No: Anxiety, Behavioral Disorder, Concentration difficultie, Decreased libido, Depression, Disorientation, Hallucinations, Hostility, Irritablity, Mood Swings, Obsessive thoughts, Physical abuse, Sexual abuse, Sleep disturbances, Suicidal ideation, Other Eyes: No Blurry vision, No Decreased vision, No Double vision, No Dry eyes, No Excessive tearing, No Eye Pain, No Itchy Eyes, No Loss of vision, No Photophobia, No Scotomata, No Uses contacts, No Uses glasses, No Other HEENT: No: Heacaches, Visual Changes, Hearing change, Nasal congestion, Nasal discharge, Oral lesions, Sinus pain, Sore Throat, Epistaxis, Sneezing, Snoring, Tinnitus, Vertigo, Vocal changes, Other ALLERGY AND IMMUNOLOGY: No: Hives, Insect Bite Sensitivity, Itchy/Watery Eyes, Nasal Congestion, Post Nasal Drip, Seasonal Allergies, Other Hematological and Lymphatic: No: Bleeding Problems, Blood Clots, Blood Transfusions, Brusing, Night Sweats, Pallor, Swollen Lymph Nodes, Other ENDOCRINE: No: Breast Changes, Galactorrhea, Hair Pattern Changes, Hot Flashes, Malaise/lethargy, Mood Swings, Palpitations, Polydipsia/polyuria, Skin Changes, Temperature Intolerance, Unexpected Weight Changes, Other Breast: No New/Changing Breast Lumps, No Nipple changes, No Nipple discharge, No Other Respiratory: No: Cough, Hemoptysis, Orthopnea, Pleuritic Pain, Shortness of breath, SOB with excertion, Sputum Changes, Stridor, Tachypnea, Wheezing, Other Cardiovascular: yes Chest Pain; No Palpitations, No Orthopnea, No Paroxysmal Noc. Dyspnea, No Edema, No Lt Headedness, No Other Gastrointestinal: Yes Nausea, Yes Vomiting; No Abdominal Pain, No Diarrhea, No Constipation, No Melena, No Hematochezia, No Other Genitourinary: No Dysuria, No Frequency, No Incontinence, No Hematuria, No Retention, No Discharge, No Urgency, No Pain, No Flank Pain, No Other, No , No , No , No , No , No , No Musculoskeletal: Yes Gait Disturbance, Yes Joint Pain, Yes Joint Stiffness; No Joint Swelling, No Muscle Pain, No Muscular Weakness, No Pain In:, No Swelling In:, No Other Neurological: No Behavorial Changes, No Bowel/Bladder ControlChng, No Confusion, No Dizziness, No Gait Disturbance, No Headaches, No Impaired Coord/balance, No Memory Loss, No Numbness/Tingling, No Seizures, No Speech Problems, No Tremors, No Visual Changes, No Weakness, No Other Skin: Yes Other (Right joe pain); No Dry Skin, No Eczema, No Hair Changes, No Lumps, No Mole Changes, No Mottling, No Nail Changes, No Pruritus, No Rash, No Skin Lesion Changes, No Acne Physical Exam General: Alert, Oriented X3, Cooperative, mild distress HEENT: Atraumatic, PERRLA, EOMI, Mucous membr. 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, right anterior chest wall tender, right joe tender) Skin: No rashes, Other (Right joe 4x8 abrasion, scant bleeding, clean) Neuro: Normal speech, Strength at 5/5 X4 ext, Normal tone, Sensation intact, Cranial nerves 3-12 NL, Reflexes 2+, Other (shuffling gait) Psych/Mental Status: Mental status NL, Mood NL Vitals Vitals Vital Signs Date Time Temp Pulse Resp B/P (MAP) Pulse Ox O2 Delivery O2 Flow Rate FiO2 06/07/21 03:00 97.6 86 20 137/55 (82) 94 97.6 06/07/21 02:44 Room Air Labs Labs Laboratory Tests Test 06/06/21 22:15 White Blood Count 15.0 x10^3/uL (4.0-11.0) Red Blood Count 4.41 x10^6/uL (3.50-5.40) Hemoglobin 9.4 g/dL (12.0-15.5) Hematocrit 31.8 % (36.0-47.0) Mean Corpuscular Volume 72 fL (79-100) Mean Corpuscular Hemoglobin 21 pg (25-35) Mean Corpuscular Hemoglobin Concent 30 g/dL (31-37) Red Cell Distribution Width 17.6 % (11.5-14.5) Platelet Count 325 x10^3/uL (140-400) Neutrophils (%) (Auto) 85 % (31-73) Lymphocytes (%) (Auto) 7 % (24-48) Monocytes (%) (Auto) 8 % (0-9) Eosinophils (%) (Auto) 0 % (0-3) Basophils (%) (Auto) 1 % (0-3) Neutrophils # (Auto) 12.7 x10^3/uL (1.8-7.7) Lymphocytes # (Auto) 1.0 x10^3/uL (1.0-4.8) Monocytes # (Auto) 1.2 x10^3/uL (0.0-1.1) Eosinophils # (Auto) 0.0 x10^3/uL (0.0-0.7) Basophils # (Auto) 0.1 x10^3/uL (0.0-0.2) Segmented Neutrophils % 78 % (35-66) Band Neutrophils % 5 % (0-9) Lymphocytes % 12 % (24-48) Monocytes % 4 % (0-10) Eosinophils % 1 % (0-5) Platelet Estimate Adequate (ADEQUATE) Hypochromasia Mod Poikilocytosis Slight Anisocytosis Slight Microcytosis Slight Ovalocytes Few Prothrombin Time 13.1 SEC (11.7-14.0) Prothromb Time International Ratio 1.0 (0.8-1.1) Activated Partial Thromboplast Time 37 SEC (24-38) Sodium Level 136 mmol/L (136-145) Potassium Level 4.9 mmol/L (3.5-5.1) Chloride Level 102 mmol/L (98-107) Carbon Dioxide Level 22 mmol/L (21-32) Anion Gap 12 (6-14) Blood Urea Nitrogen 23 mg/dL (7-20) Creatinine 1.0 mg/dL (0.6-1.0) Estimated GFR (Cockcroft-Gault) 54.2 BUN/Creatinine Ratio 23 (6-20) Glucose Level 199 mg/dL (70-99) Calcium Level 8.7 mg/dL (8.5-10.1) Total Bilirubin 0.4 mg/dL (0.2-1.0) Aspartate Amino Transf (AST/SGOT) 14 U/L (15-37) Alanine Aminotransferase (ALT/SGPT) 10 U/L (14-59) Alkaline Phosphatase 88 U/L (46-116) Troponin I High Sensitivity 7 ng/L (4-50) Total Protein 7.0 g/dL (6.4-8.2) Albumin 2.9 g/dL (3.4-5.0) Albumin/Globulin Ratio 0.7 (1.0-1.7) Laboratory Tests Test 06/06/21 22:15 White Blood Count 15.0 x10^3/uL (4.0-11.0) Red Blood Count 4.41 x10^6/uL (3.50-5.40) Hemoglobin 9.4 g/dL (12.0-15.5) Hematocrit 31.8 % (36.0-47.0) Mean Corpuscular Volume 72 fL (79-100) Mean Corpuscular Hemoglobin 21 pg (25-35) Mean Corpuscular Hemoglobin Concent 30 g/dL (31-37) Red Cell Distribution Width 17.6 % (11.5-14.5) Platelet Count 325 x10^3/uL (140-400) Neutrophils (%) (Auto) 85 % (31-73) Lymphocytes (%) (Auto) 7 % (24-48) Monocytes (%) (Auto) 8 % (0-9) Eosinophils (%) (Auto) 0 % (0-3) Basophils (%) (Auto) 1 % (0-3) Neutrophils # (Auto) 12.7 x10^3/uL (1.8-7.7) Lymphocytes # (Auto) 1.0 x10^3/uL (1.0-4.8) Monocytes # (Auto) 1.2 x10^3/uL (0.0-1.1) Eosinophils # (Auto) 0.0 x10^3/uL (0.0-0.7) Basophils # (Auto) 0.1 x10^3/uL (0.0-0.2) Segmented Neutrophils % 78 % (35-66) Band Neutrophils % 5 % (0-9) Lymphocytes % 12 % (24-48) Monocytes % 4 % (0-10) Eosinophils % 1 % (0-5) Platelet Estimate Adequate (ADEQUATE) Hypochromasia Mod Poikilocytosis Slight Anisocytosis Slight Microcytosis Slight Ovalocytes Few Prothrombin Time 13.1 SEC (11.7-14.0) Prothromb Time International Ratio 1.0 (0.8-1.1) Activated Partial Thromboplast Time 37 SEC (24-38) Sodium Level 136 mmol/L (136-145) Potassium Level 4.9 mmol/L (3.5-5.1) Chloride Level 102 mmol/L (98-107) Carbon Dioxide Level 22 mmol/L (21-32) Anion Gap 12 (6-14) Blood Urea Nitrogen 23 mg/dL (7-20) Creatinine 1.0 mg/dL (0.6-1.0) Estimated GFR (Cockcroft-Gault) 54.2 BUN/Creatinine Ratio 23 (6-20) Glucose Level 199 mg/dL (70-99) Calcium Level 8.7 mg/dL (8.5-10.1) Total Bilirubin 0.4 mg/dL (0.2-1.0) Aspartate Amino Transf (AST/SGOT) 14 U/L (15-37) Alanine Aminotransferase (ALT/SGPT) 10 U/L (14-59) Alkaline Phosphatase 88 U/L (46-116) Troponin I High Sensitivity 7 ng/L (4-50) Total Protein 7.0 g/dL (6.4-8.2) Albumin 2.9 g/dL (3.4-5.0) Albumin/Globulin Ratio 0.7 (1.0-1.7) Images Images CT CHEST ABD PELVIS W/CONTRAST PQRS Compliance Statement: One or more of the following individualized dose reduction techniques were utilized for this examination: 1. Automated exposure control 2. Adjustment of the mA and/or kV according to patient size 3. Use of iterative reconstruction technique CT LUMBAR SPINE RECONSTRUCTION, CT THORACIC SPINE RECONSTRUCT, CT CHEST+ABD+PELVIS W 06/06/2021 11:01 PM INDICATION: Right scapular fracture COMPARISON: None available TECHNIQUE: Multiple axial CT images of the chest, abdomen and pelvis were obtained after the intravenous administration of Isovue-370. Coronal and sagittal reformats are provided. 2-D reconstructions of the thoracic and lumbar spine were obtained. FINDINGS: Thyroid gland is normal in appearance. There are no pathologically enlarged axillary, mediastinal or hilar lymph nodes. Heart size is within normal limits. Thoracic aorta is normal in course and caliber. There is no significant pericardial effusion. Thoracic esophagus is normal in appearance. Anterior chest wall appears intact. Three-vessel coronary artery vascular calcifications are present. Moderate calcified atheromatous plaque is identified along the thoracic aorta There is subpleural groundglass opacity at the posterior right upper lobe which may represent contusive change. Moderate centrilobular pulmonary emphysema. There is a solid noncalcified pulmonary nodule at the right lung base measuring 5 mm (series 2, image 45). No pleural effusions, pulmonary vascular congestion or pneumothorax. The clavicles appear intact. Left scapula is intact. There may be a nondisplaced fracture involving the posterior right third rib. There is a minimally displaced fracture of the lateral right fourth rib the acromioclavicular joint is well aligned. Glenohumeral joint is well aligned. There is a comminuted fracture involving the scapular body with involvement of the medial border, right infraspinous fossa and inferior angle. Liver, spleen, adrenal glands are normal in appearance. There is dilatation of main pancreatic duct measuring up to 8 mm. There is atrophy of the head, neck and body of pancreas with relative preservation the tail the pancreas. May be a cystic lesion within the body of pancreas measuring 3.6 x 2.2 cm (series 4, image 28). Further characterization with MRCP with and without contrast would be of benefit. Gallbladder surgically absent. Abdominal aorta is normal in course and caliber with dense calcified athero matous plaque. No pathologically enlarged lymph nodes are identified in abdomen and pelvis. There is no free fluid or free intraperitoneal air. Small large bowel are normal in appearance. No bowel obstruction or inflammation. Appendix is not definitively visualized. Few nonenlarged lymph nodes are identified within the right lower quadrant abdomen measuring up to 6 mm (series 4, image 56). Urinary bladder is within normal limits given degree of distention. The kidneys enhance symmetrically. There is no suspicious renal mass. There is no hydronephrosis. There are no suspected calculi within the kidneys, ureters or urinary bladder. Simple cyst identified in the interpolar right kidney measuring 9 mm. No suspicious pelvic mass. Uterus is normal in appearance. No suspicious adnexal mass. Small fat-containing infraumbilical ventral hernia measuring 1.6 cm. Superior and inferior pubic rami are intact. Iliac bones are intact. No sacral fractures identified. Coccyx is intact. Alignment of thoracic spine is normal. Spinous processes are intact. Disc heights are maintained. Mild anterior marginal osteophytosis. No displaced sternal fracture. Vertebral body heights are maintained. No acute compression fracture is identified. Alignment of the lumbar spine is intact. Mild disc height loss L5-S1. Spinous processes are intact. IMPRESSION: 1. There is a comminuted right scapular fracture without involvement of the right acromioclavicular glenohumeral joints. 2. Posterior right third and lateral right fourth rib fractures. 3. Minimal contusive change identified in the posterior subpleural right upper lobe. 4. There is a solid noncalcified pulmonary nodule measuring 5 mm in the right lower lobe. Fleischner guidelines for incidentally detected pulmonary nodules suggests no routine follow-up for low risk patients and optional CT at 12 months for high risk patients with solid noncalcified pulmonary nodules less than 6 mm in size. 5. There is a cystic lesion within the body of the pancreas measuring 3.6 x 2.2 cm. Further evaluation with MRCP with and without contrast versus endoscopic ultrasound is recommended. There is pancreatic ductal dilatation. Cystic neoplasm remains a differential consideration. 6. No acute fracture or malalignment of the thoracic and lumbar spine. Electronically signed by: Kd Horne MD (06/06/2021 11:48 PM) [facility] DICTATED and SIGNED BY: KD HORNE MD DATE: 06/06/21 [id number] IMAGING REPORT Signed PATIENT: RAJIV BARRERAACCOUNT: [id number] : 1945 LOCATION: ER AGE: 75 SEX: F EXAM STATUS: REG ER ORD. PHYSICIAN: VINCENT RIVERA DO REASON: chest pain/scapular pain, s/p fall down 7 steps PROCEDURE: CT HEAD AND CERVICAL SPINE WO EXAM: Head CT without contrast, cervical spine CT without contrast; chest CT without contrast. HISTORY: Fall. Pain. TECHNIQUE: Computed tomographic images of the head, cervical spine and chest were obtained without contrast. *One or more of the following individualized dose reduction techniques were utilized for this examination: 1. Automated exposure control. 2. Adjustment of the mA and/or kV according to patient size. 3. Use of iterative reconstruction technique. COMPARISON: None. FINDINGS: Head: There is no acute hemorrhage. There is no mass effect or midline shift. There is no hydrocephalus. There is mild cerebral volume loss. The burnett-white matter differentiation pattern is intact. There is focal mucosal thickening involving the posterior left ethmoid and sphenoid sinuses. The mastoid air cells are clear. There is no suspicious calvarial lesion. Cervical spine: There is minimal degenerative or positional listhesis at the mid cervical levels. There is multilevel endplate remodeling and facet arthropathy. There is no suspicious osseous lesion. There is no acute fracture. The combination of degenerative changes results in mild to moderate right foraminal stenosis at C3-C4 and mild left foraminal stenosis at C4-C5. There is calcified atherosclerotic plaque involving the carotid bifurcations. Chest: The heart is normal in size. There is coronary artery calcification. There is aortic and aortic great vessel calcified atherosclerotic plaque. There is no lymphadenopathy. There is no pneumothorax or pleural effusion. There is minimal posterior dependent atelectasis. There is emphysema. There is a 5 mm nodule within the right lower lobe (series 3, image 52). There is a 7 mm nodule abutting the pleura of the medial right lung apex (series 3, image 19). There is a 3 mm nodule within the lateral left upper lobe (series 3, image 29). There is adjacent 2 mm groundglass pleural-based nodular opacity within the lateral left upper lobe (series 3, image 32). There is no acute finding involving the upper abdomen. The spleen is upper normal in size. There is no acute vertebral fracture. There is degenerative change throughout the thoracic spine. There are minimally displaced acute fractures at the anterior right third and fourth and fifth ribs. There is a co mminuted fracture of the scapular body. There is moderate left glenohumeral and mild bilateral acromioclavicular joint osteoarthritis. IMPRESSION: 1. Comminuted right scapular body fracture. 2. Mildly displaced anterior right third, fourth and fifth rib fractures. 3. Multiple pulmonary nodules measuring up to 7 mm. Follow-up is recommended in one year to confirm benignity. 4. Pulmonary emphysema. 5. No acute intracranial finding or evidence of acute cervical spine trauma. 6. Degenerative change involving the cervical spine, resulting in stenosis at the aforementioned levels. 7. Mild cerebral volume loss. Electronically signed by: Eunice Weaver MD (06/06/2021 10:49 PM) [facility] DICTATED and SIGNED BY: EUNICE WEAVER MD DATE: 06/06/21 [id number] IMAGING REPORT Signed PATIENT: RAJIV BARRERAACCOUNT: [id number] : 1945 LOCATION: ER AGE: 75 SEX: F EXAM STATUS: REG ER ORD. PHYSICIAN: VINCENT RIVERA DO REASON: fall down 7 steps, knee pain PROCEDURE: PELVIS XR PELVIS 1-2V 06/06/2021 11:20 PM INDICATION: Fall down 7 steps, knee pain COMPARISON: CT chest, abdomen and pelvis 06/06/2021 TECHNIQUE: AP view the abdomen and pelvis are obtained. FINDINGS/ IMPRESSION: There is no free intraperitoneal air. There is no portal venous gas. No pneumatosis coli. Cholecystectomy changes are present. There are no dilated loops of small or large bowel. There are no differential air-fluid levels. There is no organomegaly. No suspicious calcifications are identified along the expected course of the genitourinary tract. No suspicious osseous abnormality is identified. Limited evaluation of the sacrum due to overlying bowel gas. Electronically signed by: Kd Horne MD (06/06/2021 11:27 PM) [facility] DICTATED and SIGNED BY: KD HORNE MD DATE: 06/06/21 [id number] 0 IMAGING REPORT Signed PATIENT: RAJIV BARRERAACCOUNT: [id number] : 1945 LOCATION: ER AGE: 75 SEX: F EXAM STATUS: REG ER ORD. PHYSICIAN: VINCENT RIVERA DO REASON: Taruma PROCEDURE: HAND BILAT 3V XR HAND 3 VIEWS 06/06/2021 11:37 PM INDICATION: Trauma COMPARISON: None available. TECHNIQUE: 3 views of the right hand and 3 views the left hand are provided. FINDINGS/ IMPRESSION: There is no acute fracture or dislocation. There is advanced osteoarthrosis of the distal interphalangeal joints of the right third and fourth distal interphalangeal joints. Moderate osteophytosis of the distal second and fifth interphalangeal joints. There is severe osteoarthrosis of the second, third and fourth distal interphalangeal joints of the left hand. Mild osteoporosis of the first and carpometacarpal joints of the bilateral hands. Bone mineralization is within normal limits. Regional soft tissues are within normal limits. There is no soft tissue gas or osseous erosion. No radiopaque foreign body. Electronically signed by: Kd Horne MD (06/07/2021 12:15 AM) [facility] DICTATED and SIGNED BY: KD HORNE MD DATE: 06/07/21 [id number] 0 IMAGING REPORT Signed PATIENT: RAJIV BARRERAACCOUNT: [id number] : 1945 LOCATION: ER AGE: 75 SEX: F EXAM STATUS: REG ER ORD. PHYSICIAN: VINCENT RIVERA DO REASON: Trauma PROCEDURE: WRIST BILAT 2V XR WRIST 2 VIEWS 06/06/2021 11:37 PM INDICATION: Trauma COMPARISON: None available. TECHNIQUE: 2 views the right and 2 views left wrist are provided. FINDINGS/ IMPRESSION: There is no acute fracture or dislocation. Mild to moderate osteoarthrosis of the first carpometacarpal joint of the bilateral hands. Bone mineralization is within normal limits. Regional soft tissues are within normal limits. There is no soft tissue gas or osseous erosion. No radiopaque foreign body. Electronically signed by: Kd Horne MD (06/07/2021 12:34 AM) [facility] DICTATED and SIGNED BY: KD HORNE MD DATE: 06/07/21 [id number] IMAGING REPORT Signed PATIENT: RAJIV BARRERAACCOUNT: [id number] : 1945 LOCATION: ER AGE: 75 SEX: F EXAM STATUS: REG ER ORD. PHYSICIAN: VINCENT RIVERA DO REASON: Taruma PROCEDURE: TIBIA FIBULA BILAT XR KNEE 1-2 VIEWS, XR TIBIA+FIBULA 06/06/2021 11:37 PM INDICATION: Trauma COMPARISON: None available. TECHNIQUE: 2 views of the right and 2 views of the left tibia and fibula are provided. 2 views of the knee are provided. FINDINGS/ IMPRESSION: Tibia and fibula: There is no acute fracture or dislocation. Joint spaces are maintained. Bone mineralization is within normal limits. Regional soft tissues are within normal limits. There is no soft tissue gas or osseous erosion. No radiopaque foreign body. Of note, images are not labeled and therefore right left evaluation is limited. Knee: Images not labeled, limiting evaluation. 2 views of a single knee are pro vided. No significant knee joint effusion. Vascular calculations are present. There is no acute fracture or dislocation. Joint spaces are maintained. Bone mineralization is within normal limits. Regional soft tissues are within normal limits. There is no soft tissue gas or osseous erosion. No radiopaque foreign body. 11/04/2020: ECHOCARDIOGRAM The left ventricle is normal size. The left ventricular systolic function is normal and the ejection fraction is within normal range. Estimated ejection fraction 60%. There is normal LV segmental wall motion. Doppler and Color Flow revealed no significant aortic regurgitation. There is no significant aortic valvular stenosis. Doppler and Color Flow revealed trace mitral valve regurgitation. Doppler and Color Flow revealed no tricuspid valve regurgitation noted. VTE Prophylaxis Ordered VTE Prophylaxis Devices: No VTE Pharmacological Prophylaxi: Yes Assessment/Plan Assessment/Plan Fall at home - likely due to gait instability. PT for gait testing and training may need platform walker. Has a walker at home but does not use it. May temporarily need placement. Right scapula fracture -placed in sling. We will ask for physical medicine rehabilitation on orthopedic surgery suggestions for care Right rib fractures - posterior 3rd and 4th. Pain control Right pulmonary contusion -encouraged to have good oral care and incentive spirometer to mitigate the chances of this turning into pneumonia Leukocytosis -likely reactive due to trauma. Will monitor Microcytic anemia -likely iron deficiency, will place on iron and ascorbic acid Pancreatic cyst - with ductal dilation. Pre-existing condition. Lung nodule - 5mm. quit smoking prior to 2017. Needs annual follow up DM2 - sliding scale HTN - Cont home meds HLD - statin Parkinsons - TID sinemet FEN - ADA diet PPX - lovenox FULL CODE Dispo - inpatient Surrogate decision-maker is Erica campo Justifications for Admission Other Justification ASHLEE CANO MD Jun 07, 2021 08:06
[2021-06-07] MEDS: PANTOPRAZOLE 40 MG TABLET.DR. PO SCH (08:33)
[2021-06-07] MEDS: ENOXAPARIN 40 MG/0.4 ML SYRINGE. SQ SCH (08:33)
[2021-06-07] MEDS: CARBIDOPA/LEVODOPA 25/100MG TABLET PO SCH ×4 (08:33→21:44)
[2021-06-07] MEDS: oxyCODONE/APAP 5/325 1 TAB TABLET PO PRN ×3 (08:34→21:45)
[2021-06-07] MEDS: FLUoxetine HCL 10 MG CAPSULE PO SCH (08:34)
[2021-06-07] MEDS: LISINOPRIL 20 MG TABLET PO SCH (08:36)
[2021-06-07] MEDS: ONDANSETRON PF 4 MG/2 ML VIAL. IVP PRN ×2 (08:39→13:59)
--- NOTE | 2021-06-07 09:55 | PDOC2 ---
VICKI WATKINS FLANGING ROLL OPERATOR 06/07/21 0955: CONSULT Date of Consult Date of Consult DATE: 06/07/21 TIME: 09:46 Reason for Consult Reason for Consult: trauma consult Referring Physician Referring Physician: ER Identification/Chief Complaint Chief Complaint fall, right arm pain Source Source: Caregiver, Chart review, Patient History of Present Illness Reason for Visit: Daughter present and interprets for patient . Fall down stairs, significant pain to right abdomen. Pain with breathing. Noted imaging with scapular fracture, rib fx. Pancreatic lesion(has been evaluated by GI services as outpt) Denies abdominal pain, able to eat breakfast Past Medical History Cardiovascular: HTN, Hyperlipidemia CENTRAL NERVOUS SYSTEM: Other (Parkinson disease) Endocrine: Diabetes Past Surgical History Past Surgical History: Appendectomy (01/04/2018), Cholecystectomy (07/14/2018), Cataract Removal Family History Family History: Diabetes, High Cholestrol, Hypertension Social History Quit (2018) ALCOHOL: none Drugs: None Current Problem List Problem List Problems Medical Problems: (1) Closed right scapular fracture Status: Acute (2) Fall Status: Acute (3) Medication adverse effect Status: Acute (4) Microcytic anemia Status: Acute (5) Multiple rib fractures Status: Acute (6) Right pulmonary contusion Status: Acute Current Medications Current Medications Current Medications Diphtheria/ Tetanus/Acell Pertussis (Boostrix) 0.5 ml ONCE ONCE VAX IM Last administered on 06/06/21at 23:34; Start 06/06/21 at 22:30; Stop 06/06/21 at 22:31; Status DC Hydromorphone HCl (Dilaudid) 0.5 mg 1X ONCE IVP Last administered on 06/06/21at 23:31; Start 06/06/21 at 22:45; Stop 06/06/21 at 22:46; Status DC Iohexol (Omnipaque 300 Mg/ml) 60 ml 1X ONCE IV Last administered on 06/06/21at 23:26; Start 06/06/21 at 23:15; Stop 06/06/21 at 23:16; Status DC Info (CONTRAST GIVEN -- Rx MONITORING) 1 each PRN DAILY PRN MC SEE COMMENTS; Start 06/06/21 at 23:15; Stop 06/08/21 at 23:14 Sodium Chloride 1,000 ml @ 1,000 mls/hr 1X ONCE IV Last administered on 06/06/21at 23:57; Start 06/06/21 at 23:45; Stop 06/07/21 at 00:44; Status DC Sodium Chloride 1,000 ml @ 1,000 mls/hr 1X ONCE IV Last administered on 06/06/21at 23:58; Start 06/06/21 at 23:45; Stop 06/07/21 at 00:44; Status DC Ondansetron HCl (Zofran) 8 mg 1X ONCE IVP Last administered on 06/06/21at 23:55; Start 06/07/21 at 00:00; Stop 06/07/21 at 00:01; Status DC Metoclopramide HCl (Reglan Vial) 10 mg 1X ONCE IVP Last administered on 06/07/21at 00:25; Start 06/07/21 at 00:30; Stop 06/07/21 at 00:31; Status DC Prochlorperazine Edisylate (Compazine) 10 mg 1X ONCE IV Last administered on 06/07/21at 02:46; Start 06/07/21 at 02:45; Stop 06/07/21 at 02:46; Status DC Acetaminophen (Tylenol) 650 mg PRN Q6HRS PRN PO MILD PAIN / TEMP > 100.3'F; Start 06/07/21 at 07:45 Fentanyl Citrate (Fentanyl 2ml Vial) 25 mcg PRN Q3HRS PRN IVP SEVERE PAIN 7-10; Start 06/07/21 at 07:45 Tramadol HCl (Ultram) 50 mg PRN Q6HRS PRN PO MODERATE PAIN; Start 06/07/21 at 07:45 Ondansetron HCl (Zofran) 4 mg PRN Q4HRS PRN IVP NAUSEA/VOMITING Last administered on 06/07/21at 08:39; Start 06/07/21 at 07:45 Guaifenesin (Robitussin Dm) 10 ml PRN Q6HRS PRN PO COUGH; Start 06/07/21 at 07:45 Psyllium Hydrophilic Mucilloid (Metamucil Fiber Packet) 1 pkt QHS PO ; Start 06/07/21 at 21:00 Hydralazine HCl (Apresoline Inj) 10 mg PRN Q4HRS PRN IVP ELEVATED BP, SEE COMMENTS; Start 06/07/21 at 07:45 Enoxaparin Sodium (Lovenox 40mg Syringe) 40 mg Q24H SQ Last administered on 06/07/21at 08:33; Start 06/07/21 at 09:00 Lisinopril (Prinivil) 20 mg DAILY PO Last administered on 06/07/21at 08:36; Start 06/07/21 at 09:00 Carbidopa/Levodopa (Sinemet 25/100) 1 tab [id number] PO Last administered on 06/07/21at 08:33; Start 06/07/21 at 07:45 Pantoprazole Sodium (Protonix) 40 mg DAILYAC PO Last administered on 06/07/21at 08:33; Start 06/07/21 at 07:45 Fluoxetine HCl (PROzac) 10 mg DAILY PO Last administered on 06/07/21at 08:34; Start 06/07/21 at 09:00 Atorvastatin Calcium (Lipitor) 40 mg QHS PO ; Start 06/07/21 at 21:00 Insulin Glargine (Lantus Syringe) 40 unit QHS SQ ; Start 06/07/21 at 21:00 Insulin Human Lispro (HumaLOG) 0-9 UNITS TIDWMEALS SQ ; Start 06/07/21 at 08:00 Dextrose (Dextrose 50%-Water Syringe) 12.5 gm PRN Q15MIN PRN IV SEE COMMENTS; Start 06/07/21 at 07:45 Dextrose (Iv Dextrose 5%) 250 ml PRN Q15MIN PRN IV SEE COMMENTS; Start 06/07/21 at 07:45 Senna/Docusate Sodium (Senna Plus) 2 tab PRN BID PRN PO CONSTIPATION; Start 06/07/21 at 08:00 Magnesium Hydroxide (Milk Of Magnesia) 2,400 mg PRN DAILY PRN PO CONSTIPATION; Start 06/07/21 at 08:00 Oxycodone/ Acetaminophen (Percocet 5/325) 1 tab PRN Q6HRS PRN PO SEVERE PAIN Last administered on 06/07/21at 08:34; Start 06/07/21 at 08:00 Ferrous Sulfate (Feosol) 325 mg BIDAC PO ; Start 06/07/21 at 10:00 Ascorbic Acid (Vitamin C) 500 mg BIDAC PO ; Start 06/07/21 at 10:00 Active Scripts Active Reported Percocet 5-325 Mg Tablet (Oxycodone/Acetaminophen) 1 Each Tablet 1-2 Tab PO PRN Q4HRS PRN Citalopram Hbr (Citalopram Hydrobromide) 20 Mg Tablet 1 Tab PO DAILY Lisinopril 10 Mg Tablet 1 Tab PO DAILY Ferrous Sulfate 325 Mg Tablet 1 Tab PO BID Atorvastatin Calcium 10 Mg Tablet 10 Mg PO HS Celebrex (Celecoxib) 200 Mg Capsule 200 Mg PO DAILY 30 Days Metformin Hcl 1,000 Mg Tablet 1,000 Mg PO BID Novolog (Insulin Aspart) 100 Unit/1 Ml Cartridge 15 Unit SQ TIDWMEALS Lantus Solostar (Insulin Glargine,Hum.rec.anlog) 100 Unit/1 Ml Insuln.pen 40 Unit SQ QHS Allergies Allergies: Coded Allergies: No Known Drug Allergies (Unverified , 06/06/21) ROS General: No: Chills, Fatigue PSYCHOLOGICAL ROS: No: Anxiety Eyes: No Blurry vision, No Double vision HEENT: No: Heacaches, Sore Throat Hematological and Lymphatic: No: Bleeding Problems, Blood Clots Respiratory: YES: SOB with excertion; No: Cough Cardiovascular: No Chest Pain, No Palpitations Gastrointestinal: No Nausea, No Vomiting, No Abdominal Pain Genitourinary: No Dysuria, No Hematuria Musculoskeletal: Yes Joint Pain, Yes Muscle Pain, Yes Muscular Weakness Neurological: Yes Impaired Coord/balance; No Numbness/Tingling Skin: No Pruritus, No Rash Physical Exam General: Alert, Oriented X3, Cooperative HEENT: Atraumatic, PERRLA Lungs: Clear to auscultation, Normal air movement Heart: Regular rate, Normal S1, Normal S2 Abdomen: Soft, No tenderness Extremities: No clubbing, No cyanosis Skin: No rashes, No breakdown Neuro: Normal speech, Sensation intact Psych/Mental Status: Mental status NL, Mood NL MUSCULOSKELETAL: Other (right arm is in sling) Vitals VITALS Vital Signs Date Time Temp Pulse Resp B/P (MAP) Pulse Ox O2 Delivery O2 Flow Rate FiO2 06/07/21 08:36 87 122/45 06/07/21 08:34 19 Room Air 06/07/21 07:00 97.8 90 97.8 Labs Labs Laboratory Tests Test 06/06/21 22:15 06/07/21 07:58 White Blood Count 15.0 x10^3/uL (4.0-11.0) Red Blood Count 4.41 x10^6/uL (3.50-5.40) Hemoglobin 9.4 g/dL (12.0-15.5) Hematocrit 31.8 % (36.0-47.0) Mean Corpuscular Volume 72 fL (79-100) Mean Corpuscular Hemoglobin 21 pg (25-35) Mean Corpuscular Hemoglobin Concent 30 g/dL (31-37) Red Cell Distribution Width 17.6 % (11.5-14.5) Platelet Count 325 x10^3/uL (140-400) Neutrophils (%) (Auto) 85 % (31-73) Lymphocytes (%) (Auto) 7 % (24-48) Monocytes (%) (Auto) 8 % (0-9) Eosinophils (%) (Auto) 0 % (0-3) Basophils (%) (Auto) 1 % (0-3) Neutrophils # (Auto) 12.7 x10^3/uL (1.8-7.7) Lymphocytes # (Auto) 1.0 x10^3/uL (1.0-4.8) Monocytes # (Auto) 1.2 x10^3/uL (0.0-1.1) Eosinophils # (Auto) 0.0 x10^3/uL (0.0-0.7) Basophils # (Auto) 0.1 x10^3/uL (0.0-0.2) Segmented Neutrophils % 78 % (35-66) Band Neutrophils % 5 % (0-9) Lymphocytes % 12 % (24-48) Monocytes % 4 % (0-10) Eosinophils % 1 % (0-5) Platelet Estimate Adequate (ADEQUATE) Hypochromasia Mod Poikilocytosis Slight Anisocytosis Slight Microcytosis Slight Ovalocytes Few Prothrombin Time 13.1 SEC (11.7-14.0) Prothromb Time International Ratio 1.0 (0.8-1.1) Activated Partial Thromboplast Time 37 SEC (24-38) Sodium Level 136 mmol/L (136-145) Potassium Level 4.9 mmol/L (3.5-5.1) Chloride Level 102 mmol/L (98-107) Carbon Dioxide Level 22 mmol/L (21-32) Anion Gap 12 (6-14) Blood Urea Nitrogen 23 mg/dL (7-20) Creatinine 1.0 mg/dL (0.6-1.0) Estimated GFR (Cockcroft-Gault) 54.2 BUN/Creatinine Ratio 23 (6-20) Glucose Level 199 mg/dL (70-99) Calcium Level 8.7 mg/dL (8.5-10.1) Iron Level 30 ug/dL (50-170) Total Iron Binding Capacity 406 ug/dL (250-450) Iron Saturation 7 % (15-34) Total Bilirubin 0.4 mg/dL (0.2-1.0) Aspartate Amino Transf (AST/SGOT) 14 U/L (15-37) Alanine Aminotransferase (ALT/SGPT) 10 U/L (14-59) Alkaline Phosphatase 88 U/L (46-116) Troponin I High Sensitivity 7 ng/L (4-50) Total Protein 7.0 g/dL (6.4-8.2) Albumin 2.9 g/dL (3.4-5.0) Albumin/Globulin Ratio 0.7 (1.0-1.7) Thyroid Stimulating Hormone (TSH) 2.766 uIU/mL (0.358-3.74) Glucose (Fingerstick) 159 mg/dL (70-99) Laboratory Tests Test 06/06/21 22:15 06/07/21 07:58 White Blood Count 15.0 x10^3/uL (4.0-11.0) Red Blood Count 4.41 x10^6/uL (3.50-5.40) Hemoglobin 9.4 g/dL (12.0-15.5) Hematocrit 31.8 % (36.0-47.0) Mean Corpuscular Volume 72 fL (79-100) Mean Corpuscular Hemoglobin 21 pg (25-35) Mean Corpuscular Hemoglobin Concent 30 g/dL (31-37) Red Cell Distribution Width 17.6 % (11.5-14.5) Platelet Count 325 x10^3/uL (140-400) Neutrophils (%) (Auto) 85 % (31-73) Lymphocytes (%) (Auto) 7 % (24-48) Monocytes (%) (Auto) 8 % (0-9) Eosinophils (%) (Auto) 0 % (0-3) Basophils (%) (Auto) 1 % (0-3) Neutrophils # (Auto) 12.7 x10^3/uL (1.8-7.7) Lymphocytes # (Auto) 1.0 x10^3/uL (1.0-4.8) Monocytes # (Auto) 1.2 x10^3/uL (0.0-1.1) Eosinophils # (Auto) 0.0 x10^3/uL (0.0-0.7) Basophils # (Auto) 0.1 x10^3/uL (0.0-0.2) Segmented Neutrophils % 78 % (35-66) Band Neutrophils % 5 % (0-9) Lymphocytes % 12 % (24-48) Monocytes % 4 % (0-10) Eosinophils % 1 % (0-5) Platelet Estimate Adequate (ADEQUATE) Hypochromasia Mod Poikilocytosis Slight Anisocytosis Slight Microcytosis Slight Ovalocytes Few Prothrombin Time 13.1 SEC (11.7-14.0) Prothromb Time International Ratio 1.0 (0.8-1.1) Activated Partial Thromboplast Time 37 SEC (24-38) Sodium Level 136 mmol/L (136-145) Potassium Level 4.9 mmol/L (3.5-5.1) Chloride Level 102 mmol/L (98-107) Carbon Dioxide Level 22 mmol/L (21-32) Anion Gap 12 (6-14) Blood Urea Nitrogen 23 mg/dL (7-20) Creatinine 1.0 mg/dL (0.6-1.0) Estimated GFR (Cockcroft-Gault) 54.2 BUN/Creatinine Ratio 23 (6-20) Glucose Level 199 mg/dL (70-99) Calcium Level 8.7 mg/dL (8.5-10.1) Iron Level 30 ug/dL (50-170) Total Iron Binding Capacity 406 ug/dL (250-450) Iron Saturation 7 % (15-34) Total Bilirubin 0.4 mg/dL (0.2-1.0) Aspartate Amino Transf (AST/SGOT) 14 U/L (15-37) Alanine Aminotransferase (ALT/SGPT) 10 U/L (14-59) Alkaline Phosphatase 88 U/L (46-116) Troponin I High Sensitivity 7 ng/L (4-50) Total Protein 7.0 g/dL (6.4-8.2) Albumin 2.9 g/dL (3.4-5.0) Albumin/Globulin Ratio 0.7 (1.0-1.7) Thyroid Stimulating Hormone (TSH) 2.766 uIU/mL (0.358-3.74) Glucose (Fingerstick) 159 mg/dL (70-99) Assessment/Plan Assessment/Plan trauma, fall, rib fx, scapular fx would recommend supportive care, pulmonary toiletry, consider ortho eval for scapular fx no general surgery indications JADE NGUYỄN MD 06/07/21 1203: CONSULT Assessment/Plan Assessment/Plan Patient seen and examined. Right-sided flank and abdominal pain mostly over the rib imaging showing rib fracture right scapular fracture. Agree with Vanesa assessment plan for pulmonary toilet consultation for Ortho for their input and evaluation. No general surgery issues at this time VICKI WATKINS APRN Jun 07, 2021 09:55 JADE NGUYỄN MD Jun 07, 2021 12:03
[2021-06-07] MEDS: FERROUS SULFATE 325 MG TABLET. PO SCH ×2 (10:15→17:45)
[2021-06-07] MEDS: ASCORBIC ACID 500 MG TABLET PO SCH ×2 (10:15→17:45)
[2021-06-07 11:00] VITALS: BP 131/44
[2021-06-07] MEDS: MUPIROCIN 2 % OINTMENT 22GM TUBE. TP SCH ×2 (12:59→21:46)
[2021-06-07 13:08] LABS: BARBITURATES NEG (NEG); BENZODIAZEPINES NEG (NEG); CANNABINOIDS NEG (NEG); COCAINE NEG (NEG); METHADONE NEG (NEG); OPIATES POS (NEG); PHENCYCLIDINE NEG (NEG)
[2021-06-07 13:09] LABS: AMPHETAMINE/METHAMPHETAMINE NEG (NEG)
[2021-06-07 13:14] LABS: BILIRUBIN,URINE NEGATIVE (NEG); CLARITY,URINE CLEAR; COLOR,URINE YELLOW; NITRITE,URINE NEGATIVE (NEG); PROTEIN,URINE 30 mg/dL (NEG-TRACE)
[2021-06-07 13:29] LABS: BACTERIA,URINE 0 /HPF (0-FEW); RBC,URINE OCC /HPF (0-2); WBC,URINE OCC /HPF (0-4)
[2021-06-07 15:00] VITALS: BP 138/56
--- NOTE | 2021-06-07 15:22 | CONS ---
DATE OF CONSULTATION: 06/07/2021 ATTENDING PHYSICIAN: Suni Rob DO REASON FOR CONSULTATION: The patient was seen at the request of Dr. Rob for rehab evaluation. HISTORY OF PRESENT ILLNESS: This is a 75-year-old female with known diabetes mellitus, hypertension, hyperlipidemia, Parkinson's disease, admitted through the Emergency Room after she fell down 7-9 stairs at home where she lives with her daughter and her family. She fell backwards and landed on her right side and she sustained fracture, right scapula, not involving the shoulder joint and also right rib cage. The patient complains of pain in that area. She denies any neck or back pain or any pain in her extremities. The patient received arm sling to her right shoulder. The patient is not known allergic to any medications. She had been independent with her mobility and self-care skills prior to the present hospitalization, not using any assistive devices. The patient denies any tingling, numbness sensation in the extremities. Family history of diabetes mellitus, hypercholesterolemia and hypertension. She quit smoking in 2018. PHYSICAL EXAMINATION: GENERAL: Today revealed a middle-aged female. She is alert, oriented to time, place, person and circumstance and follows commands appropriately. NEUROLOGIC: Moves all 4 extremities voluntarily, where she had 4+/5 grade muscle strength. She is protecting her right shoulder. She had tenderness to palpation over right upper rib cage and scapular area. No tenderness to palpation of cervical, thoracic or lumbar spine was noted. She had bruised skin over right thenar eminence and also over right forearm dorsal aspect. She seemed to have equal perception of touch and pinprick sensation bilaterally. Deep tendon reflexes are 1+ at both knees, absent at both ankles. The patient had mild crepitus on range of motion of her knee joint with mild knee joint effusion, left side more than right side. She had painful range of motion of both hip joints. She had abraded skin over the dorsal aspect of left knee. The patient is independent with bed mobility, transfers and up walking without any assistive devices on level surface. ASSESSMENT: A middle-aged female with known Parkinson's disease, diabetes mellitus, hypertension, hyperlipidemia, accidental fall on the stairs, onset 06/06 2021 with fracture, right scapula, not involving the shoulder joint and also right upper rib cage area and bruised skin, right hand and right forearm and abraded skin, left knee. The patient also with known degenerative joint disease of both knees and degenerative changes in her hands as noted by x-rays and peripheral neuropathy. RECOMMENDATIONS: To try physical modalities to get her up as tolerated. I have instructed her in proper body mechanics and deep breathing exercises. Home when medically stable with outpatient followup. I have informed the family members how to help her. Agree with the use of arm sling, but she can start moving her right shoulder as she can tolerate mainly Codman's exercises. Avoid any activity that irritates her shoulder. Dr. Rob, I appreciate asking me to participate in the care of this interesting patient. I will be glad to see her for followup with you on as-needed basis. KIRSTIN DR: Daron TID: [id number] CC: ELLIOTT DRAKE MD
[2021-06-07 19:00] VITALS: BP 160/52
[2021-06-07] MEDS ORDERED: INSULIN GLARGINE SYRINGE. SQ SCH (21:00)
[2021-06-07] MEDS ORDERED: PSYLLIUM HUSK (SUGAR FREE) 1 PKT PACKET PO SCH (21:00)
[2021-06-07] MEDS ORDERED: ATORVASTATIN CALCIUM 40 MG TABLET. PO SCH (21:00)
[2021-06-07 23:00] VITALS: BP 136/54
[2021-06-08 03:00] VITALS: BP 121/53
[2021-06-08 07:00] VITALS: BP 134/59
[2021-06-08] MEDS: FLUoxetine HCL 10 MG CAPSULE PO SCH (07:41)
[2021-06-08] MEDS: oxyCODONE/APAP 5/325 1 TAB TABLET PO PRN (07:42)
[2021-06-08] MEDS: CARBIDOPA/LEVODOPA 25/100MG TABLET PO SCH ×2 (07:42→12:34)
[2021-06-08] MEDS: FERROUS SULFATE 325 MG TABLET. PO SCH (07:42)
[2021-06-08] MEDS: ASCORBIC ACID 500 MG TABLET PO SCH (07:42)
[2021-06-08] MEDS: PANTOPRAZOLE 40 MG TABLET.DR. PO SCH (07:42)
[2021-06-08] MEDS: MUPIROCIN 2 % OINTMENT 22GM TUBE. TP SCH (07:44)
[2021-06-08] MEDS: LISINOPRIL 20 MG TABLET PO SCH (07:44)
[2021-06-08] MEDS: ENOXAPARIN 40 MG/0.4 ML SYRINGE. SQ SCH (07:45)
[2021-06-08 07:51] LABS: ALBUMIN 2.6 g/dL (3.4-5.0); ALBUMIN/GLOBULIN RATIO 0.8 (1.0-1.7); CALCIUM 8.8 mg/dL (8.5-10.1); CREATININE 0.7 mg/dL (0.6-1.0); GFR 81.8; POTASSIUM 4.2 mmol/L (3.5-5.1); TOTAL BILIRUBIN 0.4 mg/dL (0.2-1.0)
[2021-06-08] MEDS: INSULIN LISPRO 300 UNITS/3 ML VIAL. SQ SCH ×2 (08:00→12:42)
[2021-06-08 08:01] LABS: BASO % 1 % (0-3); EOS % 0 % (0-3); HEMATOCRIT 29.7 % (36.0-47.0); LYMPH # 1.1 x10^3/uL (1.0-4.8); LYMPH % 14 % (24-48); MEAN CORPUSCULAR HEMOGLOBIN 22 pg (25-35); MEAN CORPUSCULAR HGB CONC 31 g/dL (31-37); MEAN CORPUSCULAR VOLUME 72 fL (79-100); MONO % 13 % (0-9); NEUT # 5.5 x10^3/uL (1.8-7.7); NEUT % 72 % (31-73); PLATELET COUNT 267 x10^3/uL (140-400); RED BLOOD COUNT 4.12 x10^6/uL (3.50-5.40); RED CELL DISTRIBUTION WIDTH 17.9 % (11.5-14.5); WHITE BLOOD COUNT 7.7 x10^3/uL (4.0-11.0)
[2021-06-08 10:58] VITALS: BP 119/58
--- NOTE | 2021-06-08 12:20 | NUR ---
[facility] following. Discussed with RN, pt from home with family, room air, ada diet. Surgery, Ortho and Dr. Euceda following. Pt will likely return home upon discharge. [facility] will continue to follow. Addendum: 06/08/21 at 1400 by ANJEL SAWYER Discharge order for home with self care.
[2021-06-08] MEDS ORDERED: OXYC1TAB15 PO (13:29)
--- NOTE | 2021-06-08 13:32 | PDOC3 ---
[facility]-Discharge Summary Date of Admission: Date of Admission: Jun 07, 2021 Date of Discharge: Date of Discharge: Jun 08, 2021 Admission Diagnosis: Problems: (1) Closed right scapular fracture (2) Multiple rib fractures Consults: Consults: PMR, surgery Hospital Course: Hospital Course: Ms Ocampo is a 75yo female who is [place]-speaking only with PMHx DM2, HTN, HLD, Parkinsons who comes to ED after a fall down 7-9 stairs. Her daughter describes the story about 2029 she fell backwards down about 7 stairs and landed on her right side did not lose consciousness but noted her right shoulder did not appear normal and she was not able to move her right arm. Her pain was minimally relieved with a dose of Aleve. Patient complains of right upper back pain and difficulty lifting up her right arm no loss of sensation no numbness or tingling. She complains of right facial pain where there is bruising bilateral hand bruising and swelling and a skin tear on her right anterior tibia. She is fully vaccinated against COVID-19, does not smoke (quit in 2018), does not drink or use illicit drugs has no recent travel or sick contacts. WBC 15, Hb 9.4, MCV 72, platelets 325, INR 1, PTT 37, NA 136, K4.9, BUN 23, CR 1, glucose 199, calcium 8.7, bilirubin 0.4, AST 14, ALT 10, alk phos 88, albumin 2.9, high-sensitivity troponin is 7. EKG. Sinus arrhythmia rate 95 bpm normal axis and intervals otherwise, QTC [address] segment elevations or T wave inversions. Found on trauma series imaging to have possible right scapular fracture posterior right third and fourth rib fractures, right upper lobe pulmonary contusion. Was given 0.5mg Dilaudid and subsequent episode of emesis. Unable to ambulated safely in ED, admitted for further care. 06/08 Patient evaluate examined at bedside. In chair doing well. Daughter provided translation. Pain well controlled with current medications. Can discharge today and if any complications or worsening pain advised them to follow-up with an orthopedic surgeon. She was agreeable with this. Greater than 30 minutes spent on discharge. 21 minutes advance care planning. Disposition: Disposition/Orders: D/C to Home Activity: Activity: Resume previous activity Diet: Diet: other (diabetic) Medications: Home Meds Active Scripts Oxycodone/Apap 5-325 (PERCOCET 5-325 MG TABLET ) 1 Each Tablet, 1-2 TAB PO PRN Q6HRS PRN for PAIN for 14 Days, #45 TAB Prov:ASHLEE DORAN MD 06/08/21 Reported Medications Oxycodone/Apap 5-325 (PERCOCET 5-325 MG TABLET ) 1 Each Tablet, 1-2 TAB PO PRN Q4HRS PRN for PAIN, #30 TAB 0 Refills 07/14/18 Citalopram Hydrobromide (CITALOPRAM HBR) 20 Mg Tablet, 1 TAB PO DAILY for DEPRESSION, #30 TAB 5 Refills 07/10/18 Lisinopril (LISINOPRIL) 10 Mg Tablet, 1 TAB PO DAILY for BP, #30 TAB 5 Refills 07/10/18 Ferrous Sulfate (FERROUS SULFATE) 325 Mg Tablet, 1 TAB PO BID for ANEMIA, #60 TAB 3 Refills 07/10/18 Atorvastatin Calcium (ATORVASTATIN CALCIUM) 10 Mg Tablet, 10 MG PO HS for FOR CHOLESTEROL, #30 TAB 0 Refills 07/10/18 Celecoxib (CELEBREX) 200 Mg Capsule, 200 MG PO DAILY for ARTHRITIS for 30 Days, #30 CAP 0 Refills 01/05/18 Metformin Hcl (METFORMIN HCL) 1,000 Mg Tablet, 1000 MG PO BID, TAB 01/03/18 Insulin Aspart (NOVOLOG) 100 Unit/1 Ml Cartridge, 15 UNIT SQ TIDWMEALS, EACH 01/03/18 Insulin Glargine,Hum.rec.anlog (LANTUS SOLOSTAR) 100 Unit/1 Ml Insuln.pen, 40 UNIT SQ QHS, #15 ML 3 Refills 01/03/18 Scheduled Atorvastatin Calcium (Atorvastatin Calcium), 10 MG PO HS, (Reported) Celecoxib (Celebrex), 200 MG PO DAILY, (Reported) Citalopram Hydrobromide (Citalopram Hbr), 1 TAB PO DAILY, (Reported) Ferrous Sulfate (Ferrous Sulfate), 1 TAB PO BID, (Reported) Insulin Aspart (Novolog), 15 UNIT SQ TIDWMEALS, (Reported) Insulin Glargine,Hum.rec.anlog (Lantus Solostar), 40 UNIT SQ QHS, (Reported) Lisinopril (Lisinopril), 1 TAB PO DAILY, (Reported) Metformin Hcl (Metformin Hcl), 1,000 MG PO BID, (Reported) Scheduled PRN Oxycodone/Apap 5-325 (Percocet 5-325 Mg Tablet ), 1-2 TAB PO PRN Q4HRS PRN for PAIN, (Reported) Oxycodone/Apap 5-325 (Percocet 5-325 Mg Tablet ), 1-2 TAB PO PRN Q6HRS PRN for PAIN Justicifation of Admission Dx: Justifications for Admission: Justification of Admission Dx: Yes (fracture, fall) ASHLEE DORAN MD Jun 08, 2021 13:32
[2021-06-08 14:32] VITALS: BP 118/57
--- NOTE | 2021-06-08 17:23 | NUR ---
Discharge Note: CHUCKY BARRERA HORATIO Discharge instructions and discharge home medications reviewed with Family Member and a copy given. All questions have been answered and understanding verbalized. The following instructions and handouts were given: Worsening symptoms, medications, follow up, and education of scapula fracture. Discontinued lines and drains: IV removed and telemetry disconinued and removed. Patient discharged to home with family accompanied by daughter.
== END 2021-06-08 14:30 | disposition home or self-care (01) | DRG 205 ==
LOC: ER 21:08 → 5 NORTH 06-07 00:29
PROVIDERS: ADMIT Internal Medicine; ATTEND Internal Medicine
DX: S27.321A Contusion of lung, unilateral, initial encounter (principal); E43 Unspecified severe protein-calorie malnutrition; K86.2 Cyst of pancreas; M84.411A Pathological fracture, right shoulder, initial encounter for fracture; M84.48XA Pathological fracture, other site, initial encounter for fracture; G20 Parkinson's disease; D50.9 Iron deficiency anemia, unspecified; E10.9 Type 1 diabetes mellitus without complications; D72.829 Elevated white blood cell count, unspecified; E78.5 Hyperlipidemia, unspecified; G62.9 Polyneuropathy, unspecified; I10 Essential (primary) hypertension; I25.10 Atherosclerotic heart disease of native coronary artery without angina pectoris; J43.9 Emphysema, unspecified; M17.0 Bilateral primary osteoarthritis of knee; M19.011 Primary osteoarthritis, right shoulder; M19.012 Primary osteoarthritis, left shoulder; M48.02 Spinal stenosis, cervical region; M81.0 Age-related osteoporosis without current pathological fracture; Z79.4 Long term (current) use of insulin; Z82.49 Family history of ischemic heart disease and other diseases of the circulatory system; Z83.3 Family history of diabetes mellitus; Z87.891 Personal history of nicotine dependence; Z90.49 Acquired absence of other specified parts of digestive tract; W01.0XXA Fall on same level from slipping, tripping and stumbling without subsequent striking against object, initial encounter; Y93.89 Activity, other specified; Y92.89 Other specified places as the place of occurrence of the external cause; Y99.8 Other external cause status; R91.1 Solitary pulmonary nodule
CPT/HCPCS: 36415; 70450; 71250; 71260; 72125; 72170; 73090; 74177; 80053; 80307; 81001; 82607; 82962; 83540; 83550; 84443; 84484; 85007; 85025; 85610; 85730; 90471; 90715; 93005; 96361; 96374; 96375; A4565; J0360; J0780; J1170; J1650; J1815; J2405; J2765; J7030; Q9967; 73100-50; 73130-50; 73560-50; 73590-50; 97116-GP; 97535-GO; 99285-25; G0378